=== PATIENT | female | born 1940 | race Caucasian/White ===

== ENCOUNTER 2021-06-22 09:28 | Outpatient (REF) | payer MEDICARE, SELFPAY ==
--- NOTE | ~2021-06-22 | MM_ITS ---
EXAMINATION: BONE DENSITOMETRY CLINICAL INDICATION: Asymptomatic menopausal state. COMPARISON: Previous BD dated 04/09/2028 and baseline BD dated 03/13/2012. TECHNIQUE: Using a [employer] DXA System (software version: 13.1) manufactured by [employer], dual-energy x-ray absorptiometry was performed of the lumbar spine and left hip. The images are of good technical quality. Summary results are attached. FINDINGS: AP SPINE L1-L4: Current: BMD 1.370 g/cm2, Z-score 3.1, T-score 1.6, normal, 1.9% increase from previous, 7.5% increase from baseline (<5% change is not significant). Prior: BMD 1.345 g/cm2. Baseline: BMD 1.275 g/cm2. LEFT FEMUR, NECK: Current: BMD 0.754 g/cm2, Z-score 0.0, T-score -2.0, osteopenia. Prior: BMD 0.831 g/cm2. Baseline: BMD 1.027 g/cm2. LEFT FEMUR, TOTAL: Current: BMD 0.831 g/cm2, Z-score 0.5, T-score -1.4, osteopenia, 6.9% decrease from previous, 18.6% decrease from baseline (<5% change is not significant). Prior: BMD 0.893 g/cm2. Baseline: BMD 1.021 g/cm2. IDENTIFIED RISK FACTORS: Height loss, menopause. HISTORY OF FRACTURE: None listed. MEDICATIONS: Vitamin D. MM/XR DEXA axial skeleton IMPRESSION: 1. DIAGNOSIS: Osteopenia based on the lowest T-score value of -2.0 in the femoral neck applying World Health Organization criteria. 2. 10-YEAR FRACTURE RISK PREDICTION, FRAX: Major osteoporotic fracture (clinical spine, forearm, hip or shoulder) 16.3%. Hip fracture 5.1%. 3. Treatment Recommendations: NOF guidelines recommend consideration for treatment in postmenopausal women and men age 50 and older presenting with the following: -A hip or vertebral (clinical or morphometric) fracture. -T-score less than or equal to -2.5 at the femoral neck or spine after appropriate evaluation to exclude secondary causes. -Low bone mass at the hip or spine and a 10-year fracture probability by FRAX of greater than or equal to 3% for hip fracture or greater than or equal to 20% for major osteoporotic fracture based on the [place] adapted WHO algorithm. 4. Other Recommendations: All treatment decisions require clinical judgment and consideration of individual patient factors, including patient preferences, comorbidities, previous drug use, risk factors not captured in the FRAX model (e.g. frailty, falls, vitamin D deficiency, increased bone turnover, interval significant decline in bone density) and possible under or overestimation of fracture risk by FRAX. Additional medical evaluation for secondary cause of low bone mineral density may be appropriate. FUTURE SCAN RECOMMENDATION: People with diagnosed cases of osteoporosis or at high risk for fracture should have regular bone mineral density tests. For patients eligible for Medicare, routine testing is allowed once every 2 years. The testing frequency can be increased to one year for patients who have rapidly progressing disease, those who are receiving or discontinuing medical therapy to restore bone mass, or have additional risk factors.
--- NOTE | ~2021-06-22 | MM_ITS ---
EXAMINATION: MM SCREENING DIGITAL BREAST TOMOSYNTHESIS, BILATERAL CLINICAL INFORMATION: Screening. Asymptomatic. COMPARISON: Mammography: May 10, 2020 and studies dating back to March 13, 2012 TECHNIQUE: Digital breast tomosynthesis is performed in both the craniocaudal and mediolateral oblique views along with computer-aided detection (CAD). Synthesized 2D images are generated from the tomosynthesis. FINDINGS: There are scattered areas of fibroglandular density (ACR BI-RADS breast composition Category b). There are no significant masses, abnormal calcifications, or other abnormalities. MM/MM tomosynthesis screening BI IMPRESSION: There are no significant changes from prior study. ASSESSMENT: BI-RADS 1: Negative RECOMMENDATION: Routine annual mammography screening. This patient's information was entered into a reminder system with a target due date for their next mammogram.
== END 2021-06-22 09:29 | disposition home or self-care (01) ==
LOC: HO.MAMMO 09:28
PROVIDERS: PCP Internal Medicine; Visit Provider Internal Medicine
DX: Z12.31 Encounter for screening mammogram for malignant neoplasm of breast (principal); Z13.850 Encounter for screening for traumatic brain injury; M85.852 Other specified disorders of bone density and structure, left thigh; Z78.0 Asymptomatic menopausal state; Z79.899 Other long term (current) drug therapy
CPT/HCPCS: 77063; 77067; 77080

== ENCOUNTER 2021-07-23 07:44 | Outpatient (REF) | payer MEDICARE, SELFPAY ==
[2021-07-23 12:10] LABS: Alanine Aminotransferase 14 U/L (0-31); Aspartate Amino Transferase 15 U/L (5-31); Cholesterol 229 mg/dL; HDL Cholesterol 64 mg/dL; LDL Cholesterol Calculated 149 mg/dl; Triglycerides 84 mg/dL
== END 2021-07-23 07:45 | disposition home or self-care (01) ==
LOC: HO.HMGCLDS 07:44
PROVIDERS: PCP Internal Medicine; Visit Provider Internal Medicine
DX: E78.5 Hyperlipidemia, unspecified (principal)
CPT/HCPCS: 36415; 80061; 84450; 84460

== ENCOUNTER 2022-06-27 09:38 | Outpatient (REF) | payer MEDICARE, SELFPAY ==
--- NOTE | ~2022-06-27 | MM_ITS ---
EXAMINATION: MM SCREENING DIGITAL BREAST TOMOSYNTHESIS, BILATERAL CLINICAL INFORMATION: Screening. Asymptomatic. Remote left lumpectomy for breast cancer, 1998. COMPARISON: Mammography: 06/22/2021, 05/10/2020, 04/13/2019 TECHNIQUE: Digital breast tomosynthesis is performed in both the craniocaudal and mediolateral oblique views along with computer-aided detection (CAD). Synthesized 2D images are generated from the tomosynthesis. FINDINGS: There are scattered areas of fibroglandular density (ACR BI-RADS breast composition Category b). There are no significant masses, abnormal calcifications, or other abnormalities. There are postsurgical changes on the left with mild reduced breast size and minor scarring. There are benign coarse calcifications again seen posterior upper outer left breast. No developing density or architectural abnormality. No significant changes. MM/MM tomosynthesis screening BI IMPRESSION: No mammographic evidence of malignancy. ASSESSMENT: BI-RADS 2: Benign RECOMMENDATION: Routine annual mammography screening. This patient's information was entered into a reminder system with a target due date for their next mammogram.
== END 2022-06-27 09:39 | disposition home or self-care (01) ==
LOC: HO.MAMMO 09:38
PROVIDERS: PCP Internal Medicine; Visit Provider Internal Medicine
DX: Z12.31 Encounter for screening mammogram for malignant neoplasm of breast (principal)
CPT/HCPCS: 77063; 77067

== ENCOUNTER 2022-07-26 08:13 | Outpatient (REF) | payer MEDICARE, SELFPAY ==
[2022-07-26 11:53] LABS: Cholesterol 259 mg/dL; HDL Cholesterol 73 mg/dL; LDL Cholesterol Calculated 170 mg/dl; Triglycerides 82 mg/dL
[2022-07-26 12:16] LABS: Vitamin D 25-OH Total 44.5 ng/mL (>30)
== END 2022-07-26 08:14 | disposition home or self-care (01) ==
LOC: HO.HMGCLDS 08:13
PROVIDERS: PCP Internal Medicine; Visit Provider Internal Medicine
DX: E78.5 Hyperlipidemia, unspecified (principal); M85.852 Other specified disorders of bone density and structure, left thigh; Z78.0 Asymptomatic menopausal state
CPT/HCPCS: 36415; 80061; 82306

== ENCOUNTER 2023-03-10 08:25 | Day surgery (SDC) | payer MEDICARE, SELFPAY ==
[2023-03-04 15:17] VITALS: BMI 26.3
--- NOTE | 2023-03-06 13:20 | MHC.SHP ---
Pre-Procedural Eval Section A Date of Service: 03/06/23 The patient is an INPATIENT: No Changes since office visit: No Cold of Flu in the past 2 weeks, No New Medical Problems, No Changes in Medication and No Patient answered all questions The History & Physical has been completed within 30 days and I have reviewed it.: Yes Section B Chief Complaint: Age-related nuclear cataract, right eye Allergies: Allergies Allergy/AdvReac Type Severity Reaction Status Date / Time nitrofurantoin AdvReac Severe Diarrhea Verified 03/04/23 15:17 atorvastatin AdvReac Intermediate muslce pain Verified 03/04/23 15:17 simvastatin AdvReac Intermediate muscle pain Verified 03/04/23 15:17 Plan Diagnosis/Plan: Unchanged I have reviewed the history and physical and performed a pertinent physical examination on my patient. No changes have occurred unless specified. Time Spent With Patient Time: Total time managing care of this patient today ____ minutes.
--- NOTE | 2023-03-07 10:10 | P.CONAN_ITS ---
Documented by User: Tri Mello NP 03/07/23 10:13 HPI - Anesthesia Eval Consult details Narrative: 83yo F for Right Cataract Extraction IOL Insertion PCP cleared No previous cataract PMFSH Active Problems Active Problems: All Active Problems (Updated 03/04/23 @ 15:19 by Mary Jaeger RN) Menopause (Acute) Statin intolerance (Acute) Dyslipidemia (Acute) Osteopenia of left femoral neck (Acute) Past Medical History Medical History (Updated 03/04/23 @ 15:19 by Mary Jaeger RN) Cataract Ductal carcinoma in situ (DCIS) of breast Dyslipidemia H/O bladder problems Menopause Osteopenia of left femoral neck Sciatica of right side Statin intolerance Family History Family History Father No problems noted. Mother No problems noted. Maternal Aunt No problems noted. Maternal Uncle No problems noted. Surgical History Surgical History (Updated 03/04/23 @ 15:16 by Mary Jaeger RN) History of prolapse of bladder History of pubovaginal sling Hx of colonoscopy S/P lumpectomy, left breast Social History Social History Housing: House Are you a primary director of critical care to a significant other at home: No Do you presently have visiting nurse or other home services: No Alcohol intake: current Patient Tobacco Use Status: Never used Tobacco e-Cigarette/Vaping Use: Never Used Use of substances other than those prescribed or required for medical reasons: No Have you been hit, kicked, punched, or otherwise hurt by someone within the past year? If so, by whom?: No Are you DNR?: No Advance Directives: No Advance Directives Information Provided: Yes Advance Directives on File: No Recently lost weight without trying: No Nutrition Risks: Surgical patient >75years Current occupational status: retired Cognitive needs: No Hearing needs: No Vision needs: Yes Meds Allergies Allergy/AdvReac Type Severity Reaction Status Date / Time nitrofurantoin AdvReac Severe Diarrhea Verified 03/10/23 09:03 atorvastatin AdvReac Intermediate muslce pain Verified 03/10/23 09:03 simvastatin AdvReac Intermediate muscle pain Verified 03/10/23 09:03 Home Medications Medication Instructions Recorded Confirmed Last Taken Type cholecalciferol (vitamin D3) 50 50 mcg PO DAILY 07/13/20 03/10/23 Unknown History mcg (2,000 unit) tablet Exam Exam Date and Time: March 07, 2023 1010 Height,Weight and Vital Signs: Height 5 ft 6 in Weight 73.936 kg Assessment and Plan Assessment Anesthesia Assessment: Chart Reviewed Documented by User: Jaime Hernandez MD 03/10/23 18:11 [facility] Past Medical History Medical History (Updated 03/04/23 @ 15:19 by Mary Jaeger RN) Cataract Ductal carcinoma in situ (DCIS) of breast Dyslipidemia H/O bladder problems Menopause Osteopenia of left femoral neck Sciatica of right side Statin intolerance Functional capacity: independent ambulation Family History Family History Father No problems noted. Mother No problems noted. Maternal Aunt No problems noted. Maternal Uncle No problems noted. Family history of problems with anesthesia: No Surgical History Surgical History (Updated 03/04/23 @ 15:16 by Mary Jaeger RN) History of prolapse of bladder History of pubovaginal sling Hx of colonoscopy S/P lumpectomy, left breast History of Problems with Anesthesia: No Social History Social History Housing: House Are you a primary director of critical care to a significant other at home: No Do you presently have visiting nurse or other home services: No Alcohol intake: current Patient Tobacco Use Status: Never used Tobacco e-Cigarette/Vaping Use: Never Used Use of substances other than those prescribed or required for medical reasons: No Have you been hit, kicked, punched, or otherwise hurt by someone within the past year? If so, by whom?: No Are you DNR?: No Advance Directives: No Advance Directives Information Provided: Yes Advance Directives on File: No Recently lost weight without trying: No Nutrition Risks: Surgical patient >75years Current occupational status: retired Cognitive needs: No Hearing needs: No Vision needs: Yes Meds Allergies Allergy/AdvReac Type Severity Reaction Status Date / Time nitrofurantoin AdvReac Severe Diarrhea Verified 03/10/23 09:03 atorvastatin AdvReac Intermediate muslce pain Verified 03/10/23 09:03 simvastatin AdvReac Intermediate muscle pain Verified 03/10/23 09:03 Home Medications Medication Instructions Recorded Confirmed Last Taken Type cholecalciferol (vitamin D3) 50 50 mcg PO DAILY 07/13/20 03/10/23 Unknown History mcg (2,000 unit) tablet Exam Airway Mallampati Class: III Neck ROM: Full Loose/Missing/Broken Teeth: Yes (chipped teeth) Assessment and Plan Final Anesthetic Review Family History of Problems with Anesthesia: No History of Problems with Anesthesia: No NPO: Yes ASA Class: II Final Preanesthetic Review: Meds/Allgs Chart Reviewed, Consent Obtained/Reviewed and Anes Risks/Benef Reviewed Patient Risk: Intermediate Procedure Risk: Intermediate Anesthetic Plan Anesthetic Plan: MAC: and Agree w/ Assess. and Plan Disposition: Standard PACU
[2023-03-10 09:04] VITALS: BP 167/97; PULSE 89; RESP 16; TEMP 36.7; O2SAT 97
[2023-03-10] MEDS: Tetracaine HCl/PF 0.5% Oph Sol 4 ML DROPS 1 DROP EYE-RIGHT (09:09)
[2023-03-10] MEDS: Cyclopentolate 1 % Ophth Sol 2 ML DRPBTL 1 DROP EYE-RIGHT ×3 (09:10→09:26)
[2023-03-10] MEDS: Ketorolac Tromethamine 0.5% Op 5 ML DROPS 1 DROP EYE-RIGHT ×3 (09:14→09:30)
[2023-03-10] MEDS: Phenylephrine HCL 2.5% Oph SoL 2 ML BOTTLE 1 DROP EYE-RIGHT ×3 (09:16→09:32)
[2023-03-10] MEDS: Lactated Ringers 500 ML 50 ML IV (09:24)
--- NOTE | 2023-03-10 10:37 | HO.PNOPHT ---
Ophthalmology Procedure Procedure Date of Service: 03/10/23 Ophthalmology Viscoelastic: Healdonna Duet Dual Pack Pro Ophthalmology Lenses: TECNIS [id number] (24.5) Procedure Notes: PREOPERATIVE DIAGNOSIS: Decreased visual acuity right eye secondary to cataract POSTOPERATIVE DIAGNOSIS: Same PROCEDURE: Right cataract extraction with intraocular lens insertion SURGEON: Matt Hanna M.D. ANESTHESIA: Topical/MAC ESTIMATED BLOOD LOSS: None COMPLICATIONS: None After obtaining informed consent, the patient was brought to the operating room suite and placed in the supine position. After adequate sedation per anesthesia, topical drops of Tetracaine were given to the right eye. The eye was then prepped and draped in the usual sterile fashion. The operating room microscope was then positioned over the operative eye and a lid speculum placed. A paracentesis was created. Viscoelastic was then instilled into the anterior chamber. A three plane incision was then created temporally, utilizing a 2.85 mm keratome. Capsulotomy forceps were then utilized to create a circular tear capsulotomy. Hydrodissection and hydrodelineation were carried out until adequate mobilization of the nucleus occurred. Phacoemulsification was then utilized to remove the dense central nucleus followed by removal of the cortical material utilizing the automated aspiration irrigation unit. Viscoelastic was instilled into the posterior capsular bag followed by placement of a posterior chamber intraocular lens without difficulty. The residual Viscoelastic was then removed utilizing the automated IA machine. The wound was checked and found to be watertight. The patient tolerated the procedure well and the lid speculum was removed. Intracameral injection of Vigamox 0.1 mL followed by a subtenon injection of Kenalog-40 0.2 mL were administered. The patient will be seen in the a.m.
[2023-03-10 11:06] VITALS: BP 129/72; PULSE 74; RESP 16; TEMP 36.6; O2SAT 97
== END 2023-03-10 11:15 | disposition home or self-care (01) ==
PROVIDERS: PCP Internal Medicine; Visit Provider Ophthalmology
PROC: (CPT 66985; principal; 2023-03-10 11:10)
DX: H25.11 Age-related nuclear cataract, right eye (principal); H54.7 Unspecified visual loss; E78.5 Hyperlipidemia, unspecified; M85.852 Other specified disorders of bone density and structure, left thigh; Z85.3 Personal history of malignant neoplasm of breast; Z88.8 Allergy status to other drugs, medicaments and biological substances; Z79.899 Other long term (current) drug therapy; T46.6X5A Adverse effect of antihyperlipidemic and antiarteriosclerotic drugs, initial encounter; Y92.9 Unspecified place or not applicable
CPT/HCPCS: 66984; J2250; J3010; J3301; V2632

== ENCOUNTER 2023-03-24 07:29 | Day surgery (SDC) | payer MEDICARE, SELFPAY ==
[2023-03-04 15:19] VITALS: BMI 26.3
--- NOTE | 2023-03-21 08:10 | MHC.SHP ---
Pre-Procedural Eval Section A Date of Service: 03/21/23 The patient is an INPATIENT: No Changes since office visit: No Cold of Flu in the past 2 weeks, No New Medical Problems, No Changes in Medication and No Patient answered all questions The History & Physical has been completed within 30 days and I have reviewed it.: Yes Section B Chief Complaint: Age-related nuclear cataract, left eye Allergies: Allergies Allergy/AdvReac Type Severity Reaction Status Date / Time nitrofurantoin AdvReac Severe Diarrhea Verified 03/10/23 09:03 atorvastatin AdvReac Intermediate muslce pain Verified 03/10/23 09:03 simvastatin AdvReac Intermediate muscle pain Verified 03/10/23 09:03 Plan Diagnosis/Plan: Unchanged I have reviewed the history and physical and performed a pertinent physical examination on my patient. No changes have occurred unless specified. Time Spent With Patient Time: Total time managing care of this patient today ____ minutes.
--- NOTE | 2023-03-21 09:33 | P.CONAN_ITS ---
Documented by User: Tri Mello NP 03/21/23 09:34 HPI - Anesthesia Eval Consult details Narrative: 83yo F for Left Cataract Multifocal with IOL Insertion PCP cleared Right eye 03/10/23: Fent 50, Midaz 0.5 No IV/BP on LUE PMFSH Active Problems Active Problems: All Active Problems (Updated 03/04/23 @ 15:19 by Mary Jaeger, DERIAN) Menopause (Acute) Statin intolerance (Acute) Dyslipidemia (Acute) Osteopenia of left femoral neck (Acute) Past Medical History Medical History Cataract Ductal carcinoma in situ (DCIS) of breast Dyslipidemia H/O bladder problems Menopause Osteopenia of left femoral neck Sciatica of right side Statin intolerance Family History Family History Father No problems noted. Mother No problems noted. Maternal Aunt No problems noted. Maternal Uncle No problems noted. Family history of problems with anesthesia: No Surgical History Surgical History History of prolapse of bladder History of pubovaginal sling Hx of colonoscopy S/P lumpectomy, left breast History of Problems with Anesthesia: No Social History Social History Housing: House Are you a primary senior care provider to a significant other at home: No Do you presently have visiting nurse or other home services: No Alcohol intake: current Patient Tobacco Use Status: Never used Tobacco e-Cigarette/Vaping Use: Never Used Use of substances other than those prescribed or required for medical reasons: No Have you been hit, kicked, punched, or otherwise hurt by someone within the past year? If so, by whom?: No Are you DNR?: No Advance Directives: No Advance Directives Information Provided: Yes Advance Directives on File: No Recently lost weight without trying: No Nutrition Risks: Surgical patient >75years Current occupational status: retired Cognitive needs: No Hearing needs: No Vision needs: Yes Meds Allergies Allergy/AdvReac Type Severity Reaction Status Date / Time nitrofurantoin AdvReac Severe Diarrhea Verified 03/10/23 09:03 atorvastatin AdvReac Intermediate muslce pain Verified 03/10/23 09:03 simvastatin AdvReac Intermediate muscle pain Verified 03/10/23 09:03 Home Medications Medication Instructions Recorded Confirmed Last Taken Type cholecalciferol (vitamin D3) 50 50 mcg PO DAILY 07/13/20 03/10/23 Unknown History mcg (2,000 unit) tablet Exam Exam Date and Time: March 21, 2023 0933 Height,Weight and Vital Signs: Height 5 ft 6 in Weight 73.936 kg Assessment and Plan Assessment Anesthesia Assessment: Chart Reviewed Final Anesthetic Review Family History of Problems with Anesthesia: No History of Problems with Anesthesia: No Documented by User: Yari Dickey MD 03/24/23 11:18 [facility] Past Medical History Medical History Cataract Ductal carcinoma in situ (DCIS) of breast Dyslipidemia H/O bladder problems Menopause Osteopenia of left femoral neck Sciatica of right side Statin intolerance Family History Family History Father No problems noted. Mother No problems noted. Maternal Aunt No problems noted. Maternal Uncle No problems noted. Surgical History Surgical History History of prolapse of bladder History of pubovaginal sling Hx of colonoscopy S/P lumpectomy, left breast Social History Social History Housing: House Are you a primary senior care provider to a significant other at home: No Do you presently have visiting nurse or other home services: No Alcohol intake: current Patient Tobacco Use Status: Never used Tobacco e-Cigarette/Vaping Use: Never Used Use of substances other than those prescribed or required for medical reasons: No Have you been hit, kicked, punched, or otherwise hurt by someone within the past year? If so, by whom?: No Are you DNR?: No Advance Directives: No Advance Directives Information Provided: Yes Advance Directives on File: No Recently lost weight without trying: No Nutrition Risks: Surgical patient >75years Current occupational status: retired Cognitive needs: No Hearing needs: No Vision needs: Yes Meds Allergies Allergy/AdvReac Type Severity Reaction Status Date / Time nitrofurantoin AdvReac Severe Diarrhea Verified 03/10/23 09:03 atorvastatin AdvReac Intermediate muslce pain Verified 03/10/23 09:03 simvastatin AdvReac Intermediate muscle pain Verified 03/10/23 09:03 Home Medications Medication Instructions Recorded Confirmed Last Taken Type cholecalciferol (vitamin D3) 50 50 mcg PO DAILY 07/13/20 03/10/23 Unknown History mcg (2,000 unit) tablet Exam Airway Mallampati Class: II TM Dist: >3cm Neck ROM: Full Loose/Missing/Broken Teeth: No Heart: RRR Lungs: CTA Assessment and Plan Assessment Anesthesia Assessment: Anesthesia Plan Discussed Final Anesthetic Review NPO: Yes ASA Class: II Final Preanesthetic Review: Meds/Allgs Chart Reviewed, Consent Obtained/Reviewed and Anes Risks/Benef Reviewed Patient Risk: Low Procedure Risk: Low Anesthetic Plan Anesthetic Plan: MAC: Disposition: Standard PACU
[2023-03-24] MEDS: Tetracaine HCl/PF 0.5% Oph Sol 4 ML DROPS 1 DROP EYE-LEFT (10:23)
[2023-03-24] MEDS: Lactated Ringers 500 ML 50 ML IV (10:23)
[2023-03-24] MEDS: Ketorolac Tromethamine 0.5% Op 5 ML DROPS 1 DROP EYE-LEFT ×3 (10:24→10:34)
[2023-03-24] MEDS: Cyclopentolate 1 % Ophth Sol 2 ML DRPBTL 1 DROP EYE-LEFT ×3 (10:24→10:34)
[2023-03-24] MEDS: Phenylephrine HCL 2.5% Oph SoL 2 ML BOTTLE 1 DROP EYE-LEFT ×3 (10:24→10:33)
[2023-03-24 10:26] VITALS: BP 129/74; PULSE 77; RESP 18; TEMP 36.7; O2SAT 97
[2023-03-24] MEDS: Tropicamide 1 % Ophth Sol 3 ML BTL 1 DROP EYE-LEFT ×2 (10:28→10:34)
--- NOTE | 2023-03-24 11:04 | HO.PNOPHT ---
Ophthalmology Procedure Procedure Date of Service: 03/24/23 Ophthalmology Viscoelastic: Healon Duet Dual Pack Pro Ophthalmology Lenses: TECRADHA [id number] (25) Procedure Notes: PREOPERATIVE DIAGNOSIS: Decreased visual acuity left eye secondary to cataract POSTOPERATIVE DIAGNOSIS: Same PROCEDURE: Left cataract extraction with intraocular lens insertion SURGEON: Matt Hanna M.D. ANESTHESIA: Topical/MAC ESTIMATED BLOOD LOSS: None COMPLICATIONS: None After obtaining informed consent, the patient was brought to the operation room suite and placed in the supine position. After adequate sedation per anesthesia, topical drops of Tetracaine were given to the left eye. The eye was then prepped and draped in the usual sterile fashion. The operating room microscope was then positioned over the operative eye and a lid speculum placed. A paracentesis was created. Viscoelastic was then instilled into the anterior chamber. A three plane incision was then created temporally, utilizing a 2.85 mm keratome. Capsulotomy forceps were then utilized to create a circular tear capsulotomy. Hydrodissection and hydrodelineation were carried out until adequate mobilization of the nucleus occurred. Phacoemulsification was then utilized to remove the dense central nucleus followed by removal of the cortical material utilizing the automated aspiration irrigation unit. Viscoat elastic was instilled into the posterior capsular bag followed by placement of a posterior chamber intraocular lens without difficulty. The residual Viscoat elastic was then removed utilizing the automated IA machine. The wound was check and found to be watertight. The patient tolerated the procedure well and the lid speculum was removed. Intracameral injection of Vigamox 0.1 mL followed by a subtenon injection of Kenalog-40 0.2 mL were administered. The patient will be seen in the a.m.
[2023-03-24 11:30] VITALS: BP 102/65; PULSE 73; RESP 16; TEMP 36.6; O2SAT 95
== END 2023-03-24 11:36 | disposition home or self-care (01) ==
PROVIDERS: PCP Internal Medicine; Visit Provider Ophthalmology
PROC: (CPT 66985; principal; 2023-03-24 11:10)
DX: H25.12 Age-related nuclear cataract, left eye (principal); H52.4 Presbyopia; H18.413 Arcus senilis, bilateral; M85.852 Other specified disorders of bone density and structure, left thigh; E78.00 Pure hypercholesterolemia, unspecified; L71.9 Rosacea, unspecified; E78.5 Hyperlipidemia, unspecified; Z79.899 Other long term (current) drug therapy; Z88.8 Allergy status to other drugs, medicaments and biological substances; Z85.3 Personal history of malignant neoplasm of breast
CPT/HCPCS: 66984; J2250; J3010; J3301; V2632

== ENCOUNTER 2023-07-03 09:39 | Outpatient (REF) | payer MEDICARE, SELFPAY ==
--- NOTE | ~2023-07-03 | MM_ITS ---
EXAMINATION: BONE DENSITOMETRY CLINICAL INDICATION: Osteopenia. COMPARISON: Previous BD dated 06/22/2021 and baseline BD dated 03/13/2012. TECHNIQUE: Using a [employer] DXA System (software version: 13.1) manufactured by [employer], dual-energy x-ray absorptiometry was performed of the lumbar spine and left hip. The images are of good technical quality. Summary results are attached. FINDINGS: LEFT FEMUR, NECK: Current: BMD 0.844 g/cm2, Z-score 0.7, T-score -1.4, osteopenia. Prior: BMD 0.754 g/cm2. Baseline: BMD 1.027 g/cm2. LEFT FEMUR, TOTAL: Current: BMD 0.878 g/cm2, Z-score 1.0, T-score -1.0, normal, 5.7% increase from previous, 14.0% decrease from baseline (<5% change is not significant). Prior: BMD 0.831 g/cm2. Baseline: BMD 1.021 g/cm2. AP SPINE L1-L4: Current: BMD 1.375 g/cm2, Z-score 3.2, T-score 1.6, normal, 0.4% increase from previous, 7.8% increase from baseline (<5% change is not significant). Prior: BMD 1.370 g/cm2. Baseline: BMD 1.275 g/cm2. IDENTIFIED RISK FACTORS: Early menopause, secondary osteoporosis. HISTORY OF FRACTURE: None listed. MEDICATIONS: Vitamin D. MM/XR DEXA axial skeleton IMPRESSION: 1. DIAGNOSIS: Osteopenia based on the lowest T-score value of -1.4 in the lumbar spine applying World Health Organization criteria. 2. 10-YEAR FRACTURE RISK PREDICTION, FRAX: Major osteoporotic fracture (clinical spine, forearm, hip or shoulder) 13.3%. Hip fracture 3.4%. 3. Treatment Recommendations: NOF guidelines recommend consideration for treatment in postmenopausal women and men age 50 and older presenting with the following: -A hip or vertebral (clinical or morphometric) fracture. -T-score less than or equal to -2.5 at the femoral neck or spine after appropriate evaluation to exclude secondary causes. -Low bone mass at the hip or spine and a 10-year fracture probability by FRAX of greater than or equal to 3% for hip fracture or greater than or equal to 20% for major osteoporotic fracture based on the [place] adapted WHO algorithm. 4. Other Recommendations: All treatment decisions require clinical judgment and consideration of individual patient factors, including patient preferences, comorbidities, previous drug use, risk factors not captured in the FRAX model (e.g. frailty, falls, vitamin D deficiency, increased bone turnover, interval significant decline in bone density) and possible under or overestimation of fracture risk by FRAX. Additional medical evaluation for secondary cause of low bone mineral density may be appropriate. FUTURE SCAN RECOMMENDATION: People with diagnosed cases of osteoporosis or at high risk for fracture should have regular bone mineral density tests. For patients eligible for Medicare, routine testing is allowed once every 2 years. The testing frequency can be increased to one year for patients who have rapidly progressing disease, those who are receiving or discontinuing medical therapy to restore bone mass, or have additional risk factors.
--- NOTE | ~2023-07-03 | MM_ITS ---
EXAMINATION: MM SCREENING DIGITAL BREAST TOMOSYNTHESIS, BILATERAL CLINICAL INFORMATION: Screening. Asymptomatic. The patient has a history of left breast cancer diagnosed and treated in 1998. COMPARISON: Mammography: This study is compared with prior exams dating back to 2018. TECHNIQUE: Digital breast tomosynthesis is performed in both the craniocaudal and mediolateral oblique views along with computer-aided detection (CAD). Synthesized 2D images are generated from the tomosynthesis. FINDINGS: There are scattered areas of fibroglandular density (ACR BI-RADS breast composition Category b). There are no significant masses, abnormal calcifications, or other abnormalities. There are minor postsurgical changes and benign, dystrophic calcifications in the upper outer quadrant of the left breast. MM/MM tomosynthesis screening BI IMPRESSION: No mammographic evidence of malignancy. ASSESSMENT: BI-RADS BI-RADS 2 - Benign Findings RECOMMENDATION: Routine annual mammography screening. 1 year F/U This examination should not preclude the clinical evaluation of a suspicious palpable abnormality. This patient's information was entered into a reminder system with a target due date for their next mammogram.
== END 2023-07-03 09:40 | disposition home or self-care (01) ==
LOC: HO.MAMMO 09:39
PROVIDERS: PCP Internal Medicine; Visit Provider Internal Medicine
DX: Z12.31 Encounter for screening mammogram for malignant neoplasm of breast (principal); Z13.820 Encounter for screening for osteoporosis; Z78.0 Asymptomatic menopausal state; M85.852 Other specified disorders of bone density and structure, left thigh
CPT/HCPCS: 77063; 77067; 77080

== ENCOUNTER → 2023-07-03 10:15 | Outpatient (BNV) | payer MEDICARE, SELFPAY | PROVIDERS: PCP Internal Medicine; Visit Provider Radiology Diagnostic Radiology | DX: Z12.31 Encounter for screening mammogram for malignant neoplasm of breast (principal) | CPT/HCPCS: 77063; 77067 ==

== ENCOUNTER 2023-08-05 08:07 | Outpatient (REF) | payer MEDICARE, SELFPAY ==
[2023-08-05 11:55] LABS: Alanine Aminotransferase 10 U/L (0-31); Aspartate Amino Transferase 14 U/L (5-31); Cholesterol 228 mg/dL (<200); Glucose Fasting 92 mg/dL (60-99); HDL Cholesterol 61 mg/dL (>40); LDL Cholesterol Calculated 149 mg/dL (<100); Triglycerides 92 mg/dL (<150)
[2023-08-05 12:10] LABS: Vitamin D 25-OH Total 63.2 ng/mL (>30)
== END 2023-08-05 08:08 | disposition home or self-care (01) ==
LOC: HO.HMGCLDS 08:07
PROVIDERS: PCP Internal Medicine; Visit Provider Internal Medicine
DX: E78.5 Hyperlipidemia, unspecified (principal); M85.852 Other specified disorders of bone density and structure, left thigh; Z78.0 Asymptomatic menopausal state
CPT/HCPCS: 36415; 80061; 82306; 82947; 84450; 84460

== ENCOUNTER 2023-09-08 07:22 | Emergency (ER) | payer MEDICARE, SELFPAY ==
[2023-09-08 07:36] VITALS: BP 116/82; PULSE 57; O2SAT 96
--- NOTE | 2023-09-08 07:37 | ED_ITS ---
HPI - Weakness General Chief complaint: Urogenital-Female Stated complaint: WEAK,ABD PAIN THIS AM/RESOLVED,RECENT UTI,NO MEDS Time Seen by Provider: 09/08/23 07:31 Source: patient and EMS Mode of arrival: EMS Limitations: no limitations History of Present Illness HPI Narrative: Patient with dysuria and frequency for 1 week, has not been eating, she felt too weak today and called EMS MD Complaint: generalized weakness Onset (ago): week(s) Duration: constant Severity: mild Related Data Home Medications Medication Instructions Recorded Confirmed cholecalciferol (vitamin D3) 50 50 mcg PO DAILY 07/13/20 03/10/23 mcg (2,000 unit) tablet Allergies Allergy/AdvReac Type Severity Reaction Status Date / Time nitrofurantoin AdvReac Severe Diarrhea Verified 03/10/23 09:03 atorvastatin AdvReac Intermediate muslce pain Verified 03/10/23 09:03 simvastatin AdvReac Intermediate muscle pain Verified 03/10/23 09:03 Review of Systems 2 Review of Systems: Yes all other systems are reviewed and are negative Neurologic: Denies Sensory deficit (Neuro) [facility] Past Medical History Medical History Sciatica of right side Cataract Menopause Statin intolerance Dyslipidemia 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 Mother No problems noted. Maternal Aunt No problems noted. Maternal Uncle No problems noted. Social History Social History Housing: House Are you a primary medicare compliance auditor to a significant other at home: No Do you presently have visiting nurse or other home services: No Alcohol intake: current Alcohol intake frequency: holidays/special occasions only Alcohol type: beer and wine Patient Tobacco Use Status: Never used Tobacco Smoked in Last 30 Days: No e-Cigarette/Vaping Use: Never Used Use of substances other than those prescribed or required for medical reasons: No Advance Directives: No Advance Directives Information Provided: No Current occupational status: retired Cognitive needs: No Hearing needs: No Vision needs: Yes Physical Exam 2 Vital Signs: Vital Signs: Last Vital Signs Temp 97.7 F 09/08/23 08:18 Pulse 90 09/08/23 08:18 Resp 16 09/08/23 08:18 BP 108/57 L 09/08/23 08:18 Pulse Ox 97 09/08/23 08:18 O2 Del Method Room Air 09/08/23 08:18 BMI result Body Mass Index 23.9 Const: Other: elderly female General: healthy appearing Nutritional Appearance: average body habitus Orientation/consciousness: oriented to person and patient oriented x3 L imitations: no limitations HEENT: Head: Yes normal to inspection Ears: external ears normal General nose exam: Normal external nose present Mouth: Normal oral and palatal mucosa present and oropharynx normal Throat: Yes posterior oropharynx normal Eyes: General: appearance normal, both eyes and all related structures Neck: Other: supple Neck: Yes normal visual inspection Chest: Chest palpation & inspection: normal inspection of the chest Resp: Auscultation: clear to auscultation bilaterally Cardio: Jugular venous distension: no JVD Rate: regular rate Rhythm: r egular rhythm Heart sounds: S1 normal heart sound present and S2 normal heart sound present GI: Inspection: Yes normal to inspection Palpation (GI): Soft to palpation, nontender and No hepatosplenomegaly present Auscultation: normal bowel sounds : General: Yes no CVA tenderness Back/Spine/Pelvis: Back: no CVA tenderness Skin: General skin exam: no rashes or lesions noted Neuro: General: oriented to person and patient oriented x3 Cranial nerves: Yes CN's II-XII intact bilaterally Motor exam (neuro): 5/5 motor strength present throughout Sensory Exam: No Sensory deficit (Neuro) Extrem: General: Yes normal to inspection Psych: Appearance: grossly normal Course Reevaluation(s) Reevaluation #1: repeat abdominal exam negative, UA not consistent with Infection. She does have an elevated wBC count but no fever. Will dc home Time: 11:21 Medications Administered Discontinued Medications Generic Name Dose Route Start Last Admin Trade Name Freq PRN Reason Stop Dose Admin Sodium Chloride 1,000 mls @ 500 mls/hr 09/08/23 07:45 09/08/23 08:30 Ns IVCONT 09/08/23 09:44 500 mls/hr .Q2H JAKI Administration Medical Decision Making Differential Diagnosis Differential Diagnoses: The differential diagnosis associated with the presentation includes (sepsis, UTI, electrolyte abnormality, dehydration was all considered) Admission/Observation Consideration of admission/observation: Escalation of care including admission/observation considered (upon arrival patient was considered for admission) Lab Data 09/08/23 08:26 09/08/23 08:26 Labs: Lab Results 09/08/23 09/08/23 Range/Units 08:26 10:14 WBC 15.7 H (4.8-10.8) X10*3/uL RBC 4.43 (4.20-5.50) X10*6/uL Hgb 12.3 (12.0-16.0) g/dl Hct 37.0 (37.0-47.0) % MCV 83.5 (80.0-98.0) fL MCH 27.8 (27.0-33.0) pg MCHC 33.2 (31.0-35.0) g/dl RDW 13.9 (11.0-16.0) % Plt Count 478 H (160-400) X10*3/uL MPV 9.3 L (9.4-12.3) fL Immature Gran % (Auto) 0.6 H (0.0-0.4) % Neut % (Auto) 88.2 H (45-73) % Lymph % (Auto) 4.1 L (20-40) % [place] % (Auto) 6.6 (2-11) % Eos % (Auto) 0.2 (0-4) % Baso % (Auto) 0.3 (0-2) % Lymph # (Auto) 0.6 L (1.2-4.9) X10*3/uL [place] # (Auto) 1.0 (0.1-1.2) X10*3/uL Eos # (Auto) 0.0 (0.0-0.4) X10*3/uL Baso # (Auto) 0.0 (0.0-0.2) X10*3/uL Abs Immat Gran (auto) 0.09 H (0.00-0.03) X10*3/uL Absolute Neuts (auto) 13.9 H (2.0-8.3) x10*3/uL Absolute Nucleated RBC 0.000 (0.0-0.012) X10*3/uL Nucleated RBC % (auto) 0.0 (0.0-0.2) /100WBC Sodium 136 (135-145) mmol/L Potassium 4.1 (3.3-5.1) mmol/L Chloride 103 (96-108) mmol/L Carbon Dioxide 24 (22-29) mmol/L Anion Gap 13 (12-20) BUN 12 (9-16) mg/dL Creatinine 0.75 (0.5-1.4) mg/dL Estim Creat Clear Calc 52.2 Estimated GFR > 60 Random Glucose 119 H (60-115) mg/dL Calcium 8.6 (8.4-10.2) mg/dL Urine Color Yellow Urine Appearance Clear Urine pH 7.0 (5.0-9.0) Ur Specific [place] <= 1.005 (1.005-1.025) Urine Protein Negative (Neg-Trace) mg/dL Urine Glucose (UA) Negative (Negative) mg/dL Urine Ketones Negative (Negative) mg/dL Urine Blood Moderate (2+) H (Negative) Urine Nitrite Negative (Negative) Ur Leukocyte Esterase Negative (Negative) Urine RBC 3-5 H (0-2) /HPF Urine WBC 0-5 (0-5) /HPF Ur Squamous Epith Cells 0-2 (0-2) /HPF Urine Bacteria None Seen (None Seen) Hyaline Casts 0-2 (0-2) /LPF Independent Historian Clinical information obtained from an independent historian. History obtained from or confirmed by: EMS Prescription Management I considered prescription management with: Antibiotic (there is an elevated wBC count but Urine does not show infection. Abx held at this time) Discharge Plan Discharge Clinical Impression: Dysuria, Leukocytosis Patient Disposition: Home, Self-Care Instructions: Dysuria (ED), Leukocytosis (ED) Additional Instructions: your urine did not show infection, but your White blood cells are elevated. Follow up with your doctor, return for fever or worsening symptoms Prescriptions: No Action cholecalciferol (vitamin D3) 50 mcg (2,000 unit) tablet 50 mcg PO DAILY Referrals: Dayanara Preston MD [Primary Care Provider] - 3 days
[2023-09-08 08:12] VITALS: BP 104/61; PULSE 90; RESP 18; TEMP 36.5; O2SAT 96; BMI 23.9
[2023-09-08 08:18] VITALS: BP 108/57; PULSE 90; RESP 16; TEMP 36.5; O2SAT 97
[2023-09-08] MEDS: 0.9 % Sodium Chloride 1,000 ML 500 ML IVCONT (08:30)
[2023-09-08 08:35] LABS: MANUAL DIFF FLAG NO
[2023-09-08 08:39] LABS: Basophils Percent Auto 0.3 % (0-2); Eosinophils Percent Auto 0.2 % (0-4); Hemoglobin 12.3 g/dl (12.0-16.0); Imm Gran Abs Auto 0.09 X10*3/uL (0.00-0.03); Imm Gran Pct Auto 0.6 % (0.0-0.4); Lymphocytes Absolute Auto 0.6 X10*3/uL (1.2-4.9); Lymphocytes Percent Auto 4.1 % (20-40); Mean Corpuscular HGB Conc 33.2 g/dl (31.0-35.0); Mean Corpuscular Hemoglobin 27.8 pg (27.0-33.0); Mean Corpuscular Volume 83.5 fL (80.0-98.0); Mean Platelet Volume 9.3 fL (9.4-12.3); Monocytes Percent Auto 6.6 % (2-11); Neutrophils Absolute Auto 13.9 x10*3/uL (2.0-8.3); Neutrophils Percent Auto 88.2 % (45-73); Platelet Count 478 X10*3/uL (160-400); Red Blood Count 4.43 X10*6/uL (4.20-5.50); Red Cell Distribution Width 13.9 % (11.0-16.0); White Blood Count 15.7 X10*3/uL (4.8-10.8)
[2023-09-08 08:52] LABS: Anion Gap 13 (12-20); Blood Urea Nitrogen 12 mg/dL (9-16); Calcium 8.6 mg/dL (8.4-10.2); Carbon Dioxide 24 mmol/L (22-29); Chloride 103 mmol/L (96-108); Creatinine Clr Calc Pharmacy 52.2; Estimated Glomerular Filt Rate > 60; Glucose Random 119 mg/dL (60-115); Potassium 4.1 mmol/L (3.3-5.1); Sodium 136 mmol/L (135-145)
[2023-09-08 10:00] VITALS: PULSE 65; RESP 18
[2023-09-08 10:28] LABS: Appearance Urine Clear; Color Urine Yellow; Glucose Urine UA Negative (Negative); Leukocyte Esterase Urine Negative (Negative); Nitrite Urine Negative (Negative); Specific Gravity - Urine <= 1.005 (1.005-1.025); UMIC TRIGGER UACC YES; Urine Blood Moderate (2+) (Negative); Urine Ketones Negative (Negative); Urine Protein Negative (Neg-Trace)
[2023-09-08 10:44] LABS: Bacteria Urine None Seen (None Seen); Hyaline Casts Urine 0-2 /LPF (0-2); Squamous Epithelial Cell Urine 0-2 /HPF (0-2); WBC Urine 0-5 /HPF (0-5)
[2023-09-08 11:55] VITALS: PULSE 99; RESP 16; TEMP 36.6; O2SAT 97
[2023-09-08 11:57] VITALS: BP 105/52
== END 2023-09-08 12:01 | disposition home or self-care (01) ==
PROVIDERS: Emergency Provider Emergency Medicine; PCP Internal Medicine
DX: R30.0 Dysuria (principal); R35.0 Frequency of micturition; R53.1 Weakness; D72.829 Elevated white blood cell count, unspecified; Z79.899 Other long term (current) drug therapy
CPT/HCPCS: 36415; 80048; 81001; 85025; 96360; 96361; 99284; 99285

== ENCOUNTER 2023-09-11 09:23 | Outpatient (AMB) | payer MEDICARE, SELFPAY ==
--- NOTE | 2023-09-11 09:41 | AM.OFFVISMDC ---
Intake Vital Signs 09/11/23 09:45 Height 5 ft 6 in Weight 154 lb 8 oz BMI 24.9 BP 132/76 Blood Pressure Location Rt brachial Position Sitting Pulse 98 Pulse Source Pulse Oximeter Pulse Oximetry (%) 97 Oxygen Delivery Method Room Air Intake Visit Reasons: AWV G0438 10/16/10discuss/bill ACP Intake Note: Pt is here for her AWV Allergies nitrofurantoin Adverse Reaction (Severe, Verified 09/11/23 10:13) Diarrhea atorvastatin Adverse Reaction (Intermediate, Verified 09/11/23 10:13) muslce pain simvastatin Adverse Reaction (Intermediate, Verified 09/11/23 10:13) muscle pain Medication List - Last Reconciled 09/11/23 by Dayanara Preston MD cholecalciferol (vitamin D3) 50 mcg PO DAILY HPI AWV G0438 10/16/10discuss/bill ACP HPI Details SWV ? 83 year old presents for her ? Annual Wellness Visit, subsequent visit. She is up-to-date with her screening mammogram done 07/03/2023 with normal findings, had a bone density scan done at the same time which showed normal bone density in her left femur and lumbar spine, with osteopenia in her left femoral neck. Last colonoscopy was done 10/13/[address] Correia, with no further testing indicated peer she is up-to-date with her flu shot, pneumococcal vaccination, and tetanus booster but declines getting shingles vaccine or COVID vaccine booster. She had a normal fasting lipid panel and diabetes mellitus screening done 08/05/2023. ? Medical / Social History Reviewed? Past Medical History ?Yes . ? [place] of Care / Care Team list updated ?Yes . ? Surgical/Hospitalization History ?Yes . ? Current Medications (including OTC and supplements) ?Yes . ? Family History ?Yes . ? Tobacco Control form ?Yes . ? AUDIT-C (Alcohol use) form ?Yes . ? Illicit drug use in Social History ?Yes . ? Current diagnosis of depression? ?No ? Appropriate PHQ2/PHQ9 completed ?Yes . ? Data entered by ?Writing Manager and reviewed by provider ? Fall Risk ? Fall History? Have you had any falls with injury in the past year? ?No . ? Have you had two or more falls in the past year? ?No . ? Fall Risk Assessment: ?No falls in the past year . ? HRA filled out by the patient, reviewed by Provider and scanned. ? IPPE/AWV ? Balance? [place] ?Yes . ? Tandem walk ?Yes . ? Walk and Turn ?Yes . ? Rise from sit to stand ?Yes . ?Vision? Corrective lens ?none ? Vision screen ? Up-to-date, sees Dr. Hanna ?Hearing? Whisper test ?- fail . ?Written Plan?Completed. See Patient Documents.? HPI Comments History of Present Illness Details 83-year-old lady also here today for follow-up after recent ER visit complaining of dysuria and frequency for 1 week, has not been eating, felt very nervous . Noted to have leukocytosis with a white blood cell count of 15, but urine did not show any infection only presence of microscopic hematuria seen. Antibiotics were not given, patient told to follow-up with PCP, thus this visit. No abdominal pain or back pain , no nausea, no fever. Still having urinary frequency and urgency specially at night. 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 Mother No problems noted. Maternal Aunt No problems noted. Maternal Uncle No problems noted. Social History Housing: House Are you a primary emergency care tech to a significant other at home: No Do you presently have visiting nurse or other home services: No Alcohol intake: current Alcohol intake frequency: holidays/special occasions only Alcohol type: beer and wine Patient Tobacco Use Status: Never used Tobacco e-Cigarette/Vaping Use: Never Used Current occupational status: retired Cognitive needs: No Hearing needs: No Vision needs: Yes Questionnaire Medicare Wellness Checkup What is your age?: 80 or older What gender do you identify with?: female During the past 4 weeks, how much have you been bothered by emotional problems such as feeling anxious, depressed, irritable, sad or downhearted, and blue?: not at all During the past 4 weeks, has your physical & emotional health limited your social activities with family, friends, neighbors, or groups?: not at all During the past 4 weeks, how much bodily pain have you generally had?: very mild pain During the past 4 weeks, was someone available to help you if you needed & wanted help?: yes, as much as I wanted During the past 4 weeks, what was the hardest physical activity you could do for at least 2 minutes?: very heavy Can you get to places out of walking distance without help? (For eg., can you travel alone on buses, taxis or drive your car?): Yes Can you go shopping for groceries or clothes without someone's help?: Yes Can you prepare your own meals?: Yes Can you do your housework without help?: Yes Because of any health problems, do you need the help of another person with your personal care needs such as eating, bathing, dressing or getting around the house?: No Can you handle your own money without help?: Yes During the past 4 weeks, how would you rate your health in general?: very good During the past 4 weeks how have things been going for you?: pretty well Are you having difficulties driving your car?: no Do you always fasten your seat belt when you are in a car?: yes, usually During past 4 weeks, have you been bothered by the following: never: Falling or dizzy when standing up, Sexual problems?, Trouble eating well?, Teeth or denture problems?, Problems using the telephone? and Tiredness or fatigue? Have you fallen 2 or more times in the past year?: No Are you afraid of falling?: No Are you a smoker?: no During the past 4 weeks, how many drinks of wine, beer, or other alcoholic beverages did you have?: no alcohol at all Do you exercise for about 20 minutes 3 or more times a week?: yes, most of the time Have you been given information to help with the following?: yes: Hazards in your house that might hurt you? and yes: Keeping track of your medications? How often do you have trouble taking medicines the way you have been told to take them?: I do not have to take medicine How confident are you that you can control & manage most of your health problems?: very confident What is your race?: White Mini Mental State Exam (MMSE) Orientation What is the (year) (season) (date) (day) (month)?: year (2022), season (Fall), date (09/11/2023), day () and month (September) Where are we (state) (county) (town or city) (hospital) (floor)?: state ([place]), county ([place]), town or city ([place]) and hospital/clinic ([facility]) Score Score: 9 Activity of Daily Living Bathing - sponge bath, tub bath or shower: receives no assistance (gets in/out by self, if usual bathing means Dressing - getting clothes from closets & drawers, including inner/outer garments & fasteners.: gets clothes & gets completely dressed without help Toileting - going to the 'toilet room' for urine/bowel elimination & cleaning self/arranging clothes: goes to toilet room, cleans self, arranges clothes without help Transfer: moves in & out of bed and chair without help (may use support object) Continence: has occasional 'accidents' Feeding: feeds self without help Total Score: 0 Information obtained from: patient Using telephone: independent Traveling: independent Shopping: independent Preparing meals: independent Housework: independent Taking medicine: independent Managing money: independent PHQ-9 Over the last 2 weeks, how often have you been bothered by any of the following problems? 1. Little interest or pleasure in doing things: not at all 2. Feeling down, depressed, or hopeless: not at all 3. Trouble falling or staying asleep, or sleeping too much: not at all 4. Feeling tired or having little energy: not at all 5. Poor appetite or overeating: not at all 6. Feeling bad about yourself - or that you are a failure or have let yourself or your family down: not at all 7. Trouble concentrating on things, such as reading the newspaper or watching television: not at all 8. Moving or speaking so slowly that other people could have noticed. Or the opposite - being so fidgety or restless that you have been moving around a lot more than usual: not at all 9. Thoughts that you would be better off or of hurting yourself in some way: not at all Total score: 0 Depression Screening Interpretation: Negative Depression Screening Done: Yes 91870 - PHQ-9 Billing: Yes Source: Developed by Drs. Kenneth Chu, Claudia Rausch, Mat Crowder and colleagues, with an educational manuj from [employer]. Review of Systems Const Reports as per HPI and Denies fever(s) ENT Reports as per HPI Card Reports no additional complaints Resp Reports no additional complaints GI Reports no additional complaints Reports no additional complaints and Reports as per HPI Physical Exam Vital Signs: Last Vital Signs Pulse 98 09/11/23 09:45 BP 132/76 09/11/23 09:45 Pulse Ox 97 09/11/23 09:45 Oxygen Delivery Method Room Air 09/11/23 09:45 BMI result Body Mass Index 24.9 Const Other: Alert oriented x3, no acute distress noted ambulatory with normal gait, is noted to be very anxious during the visit HEENT Mouth: Normal oral and palatal mucosa present, oropharynx normal and moist mucous membranes Neck Other: Supple with no lymphadenopathy Resp Auscultation: clear to auscultation bilaterally Cardio Other: S1-S2 present regular rate and rhythm Jugular venous distension: no JVD Rate: regular rate Rhythm: regular rhythm Heart sounds: S1 normal heart sound present and S2 normal heart sound present GI Other: Normal bowel sounds, soft, nontender with no mass palpated Inspection: Yes normal to inspection Palpation (GI): Soft to palpation, nontender and No hepatosplenomegaly present Auscultation: normal bowel sounds General: Yes no CVA tenderness Back/Spine/Pelvis Back: no CVA tenderness Results AMB Urinalysis, Automated UA Leukoctes 15 Johanna/uL Last Edit by Meera Hicks CMA on 09/11/23 10:36 UA Nitrite Negative Last Edit by Meera Hicks CMA on 09/11/23 10:36 UA Urobilinogen 0.2 mg/dL Last Edit by Meera Hicks CMA on 09/11/23 10:36 UA Protein 30 mg/dL Last Edit by Meera Hicks CMA on 09/11/23 10:36 UA pH 6.0 Last Edit by Meera Hicks CMA on 09/11/23 10:36 UA Blood 200 Jose/uL Last Edit by Meera Hicks CMA on 09/11/23 10:36 UA Specific [place] 1.015 Last Edit by Meera Hicks CMA on 09/11/23 10:36 UA Ketone Negative Last Edit by Meera Hicks CMA on 09/11/23 10:36 UA Bilirubin 0 mg/dL Last Edit by Meera Hicks CMA on 09/11/23 10:36 UA Glucose 0 mg/dL Last Edit by Meera Hicks CMA on 09/11/23 10:36 Results Reviewed Results Reviewed: Laboratory Last Values Urine pH (Auto) 6.0 09/11/23 10:31 Specific [place] (Auto) 1.015 09/11/23 10:31 Urine Protein (Auto) 30 mg/dL 09/11/23 10:31 Glucose (UA)(Auto) 0 mg/dL 09/11/23 10:31 Urine Ketones (Auto) Negative 09/11/23 10:31 Urine Blood (Auto) 200 Jose/uL 09/11/23 10:31 Urine Nitrite (Auto) Negative 09/11/23 10:31 Urine Bilirubin (Auto) 0 mg/dL 09/11/23 10:31 Urine Urobilinogen (Auto) 0.2 mg/dL 09/11/23 10:31 Leukocyte Esterase (Auto) 15 Johanna/uL 09/11/23 10:31 Name: Juliet Reyna Age/Sex: 83/F : 1940 Unit#: [id number] Attend Dr: Lobo Thorne MD Re09/08/23 Status: [facility] Location: [facility] Disch: SPEC : [id number] SANJAY: 09/08/23 STATUS: COMP REQ : [id number] RECD: 09/08/[address]: Lobo Thorne MD COMP: 09/08/23 ENTERED: 09/08/[address]: ORDERED: BMP Test Result Flag Reference Site Sodium 136 135-145 mmol/L Potassium 4.1 3.3-5.1 mmol/L CL 103 96-108 mmol/L CO2 24 22-29 mmol/L Gap 13 12-20 BUN 12 9-16 mg/dL Creat 0.75 0.5-1.4 mg/dL Estimated CrCl 52.2 Provided height and weight: 168.91 cm, 68.2 kg. eGFR (calculated from the MDRD study equation) and eCrCl (calculated from the Cockcroft-Gault equation) are based on different parameters and may not yield comparable results. If eCrCl result is absurd, please check patient's height/weight. EGFR > 60 NOTE: For -Chinese individuals, multiply the result by 1.210. Chronic Kidney Disease: Estimated GFR < 60 mL/min/1.73m2 Severe Kidney Disease: Estimated GFR < 15 mL/min/1.73m2 Glucose, Random 119 H 60-115 mg/dL CA 8.6 8.4-10.2 mg/dL Laboratory Tests 08/05/23 08:15 Fasting Glucose 92 AST 14 ALT 10 Triglycerides 92 Cholesterol 228 H LDL Cholesterol, Calc 149 H HDL Cholesterol 61 25-OH Vitamin D Total 63.2 Assessment & Plan Assessment & Plan (1) Encounter for subsequent annual wellness visit (AWV) in Medicare patient: Code(s): Z00.00 - Encounter for general adult medical examination without abnormal findings Plan: Medical wellness checklist reviewed, discussed with patient and updated. Copy given.up-to-date with her her vaccinations, declines shingles vaccine peer (2) Urine frequency: Code(s): R35.0 - Frequency of micturition Plan: Empirically started on levofloxacin 250 mg per tablet taken 1 tablet twice a day, advised to stay well-hydrated (3) Microscopic hematuria: Code(s): R31.29 - Other microscopic hematuria Plan: Urine analysis sent for culture and sensitivity, urine also sent for cytology (4) Dyslipidemia: Code(s): E78.5 - Hyperlipidemia, unspecified Plan: Reviewed recent fasting lipid panel with which showed normal findings (5) Osteopenia of left femoral neck: Code(s): M85.852 - Other specified disorders of bone density and structure, left thigh Plan: Continue with regular weight-bearing exercise, and continue with vitamin-D 3 supplements and taking adequate calcium from dietary sources. (6) Advanced directives, counseling/discussion: Code(s): Z71.89 - Other specified counseling Plan: Initiated the conversation about Advanced Directives. Advanced Directives help patients prepare for current and future decisions about their medical treatment and place of care. Discussed with patient that it is a process where a patients current condition and prognosis are reviewed, their wishes for information regarding their illness are elicited, and likely medical dilemmas are presented and options discussed. MOLST and healthcare proxy form completed today. These forms can be amended as needed, reviewed yearly and make changes as needed Orders: Orders UA CC w/rflx Micro + Cult Today R31.29 - Other microscopic hematuria, R35.0 - Frequency of micturition Urine Cytology Today R31.29 - Other microscopic hematuria, R35.0 - Frequency of micturition AMB Urinalysis Automated Today R10.9 - Unspecified abdominal pain Medications: New levofloxacin 250 mg PO Q24H 3 days 3 tabs 0RF Quality Reporting (2019) Depression/Bipolar (159/160/161/177) PHQ-9: Total score: 0 Coding Level of Care Code Medicare Subsequent (G0439) Est Pt Level 3 (80115) Diagnoses Encounter for subsequent annual wellness visit (AWV) in Medicare patient Z00.00 Urine frequency R35.0 Microscopic hematuria R31.29 Dyslipidemia E78.5 Osteopenia of left femoral neck M85.852 Advanced directives, counseling/discussion Z71.89 CPT Codes Advance Care Planning - Time spent: 16-45 minutes ([id number]) Advance Care Planning Advance Care Planning discussion: Completed/Scanned Date of discussion: 09/11/23 Who was present: Patient Forms completed: Health Care Proxy Time spent: 16-45 minutes Actual minutes spent: 16
[2023-09-11 09:45] VITALS: BP 132/76; PULSE 98; O2SAT 97; BMI 24.9
== END 2023-09-11 11:25 | disposition home or self-care (01) ==
PROVIDERS: PCP Internal Medicine; Visit Provider Internal Medicine
DX: Z00.00 Encounter for general adult medical examination without abnormal findings (principal); R35.0 Frequency of micturition; R31.29 Other microscopic hematuria; E78.5 Hyperlipidemia, unspecified; M85.852 Other specified disorders of bone density and structure, left thigh; Z71.89 Other specified counseling; R10.9 Unspecified abdominal pain
CPT/HCPCS: 81003; 99213; 99497; G0439

== ENCOUNTER 2023-09-11 13:29 | Outpatient (REF) | payer MEDICARE, SELFPAY ==
[2023-09-11 13:31] LABS: Urine Cytology See Pathology rpt
[2023-09-11 13:35] LABS: Appearance Urine Clear; Color Urine Dark Yellow; Glucose Urine UA Negative (Negative); Leukocyte Esterase Urine Small (1+) (Negative); Nitrite Urine Negative (Negative); Specific Gravity - Urine 1.015 (1.005-1.025); UMIC TRIGGER UACC YES; Urine Blood Moderate (2+) (Negative); Urine Ketones Negative (Negative); Urine Protein 30 (1+) mg/dL (Neg-Trace)
[2023-09-11 13:37] LABS: Bacteria Urine None Seen (None Seen); Hyaline Casts Urine 0-2 /LPF (0-2); RBC Urine >20 /HPF (0-2); Squamous Epithelial Cell Urine 0-2 /HPF (0-2); UACC Culture Trigger YES
== END 2023-09-11 13:30 | disposition home or self-care (01) ==
LOC: HO.HMGCLNP 13:29
PROVIDERS: Visit Provider Internal Medicine
DX: R35.0 Frequency of micturition (principal); R31.29 Other microscopic hematuria
CPT/HCPCS: 81001; 87086; 88112

== ENCOUNTER 2023-11-07 09:00 | Outpatient (AMB) | payer MEDICARE, SELFPAY ==
--- NOTE | 2023-11-07 09:59 | A.OFFVIS_ITS ---
Intake Intake Visit Reasons: dysuria Intake Note: NEW Patient presents today to established treatment for Dysuria: Meds- None Allergies to Antibiotic- Nitrofurantion Blood Thinner- None Post Void Residual: 143 mL Patient Symptoms: None Athletic Scout Required: No Accompanied by: Self / Same As Patient Allergies nitrofurantoin Adverse Reaction (Severe, Verified 11/07/23 10:00) Diarrhea atorvastatin Adverse Reaction (Intermediate, Verified 11/07/23 10:00) muslce pain simvastatin Adverse Reaction (Intermediate, Verified 11/07/23 10:00) muscle pain Medication List - Last Reconciled 11/07/23 by Mackenzie Turk MD cholecalciferol (vitamin D3) 50 mcg PO DAILY HPI HPI Comments History of Present Illness Details Juliet is an 83 year old female who is here for evaluation due to dysuria. The patient states she had an acute episode of increased urinary frequency and pain with urination so went the ED on 09/08/2023. A urine culture was sent which came back less than 10,000 colonies. She followed up with her PCP and was placed on Bactrim and Pyridium which she stated helped her symptoms. Past Medical history -history of breast cancer, previous bladder suspension. The patient states she does have urinary leakage associated with urgency. She states that she has had about 2 UTIs that she can remember in her life time. Examination: Pelvic exam small urethral prolapse 14 Macedonian catheter-PVR 125 mL I have discussed workup to include evaluation of the upper tracts and FUfor cystoscopy evaluation. UA: Positive leukocytes, nitrate positive Plan: Urine for cytology. Urine culture. The patient's denies UTI symptoms today. We will wait for results before antibiotic treatment. 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 Mother No problems noted. Maternal Aunt No problems noted. Maternal Uncle No problems noted. Social History Housing: House Are you a primary landcare facilitator to a significant other at home: No Do you presently have visiting nurse or other home services: No Alcohol intake: current Alcohol intake frequency: holidays/special occasions only Alcohol type: beer and wine Patient Tobacco Use Status: Never used Tobacco e-Cigarette/Vaping Use: Never Used Current occupational status: retired Cognitive needs: No Hearing needs: No Vision needs: Yes Review of Systems Const All systems reviewed & are unremarkable except as noted in HPI and below Reports no additional complaints Eyes Reports no additional complaints ENT Reports no additional complaints Card Denies dyspnea Resp Denies cough and Denies dyspnea GI Reports no additional complaints Reports no additional complaints Musc Reports no additional complaints Skin/Breast Denies rash and Denies unusual bruising Neuro Reports no additional complaints Psych Reports no additional complaints Endo Reports no additional complaints Alexandre/Lymph Reports no additional complaints Aller/Immun Reports no additional complaints Physical Exam Const General: cooperative, healthy appearing and no acute distress Orientation/consciousness: patient oriented x3 HEENT Head: Yes normal to inspection, Yes normocephalic and Yes atraumatic Eyes Conjunctivae: conjunctivae normal Neck Neck: Yes normal visual inspection and Yes trachea midline Chest Chest palpation & inspection: normal inspection of the chest Resp Effort & Inspection: normal respiratory effort Cardio Rate: regular rate GI Inspection: Yes normal to inspection Palpation (GI): Soft to palpation General: No no CVA tenderness External Female Exam: normal external appearance Speculum Exam - Vagina: vagina atrophic Back/Spine/Pelvis Back: No no CVA tenderness Skin General skin exam: no rashes or lesions noted Neuro General: patient oriented x3 Extrem General: No edema Psych Appearance: grossly normal Office Procedures Bladder/Catheter Procedure Details: Under sterile technique a 14 Macedonian catheter was passed transurethrally, 125 mL urine drained [id number] Bladder Catheter Procedure code (CPT) selection complete Post Void Residual Post Residual Void Post Void Residual (PVR): 143 [id number] Void Residual by ultrasound Results AMB Urinalysis, Automated UA Leukoctes 500 Johanna/uL Last Edit by CHRISTIANO Browne on 11/07/23 09:58 3+ Niurka Solo 11/07/23 09:58 UA Nitrite Negative Last Edit by CHRISTIANO Browne on 11/07/23 09:58 UA Urobilinogen 0.2 mg/dL Last Edit by CHRISTIANO Browne on 11/07/23 09:5 8 UA Protein 30 mg/dL Last Edit by CHRISTIANO Browne on 11/07/23 09:58 1+ Niurka Solo 11/07/23 09:58 UA pH 6.0 Last Edit by CHRISTIANO Browne on 11/07/23 09:58 UA Blood 200 Jose/uL Last Edit by CHRISTIANO Browne on 11/07/23 09:58 3+ Niurka Solo 11/07/23 09:58 UA Specific [place] 1.020 Last Edit by CHRISTIANO Browne on 11/07/23 09: 58 UA Ketone Negative Last Edit by CHRISTIANO Browne on 11/07/23 09:58 UA Bilirubin 0 mg/dL Last Edit by CHRISTIANO Browne on 11/07/23 09:58 UA Glucose 0 mg/dL Last Edit by CHRISTIANO Browne on 11/07/23 09:58 Results Reviewed Results Reviewed: Laboratory Last Values Urine pH (Auto) 6.0 11/07/23 09:57 Specific [place] (Auto) 1.020 11/07/23 09:57 Urine Protein (Auto) 30 mg/dL 11/07/23 09:57 Glucose (UA)(Auto) 0 mg/dL 11/07/23 09:57 Urine Ketones (Auto) Negative 11/07/23 09:57 Urine Blood (Auto) 200 Jose/uL 11/07/23 09:57 Urine Nitrite (Auto) Negative 11/07/23 09:57 Urine Bilirubin (Auto) 0 mg/dL 11/07/23 09:57 Urine Urobilinogen (Auto) 0.2 mg/dL 11/07/23 09:57 Leukocyte Esterase (Auto) 500 Johanna/uL 11/07/23 09:57 Assessment & Plan Assessment & Plan (1) Dysuria: Code(s): R30.0 - Dysuria (2) Urethral prolapse: Code(s): N36.8 - Other specified disorders of urethra (3) Urge incontinence of urine: Code(s): N39.41 - Urge incontinence Plan Urine for cytology. Urine culture. The patient's denies UTI symptoms today. We will wait for results before antibiotic treatment. Renal ultrasound follow-up office cystoscopy Orders: Orders AMB Bladder/Catheter Procedure Today R30.0 - Dysuria AMB Post Void Residual by ultrasound Today N39.8 - Other specified disorders of urinary system AMB Urinalysis Automated Today Z13.9 - Encounter for screening, unspecified Urine Culture Today N39.0 - Urinary tract infection, site not specified Urine Cytology Today R31.9 - Hematuria, unspecified Patient Instructions: The patient had an opportunity to ask questions regarding treatment plan. All questions were answered. Laboratory studies and physical exam results were discussed and reviewed in detail. No major barriers to understanding were identified. The patient expressed understanding and agreement with the above treatment plan. The patient is aware they should contact our office by phone for worsening of their current condition or the appearance of new symptoms. Compliance is encouraged with any medications and followup testing that is ordered. It is a privilege to be allowed the opportunity to participate in the urologic care of your patient. If you have any questions or concerns regarding treatment for the above conditions please do not hesitate to contact me. The office telephone contact is [phone]. This note is constructed in part using voice recognition software. While every effort has been made to ensure accuracy marketing support specialist errors may have been included. Yours sincerely, Mackenzie Turk MD Coding Level of Care Code New Pt Level 4 (19137) Diagnoses Dysuria R30.0 Urethral prolapse N36.8 Urge incontinence of urine N39.41 CPT Codes Bladder/Catheter Procedure - CPT: 25193-Wbrrpr Bladder Catheter ([id number]) Post Residual Void - PVR CPT Code: 90833-Cskc Void Residual by ultrasound ([id number])
== END 2023-11-07 10:29 | disposition home or self-care (01) ==
PROVIDERS: PCP Internal Medicine; Visit Provider Urology
DX: R30.0 Dysuria (principal); N36.8 Other specified disorders of urethra; N39.41 Urge incontinence; Z13.9 Encounter for screening, unspecified
CPT/HCPCS: 51701; 99204

== ENCOUNTER 2023-11-07 09:00 | Outpatient (REF) | payer MEDICARE, SELFPAY ==
[2023-11-07 16:30] LABS: Urine Cytology See Pathology rpt
== END 2023-11-07 09:01 | disposition home or self-care (01) ==
LOC: HO.LAB 09:00
PROVIDERS: PCP Internal Medicine; Visit Provider Urology
DX: R30.0 Dysuria (principal); R31.9 Hematuria, unspecified; N39.0 Urinary tract infection, site not specified; N36.8 Other specified disorders of urethra; N39.41 Urge incontinence
CPT/HCPCS: 51701; 51798; 81003; 87086; 87088; 87186; 88112; 99202

== ENCOUNTER 2023-12-05 09:13 | Outpatient (REF) | payer MEDICARE, SELFPAY ==
--- NOTE | ~2023-12-05 | US_ITS ---
EXAMINATION: US RETROPERITONEAL LIMITED (RENAL ONLY) CLINICAL INFORMATION: Urge incontinence, hematuria. COMPARISON: None available. TECHNIQUE: Real-time imaging of the kidneys. FINDINGS: RIGHT KIDNEY: 9.7 x 5.9 x 4.6 cm (SAG x AP x TRV). The kidney is normal in size, contour, and echogenicity. Renal cortical thickness is normal. No renal calculi. Mild caliectasis without rupinder hydronephrosis. 1.3 x 1.4 x 1.1 cm simple lower pole cyst is seen. No imaging follow-up is recommended. LEFT KIDNEY: 10.8 x 5.0 x 4.3 cm (SAG x AP x TRV). The kidney is normal in size, contour, and echogenicity. Renal cortical thickness is normal. No renal calculi. Mild caliectasis without rupinder hydronephrosis. There are multiple cysts, the largest is a 1.2 x 1.3 x 1.5 cm simple cyst in the lower pole. No imaging follow-up is recommended. US/US renal BI IMPRESSION: Mild bilateral mild caliectasis without rupinder hydronephrosis. No renal calculi.
== END 2023-12-05 09:14 | disposition home or self-care (01) ==
LOC: HO.US 09:13
PROVIDERS: PCP Internal Medicine; Visit Provider Urology
DX: Z13.89 Encounter for screening for other disorder (principal)
CPT/HCPCS: 76775

== ENCOUNTER 2023-12-08 16:25 | Inpatient (IN) | payer MEDICARE, SELFPAY ==
--- NOTE | ~2023-12-08 | MR_ITS ---
EXAMINATION: MR BRAIN WITHOUT CONTRAST CLINICAL INFORMATION: Left frontal stroke with edema COMPARISON: Same-day CT head and CT angiogram of head and neck TECHNIQUE: MRI of the brain was obtained using routine sequences without contrast. FINDINGS: There are multifocal areas of restricted diffusion including the left insula, left frontal operculum, and left frontal nogueira radiata/centrum semiovale with cortical restricted diffusion along the lateral left frontal lobe. Susceptibility weighted sequence is within normal limits. No mass effect, extra-axial collection, midline shift, or other herniation. Generalized cerebral volume loss with associated ventricular and sulcal prominence. Additional periventricular and subcortical T2/FLAIR hyperintense foci are nonspecific but likely represent chronic microvascular ischemic change. Intracranial flow voids are preserved. Mucosal thickening in the ethmoid air cells with complete opacification of the left frontal sinus. The mastoid air cells are well-aerated. Bilateral intraocular lens replacements. No focal expansile/destructive osseous lesion. MR/MR head/brain wo con IMPRESSION: Multifocal small areas of acute infarction throughout the left frontal lobe and left insula with cortical restricted diffusion corresponding to the hypodensity on prior CT.
--- NOTE | ~2023-12-08 | CT_ITS ---
EXAMINATION: CT angio head neck stroke CLINICAL INFORMATION: Aphasia. COMPARISON: CT head 12/08/2023. TECHNIQUE: Full Time Paramedic images were obtained. A CT angiogram of the head and neck was performed in the arterial phase after the intravenous administration of 70 mL Omnipaque 350. Pre and delayed postcontrast images of the head were also obtained. 3D images were processed on an independent workstation under concurrent supervision. Arterial stenoses are measured in accordance with NASCET criteria or similar method if applicable. This CT examination was performed using dose optimization techniques as appropriate, including one or more of the following: Automated exposure control, iterative reconstruction, and adjustment of technique factors (mA and/or kVp) according to patient size (this includes techniques or standardized protocols for targeted exams where dose is matched to indication/reason for exam). Fleischner Society criteria for the followup of incidental pulmonary nodules was implemented if appropriate. Total exam dose-length product 1500 mGy-cm FINDINGS: Head: There is subtle loss of reese-white matter differentiation within the left precentral sulcus near the vertex best visualized on axial image 26 of 84 series 16. Otherwise no pathological enhancement on postcontrast images. No intracranial mass effect or midline shift. No hydrocephalus. The calvarium and skull base are grossly intact. No mastoid or middle ear effusion. The left frontal sinus is completely opacified. Globes and orbits are grossly symmetric. CT angiogram neck: Scattered atheromatous calcification involves the aortic arch apex. Origins of major aortic branches are widely patent. Common carotid arteries are normal. Partially calcified atheromatous plaque involves both carotid bifurcations. No stenosis of the extracranial internal carotid arteries. The cervical segments of the vertebral arteries are patent. CT angiogram head: Intracranial internal carotid arteries are patent. Intradural vertebral artery segments and basilar artery are patent. Anterior, middle, and posterior cerebral artery complexes are normal. No intracranial large vessel occlusion. No identifiable aneurysm or high flow vascular lesion. Other: There is a hyperenhancing nodule within the right lobe of the thyroid gland best visualized on axial image 92 of 116 series 5 measuring up to 1.2 cm in maximal transaxial dimension. A few smaller thyroid nodules visualized within both lobes of the thyroid gland. Grossly no pathologically enlarged cervical lymph nodes. No mediastinal or axillary adenopathy is visualized within the [id number] of this examination. CT/CT angio head neck stroke IMPRESSION: There is subtle loss of reese-white matter differentiation within the left precentral sulcus near the vertex. This finding may represent a small acute cortical infarct or possibly a tiny contusion if there is a clinical history of acute trauma. A dedicated brain MRI is recommended for better anatomic characterization of these findings. Otherwise no pathological enhancement on postcontrast images. No stenosis of the cervical carotid or vertebral arteries. No intracranial large vessel occlusion. This critical result was discussed with Dr Thorne at 5:09 PM on 12/08/2023 and it was ascertained that the content and urgency of the report was understood at the time of direct communication.
--- NOTE | ~2023-12-08 | CT_ITS ---
EXAMINATION: CT HEAD WITHOUT CONTRAST CLINICAL INFORMATION: AMS. COMPARISON: MRI brain 12/08/2023 TECHNIQUE: Contiguous axial imaging was performed from the skull base to vertex without intravenous administration of contrast. This CT examination was performed using dose optimization techniques as appropriate, variously including the following: *Automated exposure control *Adjustment of mA and/or kV according to patient size (this includes techniques or standardized protocols for targeted exams where dose is matched to indication/reason for exam; i.e. extremities or head) *Use of iterative reconstruction technique DLP: 753 mGy-cm FINDINGS: There is no acute intra-axial, extra-axial bleed, masses or midline shift. No acute infarction evolution. There is no edema. MRI visualized small bowel infarcts are not seen on the CT. The lateral ventricles are symmetrical in size and configuration without enlargement. The reese to white matter differentiation is maintained normal. Bone windows reveal no calvarial abnormality. Bilateral paranasal sinuses and mastoid air cells are well-aerated. No scalp soft tissue abnormality. CT/CT head/brain wo IV con IMPRESSION: No acute process. Small areas of acute infarction in left frontal lobe on MRI performed earlier today is not visualized by CT.
--- NOTE | ~2023-12-08 | CT_ITS ---
EXAMINATION: CT HEAD WITHOUT CONTRAST (STROKE PROTOCOL) CLINICAL INFORMATION: Stroke protocol. COMPARISON: None. TECHNIQUE: Contiguous axial imaging was performed from the skull base to vertex without intravenous administration of contrast. Coronal and sagittal reformatted images are performed at the CT scanner. [This CT examination was performed using dose optimization techniques as appropriate, variously including the following: *Automated exposure control *Adjustment of mA and/or kV according to patient size (this includes techniques or standardized protocols for targeted exams where dose is matched to indication/reason for exam; i.e. extremities or head) *Use of iterative reconstruction technique] DLP: 780 mGy-cm. FINDINGS: There is no evidence of acute intracranial hemorrhage or territorial infarction. No abnormal mass-effect or midline shift is seen. Luther to white matter differentiation is well preserved. No extra-axial fluid collections are identified. There is generalized global volume loss. There is mild prominence of the ventricles and the sulci . There is mild hypodensity of the periventricular white matter due to chronic small vessel ischemic disease. There are vascular calcifications of the internal carotid arteries bilaterally. There is no osseous abnormality. Left frontal sinus is opacified. This is most consistent with sinus disease. No evidence of skull fracture. No overlying scalp hematoma. CT/CT head for stroke IMPRESSION: No acute intracranial pathology. This critical result was discussed with Dr. Thorne at 1650 hours on 12/08/2023. It was ascertained that the content and urgency of the report was understood at the time of direct communication.
--- NOTE | 2023-12-08 16:30 | ECG_ITS ---
Test Reason : STROKE Blood Pressure : / mmHG Vent. Rate : 081 BPM Atrial Rate : 000 BPM P-R Int : 000 ms QRS Dur : 084 ms QT Int : 382 ms P-R-T Axes : 000 036 031 degrees QTc Int : 443 ms Atrial fibrillation Abnormal ECG When compared with ECG of 12-FEB-2019 20:25, Atrial fibrillation has replaced Sinus rhythm Referred By: Lobo Thorne Electronically Signed By:Pancho Esquivel
--- NOTE | 2023-12-08 16:30 | ED.AMS ---
HPI - Altered Mental Status General Chief Complaint: Stroke Stated Complaint: CONFUSION,FALL X1DAY +HEADSTRIKE,PIN POINT PUPILS Time Seen by Provider: 12/08/23 16:26 Source: patient and EMS Mode of arrival: EMS Limitations: other (aphasia) History of Present Illness HPI narrative: According to patient, her friend Deb called her and when she did not seem right Deb called the ambulance. Patient states she fell yesterday hurting her left eyebrow. She is having difficulty with speech. The symptoms may have started 1 hour 20 minutes ago MD complaint: confusion Onset (ago): hour(s) Severity: mild Consistency of symptoms: waxing and waning Related Data Home Medications Medication Instructions Recorded Confirmed cholecalciferol (vitamin D3) 50 50 mcg PO DAILY 07/13/20 11/07/23 mcg (2,000 unit) tablet Previous Rx's Medication Instructions Recorded sulfamethoxazole 800 1 tab PO BID 7 days #14 tabs 11/10/23 mg-trimethoprim 160 mg tablet (Bactrim DS) Allergies Allergy/AdvReac Type Severity Reaction Status Date / Time nitrofurantoin AdvReac Severe Diarrhea Verified 11/07/23 10:00 atorvastatin AdvReac Intermediate muslce pain Verified 11/07/23 10:00 simvastatin AdvReac Intermediate muscle pain Verified 11/07/23 10:00 Review of Systems Review of Systems: Yes Unobtainable due to mental status and Other (aphasia) Neurologic: Denies Sensory deficit (Neuro) 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 Mother No problems noted. Maternal Aunt No problems noted. Maternal Uncle No problems noted. Social History Social History Housing: House Are you a primary child day care provider to a significant other at home: No Do you presently have visiting nurse or other home services: No Alcohol intake: current Alcohol intake frequency: does not drink Alcohol type: beer and wine Patient Tobacco Use Status: Never used Tobacco Smoked in Last 30 Days: No e-Cigarette/Vaping Use: Never Used Use of substances other than those prescribed or required for medical reasons: No Advance Directives: No Advance Directives Information Provided: No Current occupational status: retired Cognitive needs: No Hearing needs: No Vision needs: Yes Physical Exam ED Vital Signs: Vital Signs - 24 hr 12/08/23 17:28 Temperature 98.6 F Pulse Rate 87 Respiratory Rate 18 Blood Pressure 177/94 H Pulse Oximetry 97 Oxygen Delivery Method Room Air BMI result Body Mass Index 26.0 Const Other: anixous Nutritional Appearance: average body habitus Orientation/consciousness: oriented to person and patient oriented x3 Limitations: no limitations HENMT Head: Yes normal to inspection Ears: external ears normal General nose exam: Normal external nose present Mouth: Normal oral and palatal mucosa present and oropharynx normal Throat: Yes posterior oropharynx normal Eyes General: appearance normal, both eyes and all related structures Neck Neck: Yes normal visual inspection Chest Chest palpation & inspection: normal inspection of the chest Resp Auscultation: clear to auscultation bilaterally Cardio Jugular venous distension: no JVD Rate: regular rate Rhythm: regular rhythm Heart sounds: S1 normal heart sound present and S2 normal heart sound present GI Inspection: Yes normal to inspection Palpation (GI): Soft to palpation, nontender and No hepatosplenomegaly present Auscultation: normal bowel sounds General: Yes no CVA tenderness Back/Spine/Pelvis Back: no CVA tenderness Skin General skin exam: no rashes or lesions noted Neuro General: oriented to person and patient oriented x3 Cranial nerves: Yes CN's II-XII intact bilaterally Motor exam (neuro): 5/5 motor strength present throughout Sensory Exam: No Sensory deficit (Neuro) Extrem General: Yes normal to inspection Psych Appearance: grossly normal NIH Stroke Scale Internal: Initial- Upon Arrival Level of Consciousness: Alert Level of Consciousness Questions: Answers both questions correctly Level of Consciousness Commands: Performs both tasks correctly Best Gaze: Normal Visual: No visual loss Facial Palsy: Normal Motor Arm (Right): No drift Motor Arm (Left): No drift Motor Leg (Right): No drift Motor Leg (Left): No drift Limb Ataxia: Absent Sensory: Normal Best Language: Mild to moderate aphasia Dysarthia: Normal Extinction and Inattention: No abnormality Score: 1 Course Reevaluation(s) Reevaluation #1: This is a very complicated patient, patient fell yesterday, today she has aphasia of which we do not know the exact onset, Her CT angio shows edema in the left frontal area where she hit her head, however she is in atrial fibrillation. Based on her waxing and wanning speech and edema I would not give her TNK at this time. Discussed with Dr. Lopez who would hold off on TNK at this time Time: 17:28 Reevaluation #2: Discussed in detail with daughter to make sure she understands why we did not give TNK Time: 18:13 Reevaluation #3: I spent 40 minutes of critical care, with interventions, assessments, speaking to patient, consultants, and family. Time: 18:13 Medications Administered Discontinued Medications Generic Name Dose Route Start Last Admin Trade Name Freq PRN Reason Stop Dose Admin Aspirin 325 mg 12/08/23 17:19 12/08/23 17:29 Aspirin Enteric Coated 325 Mg Tablet.Dr PRABHAKAR 12/08/23 17:20 325 mg ONCE ONE Administration Iohexol 100 ml 12/08/23 16:55 12/08/23 16:56 Iohexol 350 Mg/Ml 100 Ml Infus..Btl IV 12/08/23 16:56 65 ml ONCE ONE Administration Medical Decision Making Differential Diagnosis Differential Diagnoses: The differential diagnosis associated with the presentation includes (stroke, cerebral bleed, brain tumor, TIA were all considered) Admission/Observation Consideration of admission/observation: Escalation of care including admission/observation considered (upon arrival patient was considered for admission) Consult Healthcare Provider Management of the patient was discussed with: Hospitalist and Clinical Programmer Lab Data 12/08/23 16:40 12/08/23 16:40 Labs: Lab Results 12/08/23 12/08/23 12/08/23 Range/Units 16:39 16:40 17:00 WBC 5.6 (4.8-10.8) X10*3/uL RBC 4.34 (4.20-5.50) X10*6/uL Hgb 12.2 (12.0-16.0) g/dl Hct 36.5 L (37.0-47.0) % MCV 84.1 (80.0-98.0) fL MCH 28.1 (27.0-33.0) pg MCHC 33.4 (31.0-35.0) g/dl RDW 14.6 (11.0-16.0) % Plt Count 221 D (160-400) X10*3/uL MPV 9.4 (9.4-12.3) fL Immature Gran % (Auto) 0.4 (0.0-0.4) % Neut % (Auto) 67.0 (45-73) % Lymph % (Auto) 22.0 (20-40) % [place] % (Auto) 9.0 (2-11) % Eos % (Auto) 0.9 (0-4) % Baso % (Auto) 0.7 (0-2) % Lymph # (Auto) 1.2 (1.2-4.9) X10*3/uL [place] # (Auto) 0.5 (0.1-1.2) X10*3/uL Eos # (Auto) 0.1 (0.0-0.4) X10*3/uL Baso # (Auto) 0.0 (0.0-0.2) X10*3/uL Abs Immat Gran (auto) 0.02 (0.00-0.03) X10*3/uL Absolute Neuts (auto) 3.8 (2.0-8.3) x10*3/uL Absolute Nucleated RBC 0.000 (0.0-0.012) X10*3/uL Nucleated RBC % (auto) 0.0 (0.0-0.2) /100WBC Hold Purple Top SEE NOTE PT 11.3 (11.1-13.3) SEC Whole Blood PT 14.1 H (11.1-13.5) sec INR 0.9 (0.9-1.1) Whole Blood INR 1.0 (0.9-1.1) APTT 30.6 (26.0-36.8) SEC Sodium 139 (135-145) mmol/L Potassium 3.4 (3.3-5.1) mmol/L Chloride 106 (96-108) mmol/L Carbon Dioxide 26 (22-29) mmol/L Anion Gap 10 L (12-20) BUN 19 H (9-16) mg/dL Creatinine 0.86 (0.5-1.4) mg/dL Estim Creat Clear Calc 49.8 Estimated GFR > 60 POC Glucose 152 H (60-115) mg/dL Random Glucose 183 H (60-115) mg/dL Calcium 9.3 D (8.4-10.2) mg/dL Total Creatine Kinase 80 (26-140) U/L Troponin I High Sens < 2.7 (<3.5-17.0) ng/L Urine Color Urine Appearance Urine pH (5.0-9.0) Ur Specific [place] (1.005-1.025) Urine Protein (Neg-Trace) mg/dL Urine Glucose (UA) (Negative) mg/dL Urine Ketones (Negative) mg/dL Urine Blood (Negative) Urine Nitrite (Negative) Ur Leukocyte Esterase (Negative) Urine RBC (0-2) /HPF Urine WBC (0-5) /HPF Ur Squamous Epith Cells (0-2) /HPF Urine Bacteria (None Seen) Hyaline Casts (0-2) /LPF /01/27 Range/Units 17:35 WBC (4.8-10.8) X10*3/uL RBC (4.20-5.50) X10*6/uL Hgb (12.0-16.0) g/dl Hct (37.0-47.0) % MCV (80.0-98.0) fL MCH (27.0-33.0) pg MCHC (31.0-35.0) g/dl RDW (11.0-16.0) % Plt Count (160-400) X10*3/uL MPV (9.4-12.3) fL Immature Gran % (Auto) (0.0-0.4) % Neut % (Auto) (45-73) % Lymph % (Auto) (20-40) % [place] % (Auto) (2-11) % Eos % (Auto) (0-4) % Baso % (Auto) (0-2) % Lymph # (Auto) (1.2-4.9) X10*3/uL [place] # (Auto) (0.1-1.2) X10*3/uL Eos # (Auto) (0.0-0.4) X10*3/uL Baso # (Auto) (0.0-0.2) X10*3/uL Abs Immat Gran (auto) (0.00-0.03) X10*3/uL Absolute Neuts (auto) (2.0-8.3) x10*3/uL Absolute Nucleated RBC (0.0-0.012) X10*3/uL Nucleated RBC % (auto) (0.0-0.2) /100WBC Hold Purple Top PT (11.1-13.3) SEC Whole Blood PT (11.1-13.5) sec INR (0.9-1.1) Whole Blood INR (0.9-1.1) APTT (26.0-36.8) SEC Sodium (135-145) mmol/L Potassium (3.3-5.1) mmol/L Chloride (96-108) mmol/L Carbon Dioxide (22-29) mmol/L Anion Gap (12-20) BUN (9-16) mg/dL Creatinine (0.5-1.4) mg/dL Estim Creat Clear Calc Estimated GFR POC Glucose (60-115) mg/dL Random Glucose (60-115) mg/dL Calcium (8.4-10.2) mg/dL Total Creatine Kinase (26-140) U/L Troponin I High Sens (<3.5-17.0) ng/L Urine Color Yellow Urine Appearance Clear Urine pH 8.5 (5.0-9.0) Ur Specific [place] 1.010 (1.005-1.025) Urine Protein Negative (Neg-Trace) mg/dL Urine Glucose (UA) Negative (Negative) mg/dL Urine Ketones Negative (Negative) mg/dL Urine Blood Moderate (2+) H (Negative) Urine Nitrite Positive H (Negative) Ur Leukocyte Esterase Moderate (2+) H (Negative) Urine RBC 11-20 H (0-2) /HPF Urine WBC 11-20 H (0-5) /HPF Ur Squamous Epith Cells 0-2 (0-2) /HPF Urine Bacteria 4+ (None Seen) Hyaline Casts 0-2 (0-2) /LPF Independent Interpretation I performed an independent interpretation of an: EKG (atrial fibrillation rate of 80, no st or twave changes) and CT Scan (no bleed or mass) Radiology Impression Discussion of test interpretation with radiology: I have reviewed the radiologist's reading. Independent Historian Clinical information obtained from an independent historian. History obtained from or confirmed by: EMS Tests considered The following testing was considered but not selected: MRI of brain will be performed as inpatient Chronic Conditions Patient?s care impacted by: Hypertension Discharge Plan Discharge Clinical Impression: Aphasia, Stroke, Brain edema Patient Disposition: Admitted As Inpatient
[2023-12-08 16:44] VITALS: BP 154/91; PULSE 105; O2SAT 98; BMI 26.0
[2023-12-08 16:46] LABS: MANUAL DIFF FLAG NO
[2023-12-08 16:47] LABS: Basophils Percent Auto 0.7 % (0-2); Eosinophils Absolute Auto 0.1 X10*3/uL (0.0-0.4); Eosinophils Percent Auto 0.9 % (0-4); Hematocrit 36.5 % (37.0-47.0); Hemoglobin 12.2 g/dl (12.0-16.0); Imm Gran Abs Auto 0.02 X10*3/uL (0.00-0.03); Imm Gran Pct Auto 0.4 % (0.0-0.4); Lymphocytes Absolute Auto 1.2 X10*3/uL (1.2-4.9); Mean Corpuscular HGB Conc 33.4 g/dl (31.0-35.0); Mean Corpuscular Hemoglobin 28.1 pg (27.0-33.0); Mean Corpuscular Volume 84.1 fL (80.0-98.0); Mean Platelet Volume 9.4 fL (9.4-12.3); Monocytes Absolute Auto 0.5 X10*3/uL (0.1-1.2); Neutrophils Absolute Auto 3.8 x10*3/uL (2.0-8.3); Platelet Count 221 X10*3/uL (160-400); Red Blood Count 4.34 X10*6/uL (4.20-5.50); Red Cell Distribution Width 14.6 % (11.0-16.0); White Blood Count 5.6 X10*3/uL (4.8-10.8)
--- NOTE | 2023-12-08 16:47 | PC.NURSE ---
per ems pt having difficulty finding words unsure of lkw ? <1 hour. pt self reported fall yesterday bruising to L. eye/forehead/tender to touch pt unable to state loc. -thinners. on arrival pt axox4 no facial droop/motor deficit noted. pt in ct scan on arrival. 18g L. AC via ems.
[2023-12-08 16:49] LABS: Prothrombin Time Whole Bld POC 14.1 sec (11.1-13.5)
[2023-12-08] MEDS: iohexoL 350 MG/ML 100 ML INFUS..BTL IV (16:56)
[2023-12-08 16:58] LABS: INTERNATIONAL NORM RATIO 0.9 (0.9-1.1); Prothrombin Time 11.3 SEC (11.1-13.3)
[2023-12-08 17:00] LABS: Anion Gap 10 (12-20); Blood Urea Nitrogen 19 mg/dL (9-16); Calcium 9.3 mg/dL (8.4-10.2); Carbon Dioxide 26 mmol/L (22-29); Chloride 106 mmol/L (96-108); Creatinine Clr Calc Pharmacy 49.8; Estimated Glomerular Filt Rate > 60; Glucose Random 183 mg/dL (60-115); Partial Thromboplastin Time 30.6 SEC (26.0-36.8); Potassium 3.4 mmol/L (3.3-5.1); Sodium 139 mmol/L (135-145)
[2023-12-08 17:04] LABS: Glucose, Whole Blood 152 mg/dL (60-115)
[2023-12-08 17:07] LABS: Troponin-I High Sensitivity < 2.7 ng/L (<3.5-17.0)
[2023-12-08 17:09] LABS: Stroke Lab Use COMPLETE
--- NOTE | 2023-12-08 17:14 | PC.NURSE ---
2nd iv obtained R. forearm. sx waxing and waning. pt able to state needs. purewick provided as needed to urinate. pt changed over to hospital gown placed on heart monitor vitals obtained. Dr. Thorne at bedside for neuro assessment neuros intact. responding appropriately to commands/identifying pictures correctly. at times pt slower to respond. PCT at bedside for ekg.
[2023-12-08 17:17] VITALS: BP 134/87
--- NOTE | 2023-12-08 17:21 | PC.NURSE ---
pt now appears to be in afib on monitor and ekg rates ranging 85-95 bpm.
[2023-12-08 17:28] VITALS: BP 177/94; PULSE 87; RESP 18; TEMP 37; O2SAT 97
[2023-12-08] MEDS: Aspirin Enteric Coated 325 MG TABLET.DR PO (17:29)
[2023-12-08 17:41] LABS: Appearance Urine Clear; Color Urine Yellow; Glucose Urine UA Negative (Negative); Leukocyte Esterase Urine Moderate (2+) (Negative); Nitrite Urine Positive (Negative); PH 8.5 (5.0-9.0); UMIC TRIGGER UACC YES; Urine Blood Moderate (2+) (Negative); Urine Ketones Negative (Negative); Urine Protein Negative (Neg-Trace)
[2023-12-08 17:46] LABS: Bacteria Urine 4+ (None Seen); Hyaline Casts Urine 0-2 /LPF (0-2); Squamous Epithelial Cell Urine 0-2 /HPF (0-2); UACC Culture Trigger YES
--- NOTE | 2023-12-08 20:10 | PHA.MEDREC ---
Pharmacy Consult ? Medication Reconciliation Pharmacy has completed the medication reconciliation. Patient reports only taking vit d. Yudi Cordova, BaltazarD
[2023-12-08 20:35] VITALS: BP 128/78; PULSE 80; RESP 16; TEMP 36.7; O2SAT 97
--- NOTE | 2023-12-08 20:36 | PM.IMHP ---
History of Present Illness Date of Service: 12/08/23 Attending physician on admission: Briana Cardenas Chief Complaint: word finding difficulty 83 year old female with history of hyperlipidemia with statin intolerance, urge incontinence, osteopenia, history of breast cancer 1999 s/p lumpectomy and radiation therapy presented to the ED earlier today for evaluation of word finding difficulty with sudden onset at about 3pm this afternoon. She is here today with daughter, Nancy, and son Gurinder, who are at bedside. Apparently the patient had initially reported that she was painting the underside of a vanity yesterday and hit her head on an unguarded fan but not sustain lacerations. However, on my exam she adamently denies injury though does endorse painting the vanity. She has been experiencing intermittent expressive aphasia since arrival to the ED, but has been noted to have normal speech at different intervals. She also states some visual difficulty ongoing since last night. Denies blurred vision or diplopia but states that when reading, the words seem to blend together. No slurred speech, dysphagia, facial droop, gait ataxia, focal weakness or paresthesias. Denies any history of CVA. She states was recently treated for UTI by Dr. Johnson and has upcoming appt with her on . Denies fevers, chills, dysuria, hematuria, increased frequency or urgency. Since arrival, pt has been intermittently hypertensive to 177/94 but normotensive at 128/78 on admission. Vitals otherwise stable. No leukocytosis or anemia. Renal function baseline, lytes normal, glucose 183. Trop below detectable limits, total CK. UA with 2+ leukocytes, +nitrites, 2+ blood, +urinary sediment, 4+ bacteria. Head CT negative for acute intracranial pathology. CTA head/neck shows subtle loss of reese-white matter differentiation within the left precentral sulcus near the vertex possibly representing small acute cortical infarct or possibly a tiny contusion there is a clinical history of acute trauma. No hemodynamically significant stenosis of cervical carotid or vertebral arteries and no large vessel occlusion. MRI brain shows multifocal small areas of acute infarction throughout the left frontal lobe and left insula with cortical restricted diffusion corresponding to the hypodensity on prior CT. In the ED, given 325mg asa. TNK not administered due to uncertain timing of symptom onset, NIH stroke score 1 and waxing and waning of symptoms. Review of Systems Review of Systems: General: No fevers, malaise, unintentional weight loss HEENT: No blurred vision, diplopia. No sore throat, nasal congestion, rhinorrhea, sinus pain, ear pain Cardiovascular: No chest pain, palpitations, or leg edema Respiratory: No shortness of breath, wheezing, cough GI: No abdominal pain, nausea, vomiting, diarrhea, constipation, melena, hematochezia : No dysuria, hematuria, increased urinary frequency, decreased urinary output MSK: No myalgia, back pain Neuro: No headaches, weakness, paresthesias. +expressive aphasia Skin: No rashes or lesions [facility] Medical History Hematuria Dysuria History of COVID-19 Sciatica of right side Cataract Menopause Statin intolerance Dyslipidemia Osteopenia of left femoral neck Ductal carcinoma in situ (DCIS) of breast H/O bladder problems Family History Father No problems noted. Mother No problems noted. Maternal Aunt No problems noted. Maternal Uncle No problems noted. Surgical History S/P lumpectomy, left breast Hx of colonoscopy History of pubovaginal sling History of prolapse of bladder Social History Housing: House Are you a primary child care coordinator to a significant other at home: No Do you presently have visiting nurse or other home services: No Alcohol intake: current Alcohol intake frequency: does not drink Alcohol type: beer and wine Patient Tobacco Use Status: Never used Tobacco e-Cigarette/Vaping Use: Never Used Current occupational status: retired Cognitive needs: No Hearing needs: No Vision needs: Yes Meds Allergies Allergy/AdvReac Type Severity Reaction Status Date / Time nitrofurantoin AdvReac Severe Diarrhea Verified 11/07/23 10:00 atorvastatin AdvReac Intermediate muslce pain Verified 11/07/23 10:00 simvastatin AdvReac Intermediate muscle pain Verified 11/07/23 10:00 Active Medications: Current Medications Ceftriaxone Sodium 1 gm/ (Sodium Chloride) 50 mls @ 100 mls/hr IV Q24H [facility] Home Medications Medication Instructions Recorded Confirmed Last Taken Type cholecalciferol (vitamin D3) 50 50 mcg PO DAILY 07/13/20 12/08/23 Unknown History mcg (2,000 unit) tablet Physical Exam Vital Signs and Narrative: Vital Signs: Last Vital Signs Temp 98.6 F 12/08/23 17:28 Pulse 87 12/08/23 17:28 Resp 18 12/08/23 17:28 BP 177/94 H 12/08/23 17:28 Pulse Ox 97 12/08/23 17:28 O2 Del Method Room Air 12/08/23 17:28 BMI result Body Mass Index 26.0 Constitutional - Awake and Alert, No apparent distress Eyes - PERRLA, EOMI Head - normocephalic, atraumatic except for well healed 1.5cm abrasion to the L orbit without any swelling or ecchymosis Cardiovascular - S1S2, RRR, No edema Respiratory - Normal lung expansion, Normal respiratory effort, No respiratory distress, CTA bilaterally Gastrointestinal - NT / ND; +BS; No rebound or guarding Extremities - no calf tenderness bilaterally, no swelling Skin - Warm/Dry Neurological - Alert & oriented x3, expressive aphasia, difficulty following commands (pulls instead of pushes etc), CN II-XII in tact, 5/5 strength BUE and BLE, 2+ patellar reflexes Psychological - Appropriate affect Results Labs 12/08/23 16:40 12/08/23 16:40 Labs: Laboratory Results - last 24 hr 12/08/23 12/08/23 12/08/23 16:39 16:40 17:00 MCV 84.1 MCH 28.1 MCHC 33.4 RDW 14.6 Plt Count 221 D MPV 9.4 Immature Gran % (Auto) 0.4 Neut % (Auto) 67.0 Lymph % (Auto) 22.0 [place]ven % (Auto) 9.0 Eos % (Auto) 0.9 Baso % (Auto) 0.7 Lymph # (Auto) 1.2 [place]ven # (Auto) 0.5 Eos # (Auto) 0.1 Baso # (Auto) 0.0 Abs Immat Gran (auto) 0.02 Absolute Neuts (auto) 3.8 Absolute Nucleated RBC 0.000 Nucleated RBC % (auto) 0.0 Hold Purple Top SEE NOTE PT 11.3 Whole Blood PT 14.1 H INR 0.9 Whole Blood INR 1.0 APTT 30.6 Anion Gap 10 L Estim Creat Clear Calc 49.8 Estimated GFR > 60 POC Glucose 152 H Random Glucose 183 H Calcium 9.3 D Total Creatine Kinase 80 Troponin I High Sens < 2.7 Urine Color Urine Appearance Urine pH Ur Specific [place] Urine Protein Urine Glucose (UA) Urine Ketones Urine Blood Urine Nitrite Ur Leukocyte Esterase Urine RBC Urine WBC Ur Squamous Epith Cells Urine Bacteria Hyaline Casts 12/08/23 17:35 MCV MCH MCHC RDW Plt Count MPV Immature Gran % (Auto) Neut % (Auto) Lymph % (Auto) [place] % (Auto) Eos % (Auto) Baso % (Auto) Lymph # (Auto) [place] # (Auto) Eos # (Auto) Baso # (Auto) Abs Immat Gran (auto) Absolute Neuts (auto) Absolute Nucleated RBC Nucleated RBC % (auto) Hold Purple Top PT Whole Blood PT INR Whole Blood INR APTT Anion Gap Estim Creat Clear Calc Estimated GFR POC Glucose Random Glucose Calcium Total Creatine Kinase Troponin I High Sens Urine Color Yellow Urine Appearance Clear Urine pH 8.5 Ur Specific [place] 1.010 Urine Protein Negative Urine Glucose (UA) Negative Urine Ketones Negative Urine Blood Moderate (2+) H Urine Nitrite Positive H Ur Leukocyte Esterase Moderate (2+) H Urine RBC 11-20 H Urine WBC 11-20 H Ur Squamous Epith Cells 0-2 Urine Bacteria 4+ Hyaline Casts 0-2 Imaging Radiologist's Impressions: Impressions Head CT 12/08/23 16:38 IMPRESSION: No acute intracranial pathology. This critical result was discussed with Dr. Thorne at 1650 hours on 12/08/2023. It was ascertained that the content and urgency of the report was understood at the time of direct communication. Head/Neck CTA 12/08/23 16:58 IMPRESSION: There is subtle loss of reese-white matter differentiation within the left precentral sulcus near the vertex. This finding may represent a small acute cortical infarct or possibly a tiny contusion if there is a clinical history of acute trauma. A dedicated brain MRI is recommended for better anatomic characterization of these findings. Otherwise no pathological enhancement on postcontrast images. No stenosis of the cervical carotid or vertebral arteries. No intracranial large vessel occlusion. This critical result was discussed with Dr Thorne at 5:09 PM on 12/08/2023 and it was ascertained that the content and urgency of the report was understood at the time of direct communication. Brain MRI 12/08/23 19:20 IMPRESSION: Multifocal small areas of acute infarction throughout the left frontal lobe and left insula with cortical restricted diffusion corresponding to the hypodensity on prior CT. Assessment and Plan (1) Embolic stroke: Status: Acute (2) New onset atrial fibrillation: Status: Acute Plan 83 year old female with history of hyperlipidemia with statin intolerance, urge incontinence, osteopenia, history of breast cancer 1999 s/p lumpectomy and radiation therapy presented to the ED earlier today for evaluation of word finding difficulty with sudden onset at about 3pm this afternoon. She is also found to be in new onset rate controlled atrial fibrillation. She will be admitted for further management of acute embolic CVA. #Acute embolic CVA -r/t new onset atrial fibrillation -MRI brain shows multifocal areas of acute infarction in the left frontal throughout the left frontal lobe and left insula with cortical restricted diffusion corresponding to the hypodensity on prior CT. CTA of the head/neck negative for any hemodynamically significant stenosis or large vessel occlusions. -given 325 mg ASA in the ED, continue 81 mg ASA daily -initiate Eliquis 5 mg b.i.d.. Discussed with Neurology and Cardiology -lipid panel pending. Patient has a contraindication to statin medications due to adverse reaction -passed bedside swallow evaluation. Stroke education ordered -echocardiogram -neuro checks q.4h -neurology consult -monitor on telemetry # new onset rate controlled atrial fibrillation -initiate Eliquis 5 mg b.i.d. as above -hold on metoprolol initiation due to acute CVA and rate is currently well controlled -cardiology consult -echocardiogram -monitor on telemetry # acute UTI -UA with 2+ leukocytes, positive nitrites, 2+ blood, positive urinary sediment, 4+ bacteria. Recently treated for UTI with positive UC growing klebsiella oxytoca sensitive to and treated with levaquin -IV CTX (initiated 12/07) -no leukocytosis, no sepsis -follow cultures DVT prophylaxis-Eliquis Full code per MOLST form Patient requires inpatient stay at least 2 midnights for management of new onset atrial fibrillation with acute embolic CVA requiring initiation of anticoagulation, close monitoring for progression of symptoms, and expert consultation Quality Stroke Does the patient have a stroke diagnosis?: Yes Reason for No Anti-thrombotic by Day Two: Not indicated VTE Prior VTE?: No VTE Risk Level:: Medical - moderate - high VTE Device Contraindication: Treatment Not Indicated VTE Drug Contraindication: N/A - Med Ordered
[2023-12-08 21:16] LABS: Cholesterol 229 mg/dL (<200); HDL Cholesterol 72 mg/dL (>40); LDL Cholesterol Calculated 142 mg/dL (<100); Triglycerides 76 mg/dL (<150)
[2023-12-08] MEDS: cefTRIAXone sodium 1 GM in 0.9 % Sodium Chloride 50 ML IV (21:17)
[2023-12-08] MEDS: Apixaban 5 MG TABLET PO (21:17)
[2023-12-08 21:20] VITALS: BP 139/75; PULSE 82; RESP 17
--- NOTE | 2023-12-08 21:40 | MHC.STROKE ---
Spoke with Latasha RN. Swallow evaluation was completed prior to patient receiving po medication.
[2023-12-08 22:14] VITALS: BP 116/66; PULSE 79; RESP 16; TEMP 36.4; O2SAT 96
--- NOTE | 2023-12-08 22:18 | MHC.EDTECH ---
Pt asked to stand and was assisted with standing and the pt stretched their legs.
--- NOTE | 2023-12-08 23:43 | PC.NURSE ---
Admit for new found afib with acute embolic CVA. Ambulatory at baseline, A/0X3 . Came in difficulty word finding around 1500 approx ( unsure of time so not candidate for TNK). Also fell yesterday with headstrike, but denies injuries. Hit L side of face. All neuros intake at this time. Pt also positive for UTI but not symptomatic ( periwick in place)/ Eliquis given , neuro checks q 4 hours, echo in am, cardiac diet. PMH Breast CA , SCIATICA ( No BP left side). 20 RAC, 18 LAC
[2023-12-09] VITALS (13 sets, daily range): BP systolic 86–128; BP diastolic 31–76; PULSE 75–123; RESP 16–24; TEMP 36.2–37.7; O2SAT 94–100
[2023-12-09 05:43] LABS: Basophils Percent Auto 0.5 % (0-2); Eosinophils Absolute Auto 0.1 X10*3/uL (0.0-0.4); Eosinophils Percent Auto 0.8 % (0-4); Hematocrit 40.4 % (37.0-47.0); Hemoglobin 13.4 g/dl (12.0-16.0); Imm Gran Abs Auto 0.03 X10*3/uL (0.00-0.03); Imm Gran Pct Auto 0.3 % (0.0-0.4); Lymphocytes Absolute Auto 1.2 X10*3/uL (1.2-4.9); Lymphocytes Percent Auto 14.1 % (20-40); MANUAL DIFF FLAG NO; Mean Corpuscular HGB Conc 33.2 g/dl (31.0-35.0); Mean Corpuscular Hemoglobin 28.1 pg (27.0-33.0); Mean Corpuscular Volume 84.7 fL (80.0-98.0); Mean Platelet Volume 9.3 fL (9.4-12.3); Monocytes Absolute Auto 0.7 X10*3/uL (0.1-1.2); Monocytes Percent Auto 8.2 % (2-11); Neutrophils Absolute Auto 6.7 x10*3/uL (2.0-8.3); Neutrophils Percent Auto 76.1 % (45-73); Platelet Count 261 X10*3/uL (160-400); Red Blood Count 4.77 X10*6/uL (4.20-5.50); Red Cell Distribution Width 14.7 % (11.0-16.0); White Blood Count 8.8 X10*3/uL (4.8-10.8)
[2023-12-09 05:57] LABS: Anion Gap 11 (12-20); Blood Urea Nitrogen 17 mg/dL (9-16); Carbon Dioxide 27 mmol/L (22-29); Chloride 109 mmol/L (96-108); Creatinine Clr Calc Pharmacy 49.8; Estimated Glomerular Filt Rate > 60; Glucose Random 103 mg/dL (60-115); Potassium 3.6 mmol/L (3.3-5.1); Sodium 143 mmol/L (135-145)
[2023-12-09 07:00] LABS: Estimated Average Glucose 105 mg/dL; Hemoglobin A1c % 5.3 % (<6.0)
--- NOTE | 2023-12-09 07:00 | CA_ITS ---
Transthoracic Echocardiogram Patient (Last, First, Middle): Juliet Reyna, Gender: Female Date of : 1940 Age: 83 Procedure Date: 12/09/2023 Procedure Type: Transthoracic Echocardiogram Location: ER Height: 167.64 cm Weight: 73.03 kg BSA: 1.82 m2 Heart Rate: bpm BP: 109 / 64 mmHg Radiology Practitioner Assistant: HALEY Referring MD: Kierra BULLARD Symptoms: cva Study Quality: Adequate Conclusions: - Normal left ventricular cavity size. There is normal left ventricular wall thickness. The left ventricular systolic function is hyperdynamic. The visually estimated ejection fraction is >70%. There is no evidence of regional wall motion abnormalities. Diastolic function is indeterminate on the basis of available data. - Normal right ventricular cavity size and systolic function. Findings Left Ventricle Normal left ventricular cavity size. There is normal left ventricular wall thickness. The left ventricular systolic function is hyperdynamic. The visually estimated ejection fraction is >70%. There is no evidence of regional wall motion abnormalities. Diastolic function is indeterminate on the basis of available data. Right Ventricle Normal right ventricular cavity size and systolic function. Atria The left atrium is normal in size. The right atrium is likely dilated. Aortic Valve There is a normal trileaflet aortic valve. There is mild calcification of the aortic valve. There is no aortic valve stenosis. There is no aortic valve regurgitation. Mitral Valve The mitral valve appears normal. There is mild mitral annular calcification. There is no mitral valve regurgitation. There is no mitral valve stenosis. Pulmonic Valve The pulmonic valve is likely normal. Tricuspid Valve Normal tricuspid valve structure and function. There is no tricuspid valve regurgitation. Normal right atrial pressure. There is no evidence of pulmonary hypertension. Great Vessels All visible segments of the aorta are normal in size. The visualized portions of the pulmonary artery and branches are normal. Venous The inferior vena cava is normal in size and collapses greater than 50% with inspiration. Pericardium/Pleural There is no evidence of pericardial effusion. Prior Study Comparison Changes noted compared to prior study dated: 08/14/2017. Hyperdynamic LV. In Atrial fibrillation so cannot assess diastolic function. Measurements 2D Linear Measurements IVSd: 1.02 0.6-0.9/0.6-1.0 cm LVIDd: 2.52 3.9-5.3/4.2-5.9 cm LVIDd Index: 1.38 2.4-3.2/2.2-3.1 cm/m2 LVIDs: 1.63 2.0-3.6 cm LVPWd: 1.12 0.7-1.1 cm LA Diam: 3.30 2.7-3.8/3.0-4.0 cm LAIDs Index: 1.81 1.5-2.3 cm/m2 LV Mass: 88.60 67-162/88-224 g LV Mass Index: 48.68 43-95/49-115 g/m2 LVOT Diam: 1.80 3.0+(-)1.3 cm 2D Systolic Function EF 4C: 69.40 >55% EF 2C: 76.00 >55% Mitral Valve MV Pk E: 0.92 MV Decel Time: 280.00 E'Lateral: 10.20 E'Medial: 8.88 E/E' Med: 10.40 E/E' Lat: 9.00 PHT: 82.00 MVA PHT: 2.68 Decel Rice: 3.29 Aortic Valve AoV Pk Alexis: 1.52 AoV Mn Alexis: 1.14 AoV VTI: 0.30 AoV Pk Grad: 9.00 Aov Mn Grad: 6.00 CORIE Cont.VTI: 2.06 LVOT LVOT Pk Alexis: 1.30 LVOT Mn Alexis: 0.97 LVOT VTI: 0.24 LVOT Pk Grad: 7.00 LVOT Mn Grad: 4.00 LVOT Diam: 1.80 LVOT Area: 2.54 Diastolic Function MV Pk E: 0.92 E'Medial: 8.88 E/E' Med: 10.40 E' Laterial: 10.20 E/E' Lat: 9.00 Right Ventricle TAPSE (mm): 17.80 TVS' Alexis: 11.60 Tricuspid Valve TR Pk Alexis: 2.05 TR Pk Grad: 17.00 RA Press: 3.00 RVSP: 20.00 Great Vessels Aorta Sinus of Valsalva: 3.30 2.0-3.5 cm Ao Asc: 3.40 2.1-3.4 cm Pulmonary Valve PV Pk Alexis: 0.92 Peak PV Grad: 3.00 Updated in Other Vendor System with Status of Final Pancho Esquivel MD electronically signed on 12/09/2023 2:19:15 PM with status of Final
[2023-12-09] MEDS: Aspirin Enteric Coated 81 MG TABLET.DR PO (09:21)
[2023-12-09] MEDS: Apixaban 5 MG TABLET PO ×2 (09:21→22:56)
[2023-12-09] MEDS: Cholecalciferol (Vitamin D3) 25 MCG TABLET 50 MCG PO (09:21)
--- NOTE | 2023-12-09 09:21 | PC.NURSE ---
patient resting quietly in bed, ate breakfast this morning swallow intact. patient alert to self, unable to tell me what year it is, and where she is. patient ambulated with PT/OT steady gait. 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 VSS, respirations equal and unlabored, skin dry and intact.
--- NOTE | 2023-12-09 09:53 | MHC.CM.PN ---
IMM 12/09/23, Pt is independent, no home services or medical equipment. HCP is on file and confirmed, her daughter, Rand, PCP confirmed: Dayanara Preston. She has transportation upon DC. She has not used [facility] or been to [facility] in the past. CM to follow and assist with DC plan.
--- NOTE | 2023-12-09 10:19 | P.PNIM_ITS ---
Subjective Subjective Date of Service: 12/09/23 Interval History: no complaints Physical Exam 2 Vital Signs: Vital Signs: Last Vital Signs Temp 98.4 F 12/09/23 09:17 Pulse 84 12/09/23 09:17 Resp 17 12/09/23 09:17 BP 103/58 L 12/09/23 09:17 Pulse Ox 97 12/09/23 09:17 O2 Del Method Room Air 12/09/23 09:17 BMI result Body Mass Index 26.0 General: AO X 3, no acute distress Resp: CTA bilateral, no accessory muscles used CVS: S1,S2,RRR GI: soft, non tender, non distended Neuro: motor grossly intact, alert Psych: appropriate affect, appropriate insight Objective Data Active Medications Acetaminophen (Acetaminophen 325 Mg Tablet) 650 mg PO Q6H PRN PRN Reason: Pain, Mild (Pain Scale 1-3) Apixaban (Apixaban 5 Mg Tablet) 5 mg PO BID [facility] Last Admin: 12/09/23 09:21 Dose: 5 mg Documented By: ELADIO Aspirin (Aspirin Enteric Coated 81 Mg Tablet.) 81 mg PO DAILY [facility] Last Admin: 12/09/23 09:21 Dose: 81 mg Documented By: ELADIO Ceftriaxone Sodium 1 gm/ (Sodium Chloride) 50 mls @ 100 mls/hr IV Q24H [facility] Last Infusion: 12/08/23 21:54 Dose: Infused Documented By: HARSH Ondansetron HCl (Ondansetron Hcl 4 Mg/2 Ml Vial) 4 mg IVPUSH Q8H PRN PRN Reason: Nausea and Vomiting Senna (Sennosides 8.6 Mg Tablet) 17.2 mg PO BEDTIME PRN PRN Reason: Constipation Sodium Chloride (0.9 % Sodium Chloride Flush 3 Ml Syringe) 3 ml IVFLUSH QSHIFT [facility] Last Admin: 12/09/23 09:23 Dose: Not Given Documented By: ELADIO Non-Admin Reason: See Note Vitamin D (Cholecalciferol (Vitamin D3) 25 Mcg Tablet) 50 mcg PO DAILY [facility] Last Admin: 12/09/23 09:21 Dose: 50 mcg Documented By: ELADIO Labs 12/09/23 05:28 12/09/23 05:28 Labs: Laboratory Results - last 24 hr 12/08/23 12/08/23 12/08/23 16:39 16:40 17:00 MCV 84.1 MCH 28.1 MCHC 33.4 RDW 14.6 Plt Count 221 D MPV 9.4 Immature Gran % (Auto) 0.4 Neut % (Auto) 67.0 Lymph % (Auto) 22.0 [place] % (Auto) 9.0 Eos % (Auto) 0.9 Baso % (Auto) 0.7 Lymph # (Auto) 1.2 [place] # (Auto) 0.5 Eos # (Auto) 0.1 Baso # (Auto) 0.0 Abs Immat Gran (auto) 0.02 Absolute Neuts (auto) 3.8 Absolute Nucleated RBC 0.000 Nucleated RBC % (auto) 0.0 Hold Purple Top SEE NOTE PT 11.3 Whole Blood PT 14.1 H INR 0.9 Whole Blood INR 1.0 APTT 30.6 Anion Gap 10 L Estim Creat Clear Calc 49.8 Estimated GFR > 60 POC Glucose 152 H Random Glucose 183 H Estimat Average Glucose 105 Hemoglobin A1c % 5.3 Calcium 9.3 D Total Creatine Kinase 80 Troponin I High Sens < 2.7 Triglycerides 76 Cholesterol 229 H LDL Cholesterol, Calc 142 H HDL Cholesterol 72 Urine Color Urine Appearance Urine pH Ur Specific [place] Urine Protein Urine Glucose (UA) Urine Ketones Urine Blood Urine Nitrite Ur Leukocyte Esterase Urine RBC Urine WBC Ur Squamous Epith Cells Urine Bacteria Hyaline Casts 12/08/23 12/09/23 17:35 05:28 MCV 84.7 MCH 28.1 MCHC 33.2 RDW 14.7 Plt Count 261 MPV 9.3 L Immature Gran % (Auto) 0.3 Neut % (Auto) 76.1 H Lymph % (Auto) 14.1 L [place] % (Auto) 8.2 Eos % (Auto) 0.8 Baso % (Auto) 0.5 Lymph # (Auto) 1.2 [place] # (Auto) 0.7 Eos # (Auto) 0.1 Baso # (Auto) 0.0 Abs Immat Gran (auto) 0.03 Absolute Neuts (auto) 6.7 Absolute Nucleated RBC 0.000 Nucleated RBC % (auto) 0.0 Hold Purple Top PT Whole Blood PT INR Whole Blood INR APTT Anion Gap 11 L Estim Creat Clear Calc 49.8 Estimated GFR > 60 POC Glucose Random Glucose 103 Estimat Average Glucose Hemoglobin A1c % Calcium 9.0 Total Creatine Kinase Troponin I High Sens Triglycerides Cholesterol LDL Cholesterol, Calc HDL Cholesterol Urine Color Yellow Urine Appearance Clear Urine pH 8.5 Ur Specific [place] 1.010 Urine Protein Negative Urine Glucose (UA) Negative Urine Ketones Negative Urine Blood Moderate (2+) H Urine Nitrite Positive H Ur Leukocyte Esterase Moderate (2+) H Urine RBC 11-20 H Urine WBC 11-20 H Ur Squamous Epith Cells 0-2 Urine Bacteria 4+ Hyaline Casts 0-2 Assessment and Plan (1) New onset atrial fibrillation: Status: Acute (2) Embolic stroke: Status: Acute Plan 83F PMH hld with statin intolerance, urge incontinence, osteopenia, breast ca 1998 s/p lumpectomy and RT, presented with word finding difficulty, found to have new afib and acute embolic cva Acute cardioembolic CVA Aspirin, Eliquis, intolerant to statin Follow-up echo, PT, OT, neuro New onset atrial fibrillation Rate controlled, continue Eliquis Urinary tract infection Ceftriaxone, follow-up cultures DVT prophylaxis on Eliquis Full code reason for continued hospitalization: Stroke workup pending Quality Stroke Does the patient have a stroke diagnosis?: Yes Reason for No Anti-thrombotic by Day Two: Not indicated VTE Prior VTE?: No VTE Risk Level:: Medical - moderate - high VTE Device Contraindication: Treatment Not Indicated VTE Drug Contraindication: N/A - Med Ordered
[2023-12-09] MEDS: LORazepam 2 MG/ML VIAL IVPUSH (11:18)
--- NOTE | 2023-12-09 11:19 | PC.NURSE ---
patient requested to go to the bathroom, patient ambulated 1 assist with this RN patient ambulated back to room stated she did not feel good, could not say what didnt feel goos. patient sat on bed, eyes open and fixed became unresponsive, patient laid back into bed and had witnessed 15 second tonic clonic seizure, posturing decorticate. patient then awoke, VSS, placed on 2l NC, inpatient provider aware and at bedside. patient received 2mg iv ativan, currently post ictal, patient currently opens eyes to name, not speaking.
[2023-12-09 11:23] LABS: Glucose, Whole Blood 117 mg/dL (60-115)
--- NOTE | 2023-12-09 11:34 | MHC.SLORD ---
Addendum entered and electronically signed by NELSY Yang 12/09/23 15:09: QUALITY CONTROL INSPECTOR returned in afternoon. Pt still post-ictal and recovering from Ativan. Family at bedside. Confirmed with RN. Original Note: Speech Language Pathology Order Status: Pt in ED pending bed availability. QUALITY CONTROL INSPECTOR arrived shortly after Pt had a witnessed seizure event. Speech/Language evaluation on hold per RN. Recommend follow-up when Pt is admitted to a private room.
--- NOTE | 2023-12-09 12:01 | PM.NEUROCN ---
History of Present Illness Data of Consult Service Date: 12/09/23 Primary Care Provider: Dayanara Preston MD HPI Reason for consult: aphasia, stroke This is a 83 year old female with history of hyperlipidemia with statin intolerance, urge incontinence, osteopenia, history of breast cancer 1999 s/p lumpectomy and RT, who presented to the ED for evaluation of word finding difficulty with sudden onset at about 3pm. The patient had reported that she had hit her head on an unguarded fan while painting a vanity but not sustain lacerations. She was experiencing intermittent expressive aphasia since arrival to the ED, but has been noted to have normal speech at different intervals, she had NIHSS of 1. No facial droop or limb weakness. Her Ct head and CTA did not show any carotid or vertebral stenosis or intracranial occlusions.MRI confirmed multiple embolic infarcts in the left MCA territory involving parietal cortex, insular cortex and underlying deep white matter. She also states some visual difficulty ongoing since last night. Denies blurred vision or diplopia but states that when reading, the words seem to blend together. No slurred speech, dysphagia, facial droop, gait ataxia, focal weakness or paresthesias. Denies any previous history of CVA. She was found to be in new onset A fib. TNK was not used because of low stroke scale and intermittent experssive dysphasia. She was started on Eliquis because of the new onset A fib and small embolic non hemorrhagic strokes.. Review of Systems Review of Systems: General: No fevers, malaise, unintentional weight loss HEENT: No blurred vision, diplopia. No sore throat, nasal congestion, rhinorrhea, sinus pain, ear pain Cardiovascular: No chest pain, palpitations, or leg edema Respiratory: No shortness of breath, wheezing, cough GI: No abdominal pain, nausea, vomiting, diarrhea, constipation, melena, hematochezia : No dysuria, hematuria, increased urinary frequency, decreased urinary output MSK: No myalgia, back pain Neuro: No headaches, weakness, paresthesias. 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 Mother No problems noted. Maternal Aunt No problems noted. Maternal Uncle No problems noted. Surgical History Surgical History S/P lumpectomy, left breast Hx of colonoscopy History of pubovaginal sling History of prolapse of bladder Social History Social History Housing: House Are you a primary resident care associate to a significant other at home: No Do you presently have visiting nurse or other home services: No Alcohol intake: current Alcohol intake frequency: does not drink Alcohol type: beer and wine Patient Tobacco Use Status: Never used Tobacco Smoked in Last 30 Days: No e-Cigarette/Vaping Use: Never Used Use of substances other than those prescribed or required for medical reasons: No Advance Directives: No Advance Directives Information Provided: No Nutrition Risks: No Nutritional Risk service: No Current occupational status: retired Cognitive needs: No Hearing needs: No Vision needs: Yes Meds Allergies Allergy/AdvReac Type Severity Reaction Status Date / Time nitrofurantoin AdvReac Severe Diarrhea Verified 11/07/23 10:00 atorvastatin AdvReac Intermediate muslce pain Verified 11/07/23 10:00 simvastatin AdvReac Intermediate muscle pain Verified 11/07/23 10:00 Active Medications: Current Medications Acetaminophen (Acetaminophen 325 Mg Tablet) 650 mg PO Q6H PRN PRN Reason: Pain, Mild (Pain Scale 1-3) Apixaban (Apixaban 5 Mg Tablet) 5 mg PO BID [facility] Last Admin: 12/09/23 09:21 Dose: 5 mg Aspirin (Aspirin Enteric Coated 81 Mg Tablet.Dr) 81 mg PO DAILY [facility] Last Admin: 12/09/23 09:21 Dose: 81 mg Ceftriaxone Sodium 1 gm/ (Sodium Chloride) 50 mls @ 100 mls/hr IV Q24H [facility] Last Infusion: 12/08/23 21:54 Dose: Infused Ondansetron HCl (Ondansetron Hcl 4 Mg/2 Ml Vial) 4 mg IVPUSH Q8H PRN PRN Reason: Nausea and Vomiting Senna (Sennosides 8.6 Mg Tablet) 17.2 mg PO BEDTIME PRN PRN Reason: Constipation Sodium Chloride (0.9 % Sodium Chloride Flush 3 Ml Syringe) 3 ml IVFLUSH QSHIFT [facility] Last Admin: 12/09/23 09:23 Dose: Not Given Vitamin D (Cholecalciferol (Vitamin D3) 25 Mcg Tablet) 50 mcg PO DAILY [facility] Last Admin: 12/09/23 09:21 Dose: 50 mcg Home Medications Medication Instructions Recorded Confirmed Last Taken Type cholecalciferol (vitamin D3) 50 50 mcg PO DAILY 07/13/20 12/08/23 Unknown History mcg (2,000 unit) tablet Physical Exam Vital Signs: Vital Signs: Last Vital Signs Temp 99.8 F 12/09/23 11:40 Pulse 81 12/09/23 11:40 Resp 21 H 12/09/23 11:40 BP 103/56 L 12/09/23 11:40 Pulse Ox 100 12/09/23 11:40 O2 Del Method Nasal Cannula 12/09/23 11:40 O2 Flow Rate 2 12/09/23 11:40 BMI result Body Mass Index 26.0 Const: Other: anixous Nutritional Appearance: average body habitus Orientation/consciousness: oriented to person and patient oriented x3 Limitations: no limitations HEENT: Head: Yes normal to inspection Ears: external ears normal General nose exam: Normal external nose present Mouth: Normal oral and palatal mucosa present and oropharynx normal Throat: Yes posterior oropharynx normal Eyes: General: appearance normal, both eyes and all related structures Neck: Neck: Yes normal visual inspection Chest: Chest palpation & inspection: normal inspection of the chest Resp: Auscultation: clear to auscultation bilaterally Cardio: Jugular venous distension: no JVD Rate: regular rate Rhythm: regular rhythm Heart sounds: S1 normal heart sound present and S2 normal heart sound present GI: Inspection: Yes normal to inspection Palpation (GI): Soft to palpation, nontender and No hepatosplenomegaly present Auscultation: normal bowel sounds : General: Yes no CVA tenderness Back/Spine/Pelvis: Back: no CVA tenderness Skin: General skin exam: no rashes or lesions noted Neuro: Other: The patient is lethargic and postictal after having had a generalized seizure about an hour and a half earlier. She can be aroused and make to follow simple commands like following the with the eyes opening her mouth holding her hands up and gripping her exam is nonfocal. She's able to count fingers no visual deficit. Extraocular movements are full. There is no facial asymmetry. There is no tongue biting. Strength is symmetrical. Language functions could not be checked because of her lethargy. General: oriented to person and patient oriented x3 Cranial nerves: Yes CN's II-XII intact bilaterally Motor exam (neuro): 5/5 motor strength present throughout Sensory Exam: No Sensory deficit (Neuro) Extrem: General: Yes normal to inspection Psych: Appearance: grossly normal Results Labs 12/09/23 05:28 12/09/23 05:28 Labs: Short CBC 12/08/23 12/09/23 Range/Units 16:40 05:28 WBC 5.6 8.8 (4.8-10.8) X10*3/uL Hgb 12.2 13.4 (12.0-16.0) g/dl Hct 36.5 L 40.4 (37.0-47.0) % Plt Count 221 D 261 (160-400) X10*3/uL BMP 12/08/23 12/09/23 16:40 05:28 Sodium 139 143 Potassium 3.4 3.6 Chloride 106 109 H Carbon Dioxide 26 27 BUN 19 H 17 H Creatinine 0.86 0.86 Calcium 9.3 D 9.0 Cardiac Enzymes 12/08/23 Range/Units 16:40 Total Creatine Kinase 80 (26-140) U/L Urine 12/08/23 Range/Units 17:35 Urine Color Yellow Urine Appearance Clear Urine pH 8.5 (5.0-9.0) Ur Specific [place] 1.010 (1.005-1.025) Urine Protein Negative (Neg-Trace) mg/dL Urine Glucose (UA) Negative (Negative) mg/dL Microbiology Microbiology Results: Microbiology 12/08/23 17:49 Urine clean catch - Urine reese top Urine Culture - Preliminary Gram negative bernardo Assessment and Plan (1) New onset atrial fibrillation: Status: Acute Anticoagulated with Eliquis after cardiac consultation (2) Embolic stroke: Status: Acute Multiple embolic strokes Secondary to atrial fibrillation. No evidence of carotid disease in the neck or intracranial circulation. No major vessel occlusions. Recommendation: Anticoagulated with the Elliquis Speech therapy for expressive dysphasia I have personally reviewed the fiilms of the MRI, CTA of the head and neck, and the followup CT scan done after the seizure.. I've also reviewed all of her lab results (3) New onset seizure: Status: Acute 15 second generalized convulsion, which is not uncommon with cortical strokes like she has. Seizure was aborted with 2 mg of Ativan. Recommendations start Keppra 250 mg twice a day Plan 83F PMH hld with statin intolerance, urge incontinence, osteopenia, breast ca 1998 s/p lumpectomy and RT, presented with word finding difficulty, found to have new afib and acute embolic cva Acute cardioembolic CVA Aspirin, Eliquis, intolerant to statin Follow-up echo, PT, OT, neuro New onset atrial fibrillation Rate controlled, continue Eliquis Urinary tract infection Ceftriaxone, follow-up cultures DVT prophylaxis on Eliquis Full code reason for continued hospitalization: Stroke workup pending Procedures Date of Service Date of Service: 12/09/23
--- NOTE | 2023-12-09 12:57 | P.CONCA_ITS ---
History of Present Illness History of Present Illness Date of Service: 12/09/23 Requesting physician: Brad Nair Chief complaint: Acute cva, new onset afib Narrative: 83-year-old female presenting with acute CVA with word-finding difficulty. She was also noticed to have atrial fibrillation. She was seen by Neurology and was started on Eliquis. She has expressive aphasia currently. Denying any other symptoms currently. Blood pressure is borderline. She has been on baby aspirin and apixaban at this point. Labs and EKG reviewed. 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 Mother No problems noted. Maternal Aunt No problems noted. Maternal Uncle No problems noted. Surgical History Surgical History S/P lumpectomy, left breast Hx of colonoscopy History of pubovaginal sling History of prolapse of bladder Social History Social History Housing: House Are you a primary healthcare or medical to a significant other at home: No Do you presently have visiting nurse or other home services: No Alcohol intake: current Alcohol intake frequency: does not drink Alcohol type: beer and wine Patient Tobacco Use Status: Never used Tobacco Smoked in Last 30 Days: No e-Cigarette/Vaping Use: Never Used Use of substances other than those prescribed or required for medical reasons: No Advance Directives: No Advance Directives Information Provided: No Nutrition Risks: No Nutritional Risk service: No Current occupational status: retired Cognitive needs: No Hearing needs: No Vision needs: Yes Meds Allergies Allergy/AdvReac Type Severity Reaction Status Date / Time nitrofurantoin AdvReac Severe Diarrhea Verified 11/07/23 10:00 atorvastatin AdvReac Intermediate muslce pain Verified 11/07/23 10:00 simvastatin AdvReac Intermediate muscle pain Verified 11/07/23 10:00 Active Medications: Current Medications Acetaminophen (Acetaminophen 325 Mg Tablet) 650 mg PO Q6H PRN PRN Reason: Pain, Mild (Pain Scale 1-3) Apixaban (Apixaban 5 Mg Tablet) 5 mg PO BID [facility] Last Admin: 12/09/23 09:21 Dose: 5 mg Aspirin (Aspirin Enteric Coated 81 Mg Tablet.) 81 mg PO DAILY [facility] Last Admin: 12/09/23 09:21 Dose: 81 mg Ceftriaxone Sodium 1 gm/ (Sodium Chloride) 50 mls @ 100 mls/hr IV Q24H [facility] Last Infusion: 12/08/23 21:54 Dose: Infused Ondansetron HCl (Ondansetron Hcl 4 Mg/2 Ml Vial) 4 mg IVPUSH Q8H PRN PRN Reason: Nausea and Vomiting Senna (Sennosides 8.6 Mg Tablet) 17.2 mg PO BEDTIME PRN PRN Reason: Constipation Sodium Chloride (0.9 % Sodium Chloride Flush 3 Ml Syringe) 3 ml IVFLUSH QSHIFT [facility] Last Admin: 12/09/23 09:23 Dose: Not Given Vitamin D (Cholecalciferol (Vitamin D3) 25 Mcg Tablet) 50 mcg PO DAILY [facility] Last Admin: 12/09/23 09:21 Dose: 50 mcg Home Medications Medication Instructions Recorded Confirmed Last Taken Type cholecalciferol (vitamin D3) 50 50 mcg PO DAILY 07/13/20 12/08/23 Unknown History mcg (2,000 unit) tablet Physical Exam 2 Vital Signs: Vital Signs: Last Vital Signs Temp 99.8 F 12/09/23 11:40 Pulse 81 12/09/23 11:40 Resp 21 H 12/09/23 11:40 BP 103/56 L 12/09/23 11:40 Pulse Ox 100 12/09/23 11:40 O2 Del Method Nasal Cannula 12/09/23 11:40 O2 Flow Rate 2 12/09/23 11:40 BMI result Body Mass Index 26.0 GENERAL APPEARANCE: in no acute distress. NECK: no carotid bruit, no jugular venous distention. SKIN: no suspicious lesions, warm and dry. HEART: no murmurs, irregular rate and rhythm. LUNGS: clear to auscultation bilaterally. ABDOMEN: soft, nontender. EXTREMITIES: no edema. PERIPHERAL PULSES: equal. NEUROLOGIC: Expressive aphasia. Objective Labs and Meds 12/09/23 05:28 12/09/23 05:28 Lab results: Laboratory Results - last 24 hr 12/08/23 12/08/23 12/08/23 16:39 16:40 17:00 WBC 5.6 RBC 4.34 Hgb 12.2 Hct 36.5 L MCV 84.1 MCH 28.1 MCHC 33.4 RDW 14.6 Plt Count 221 D MPV 9.4 Immature Gran % (Auto) 0.4 Neut % (Auto) 67.0 Lymph % (Auto) 22.0 [place] % (Auto) 9.0 Eos % (Auto) 0.9 Baso % (Auto) 0.7 Lymph # (Auto) 1.2 [place] # (Auto) 0.5 Eos # (Auto) 0.1 Baso # (Auto) 0.0 Abs Immat Gran (auto) 0.02 Absolute Neuts (auto) 3.8 Absolute Nucleated RBC 0.000 Nucleated RBC % (auto) 0.0 Hold Purple Top SEE NOTE PT 11.3 Whole Blood PT 14.1 H INR 0.9 Whole Blood INR 1.0 APTT 30.6 Sodium 139 Potassium 3.4 Chloride 106 Carbon Dioxide 26 Anion Gap 10 L BUN 19 H Creatinine 0.86 Estim Creat Clear Calc 49.8 Estimated GFR > 60 POC Glucose 152 H Random Glucose 183 H Estimat Average Glucose 105 Hemoglobin A1c % 5.3 Calcium 9.3 D Total Creatine Kinase 80 Troponin I High Sens < 2.7 Triglycerides 76 Cholesterol 229 H LDL Cholesterol, Calc 142 H HDL Cholesterol 72 Urine Color Urine Appearance Urine pH Ur Specific [place] Urine Protein Urine Glucose (UA) Urine Ketones Urine Blood Urine Nitrite Ur Leukocyte Esterase Urine RBC Urine WBC Ur Squamous Epith Cells Urine Bacteria Hyaline Casts 12/08/23 12/09/23 12/09/23 17:35 05:28 11:19 WBC 8.8 RBC 4.77 Hgb 13.4 Hct 40.4 MCV 84.7 MCH 28.1 MCHC 33.2 RDW 14.7 Plt Count 261 MPV 9.3 L Immature Gran % (Auto) 0.3 Neut % (Auto) 76.1 H Lymph % (Auto) 14.1 L [place] % (Auto) 8.2 Eos % (Auto) 0.8 Baso % (Auto) 0.5 Lymph # (Auto) 1.2 [place] # (Auto) 0.7 Eos # (Auto) 0.1 Baso # (Auto) 0.0 Abs Immat Gran (auto) 0.03 Absolute Neuts (auto) 6.7 Absolute Nucleated RBC 0.000 Nucleated RBC % (auto) 0.0 Hold Purple Top PT Whole Blood PT INR Whole Blood INR APTT Sodium 143 Potassium 3.6 Chloride 109 H Carbon Dioxide 27 Anion Gap 11 L BUN 17 H Creatinine 0.86 Estim Creat Clear Calc 49.8 Estimated GFR > 60 POC Glucose 117 H Random Glucose 103 Estimat Average Glucose Hemoglobin A1c % Calcium 9.0 Total Creatine Kinase Troponin I High Sens Triglycerides Cholesterol LDL Cholesterol, Calc HDL Cholesterol Urine Color Yellow Urine Appearance Clear Urine pH 8.5 Ur Specific [place] 1.010 Urine Protein Negative Urine Glucose (UA) Negative Urine Ketones Negative Urine Blood Moderate (2+) H Urine Nitrite Positive H Ur Leukocyte Esterase Moderate (2+) H Urine RBC 11-20 H Urine WBC 11-20 H Ur Squamous Epith Cells 0-2 Urine Bacteria 4+ Hyaline Casts 0-2 Imaging Radiologist's impression: Impressions Head CT 12/08/23 16:38 IMPRESSION: No acute intracranial pathology. This critical result was discussed with Dr. Thorne at 1650 hours on 12/08/2023. It was ascertained that the content and urgency of the report was understood at the time of direct communication. Head/Neck CTA 12/08/23 16:58 IMPRESSION: There is subtle loss of reese-white matter differentiation within the left precentral sulcus near the vertex. This finding may represent a small acute cortical infarct or possibly a tiny contusion if there is a clinical history of acute trauma. A dedicated brain MRI is recommended for better anatomic characterization of these findings. Otherwise no pathological enhancement on postcontrast images. No stenosis of the cervical carotid or vertebral arteries. No intracranial large vessel occlusion. This critical result was discussed with Dr Thorne at 5:09 PM on 12/08/2023 and it was ascertained that the content and urgency of the report was understood at the time of direct communication. Brain MRI 12/08/23 19:20 IMPRESSION: Multifocal small areas of acute infarction throughout the left frontal lobe and left insula with cortical restricted diffusion corresponding to the hypodensity on prior CT. Head CT 12/09/23 11:34 IMPRESSION: No acute process. Small areas of acute infarction in left frontal lobe on MRI performed earlier today is not visualized by CT. Assessment and Plan (1) New onset atrial fibrillation: Status: Acute (2) Embolic stroke: Status: Acute Plan Pleasant 83-year-old female presenting for acute CVA and new diagnosis of atrial fibrillation. Atrial fibrillation is the likely cause for embolic CVA in this patient. She has been appropriately started on apixaban at this point. Heart rate is well controlled and no specific medications are required for rate control currently. We will check echocardiogram to assess LV function. We will follow along with you. Thank you for allowing me to participate in the care of your patient. Please feel free to contact me if you have any questions. Procedures Date of Service Date of Service: 12/09/23
[2023-12-09] MEDS: 0.9 % Sodium Chloride 1,000 ML 80 ML IVCONT (14:45)
[2023-12-09] MEDS: 0.9 % Sodium Chloride 500 ML 999 ML IV (16:45)
--- NOTE | 2023-12-09 16:50 | PC.NURSE ---
patient had two consecutive blood pressures that were soft, inpatient provider notified, order for 500ml bolus placed. patient received 500 ml ns bolus per mar
--- NOTE | 2023-12-09 16:56 | MHC.STROKE ---
Met with patient and family to discuss stroke education. Pt is pleasant, engaged, along with family All questions answered. Plan of care discussed. Stroke Education booklet provided. Awaiting room assignment
[2023-12-09] MEDS: levETIRAcetam 250 MG TABLET PO (22:56)
[2023-12-09] MEDS: cefTRIAXone sodium 1 GM in 0.9 % Sodium Chloride 50 ML IV (22:58)
[2023-12-10 01:33] VITALS: BMI 28.9
[2023-12-10 04:00] VITALS: BP 116/62; PULSE 83; RESP 16; TEMP 36.8
[2023-12-10 07:14] VITALS: BP 124/62; PULSE 85; RESP 18; TEMP 35.8; O2SAT 97
[2023-12-10] MEDS: Aspirin Enteric Coated 81 MG TABLET.DR PO (08:34)
[2023-12-10] MEDS: 0.9 % Sodium Chloride Flush 3 ML SYRINGE IVFLUSH (08:34)
[2023-12-10] MEDS: Apixaban 5 MG TABLET PO (08:34)
[2023-12-10] MEDS: levETIRAcetam 250 MG TABLET PO (08:34)
[2023-12-10] MEDS: Cholecalciferol (Vitamin D3) 25 MCG TABLET 50 MCG PO (08:34)
[2023-12-10] MEDS: 0.9 % Sodium Chloride 1,000 ML 80 ML IVCONT (08:35)
--- NOTE | 2023-12-10 08:38 | P.PNIM_ITS ---
Subjective Subjective Date of Service: 12/10/23 Interval History: still with some expressive aphasia had event on 12/09/23 - LOC, convulsions, aborted with 2mg ativan, post ictal for about 1 hour, repeat CTH negative Review of Systems Review of Systems: Yes all other systems are reviewed and are negative Physical Exam 2 Vital Signs: Vital Signs: Last Vital Signs Temp 96.4 F L 12/10/23 07:14 Pulse 85 12/10/23 07:14 Resp 18 12/10/23 07:14 BP 124/62 12/10/23 07:14 Pulse Ox 97 12/10/23 07:14 O2 Del Method Room Air 12/10/23 07:14 O2 Flow Rate 2 12/09/23 14:51 BMI result Body Mass Index 28.9 GENERAL APPEARANCE: in no acute distress. NECK: no carotid bruit, no jugular venous distention. SKIN: no suspicious lesions, warm and dry. HEART: no murmurs, irregular rate and rhythm. LUNGS: clear to auscultation bilaterally. ABDOMEN: soft, nontender. EXTREMITIES: no edema. PERIPHERAL PULSES: equal. NEUROLOGIC: Expressive aphasia. Objective Data Active Medications Acetaminophen (Acetaminophen 325 Mg Tablet) 650 mg PO Q6H PRN PRN Reason: Pain, Mild (Pain Scale 1-3) Apixaban (Apixaban 5 Mg Tablet) 5 mg PO BID [facility] Last Admin: 12/10/23 08:34 Dose: 5 mg Documented By: THUAN Aspirin (Aspirin Enteric Coated 81 Mg Tablet.) 81 mg PO DAILY [facility] Last Admin: 12/10/23 08:34 Dose: 81 mg Documented By: THUAN Ceftriaxone Sodium 1 gm/ (Sodium Chloride) 50 mls @ 100 mls/hr IV Q24H [facility] Last Infusion: 12/09/23 23:03 Dose: 0 mls/hr Documented By: LIONEL Sodium Chloride (Ns) 1,000 mls @ 80 mls/hr IVCONT .[id number] [facility] Last Admin: 12/10/23 08:35 Dose: 80 mls/hr Documented By: THUAN Levetiracetam (Levetiracetam 250 Mg Tablet) 250 mg PO BID [facility] Last Admin: 12/10/23 08:34 Dose: 250 mg Documented By: THUAN Ondansetron HCl (Ondansetron Hcl 4 Mg/2 Ml Vial) 4 mg IVPUSH Q8H PRN PRN Reason: Nausea and Vomiting Senna (Sennosides 8.6 Mg Tablet) 17.2 mg PO BEDTIME PRN PRN Reason: Constipation Sodium Chloride (0.9 % Sodium Chloride Flush 3 Ml Syringe) 3 ml IVFLUSH QSHIFT [facility] Last Admin: 12/10/23 08:34 Dose: 3 ml Documented By: THUAN Vitamin D (Cholecalciferol (Vitamin D3) 25 Mcg Tablet) 50 mcg PO DAILY [facility] Last Admin: 12/10/23 08:34 Dose: 50 mcg Documented By: THUAN Labs 12/09/23 05:28 12/09/23 05:28 Labs: Laboratory Results - last 24 hr 12/09/23 11:19 POC Glucose 117 H Microbiology Microbiology Results: Microbiology 12/08/23 17:49 Urine Culture - Final Urine clean catch - Urine reese top Klebsiella oxytoca 12/09/23 05:41 Blood Culture - Preliminary Blood - Venous No growth after 24 hours. 12/09/23 05:41 Blood Culture - Preliminary Blood - Venous No growth after 24 hours. Assessment and Plan (1) New onset atrial fibrillation: Status: Acute (2) Embolic stroke: Status: Acute Plan 83F PMH hld with statin intolerance, urge incontinence, osteopenia, breast ca 1999 s/p lumpectomy and RT, presented with word finding difficulty, found to have new afib and acute embolic cva Acute cardioembolic CVA MRI: Multifocal small areas of acute infarction throughout the left frontal lobe and left insula continue Aspirin, Eliquis, intolerant to statin Follow-up echo PT, OT, recommending acute rehab New onset atrial fibrillation Rate controlled without chronotropic, continue Eliquis hypotension due to dehydration not sepsis continue iv fluids, bp improved seizure first event, likely due to cva seen by neuro - started on keppra 250mg bid Urinary tract infection - klebsiella oxytoca no sepsis continue Ceftriaxone day 3 DVT prophylaxis on Eliquis Full code reason for continued hospitalization: Stroke workup pending, safe dispo Quality Stroke Does the patient have a stroke diagnosis?: Yes Reason for No Anti-thrombotic by Day Two: Not indicated VTE Prior VTE?: No VTE Risk Level:: Medical - moderate - high VTE Device Contraindication: Treatment Not Indicated VTE Drug Contraindication: N/A - Med Ordered
--- NOTE | 2023-12-10 09:07 | MHC.CM.PN ---
CM met with Patient at bedside and addressed IMM with her, providing Patient with the original and a copy has been placed on the chart. Patient lives alone in a house and she required no services nor DME MANAGER LOCATION. PT is recommending Acute Rehab and [facility] is her first choice. CM has initiated and will follow for dc planning. Patient's Daughter/Rand is the HCP (on file) and the PCP is Dr. Dayanara Preston.
--- NOTE | 2023-12-10 10:47 | P.DS_ITS ---
DS: Providers Provider Date of Service: 12/10/23 Date of admission: 12/08/23 21:03 Primary care physician: Dayanara Preston MD Consults: 12/08/23 21:05 Consult to Neurology Routine Consulting Provider: [facility] Reason for consultation: acute embolic cva 12/08/23 21:07 Consult to Cardiology Routine Consulting Provider: [facility] [place] [facility] Reason for consultation: new onset afib, embolic cva DS: Diagnosis Discharge Diagnosis (1) New onset atrial fibrillation: Status: Acute (2) Embolic stroke: Status: Acute DS: Summary Hospital Course Hospital Course: from initial hpi: 83 year old female with history of hyperlipidemia with statin intolerance, urge incontinence, osteopenia, history of breast cancer 1999 s/p lumpectomy and radiation therapy presented to the ED earlier today for evaluation of word finding difficulty with sudden onset at about 3pm this afternoon. She is here today with daughter, Nancy, and son Gurinder, who are at bedside. Apparently the patient had initially reported that she was painting the underside of a vanity yesterday and hit her head on an unguarded fan but not sustain lacerations. How ever, on my exam she adamently denies injury though does endorse painting the vanity. She has been experiencing intermittent expressive aphasia since arrival to the ED, but has been noted to have normal speech at different intervals. She also states some visual difficulty ongoing since last night. Denies blurred vision or diplopia but states that when reading, the words seem to blend together. No slurred speech, dysphagia, facial droop, gait ataxia, focal weakness or paresthesias. Denies any history of CVA. She states was recently treated for UTI by Dr. Johnson and has upcoming appt with her on . Denies fevers, chills, dysuria, hematuria, increased frequency or urgency. Since arrival, pt has been intermittently hypertensive to 177/94 but normotensive at 128/78 on admission. Vitals otherwise stable. No leukocytosis or anemia. Renal function baseline, lytes normal, glucose 183. Trop below detectable limits, total CK. UA with 2+ leukocytes, +nitrites, 2+ blood, +urinary sediment, 4+ bacteria. Head CT negative for acute intracranial pathology. CTA head/neck shows subtle loss of reese-white matter differentiation within the left precentral sulcus near the vertex possibly representing small acute cortical infarct or possibly a tiny contusion there is a clinical history of acute trauma. No hemodynamically significant stenosis of cervical carotid or vertebral arteries and no large vessel occlusion. MRI brain shows multifocal small areas of acute infarction throughout the left frontal lobe and left insula with cortical restricted diffusion corresponding to the hypodensity on prior CT. In the ED, given 325mg asa. TNK not administered due to uncertain timing of symptom onset, NIH stroke score 1 and waxing and waning of symptoms. hospital course: Patient was admitted for acute cardioembolic CVA. MRI showed multifocal small areas of acute infarction throughout the left frontal lobe and left insula. She was noted to be in new onset atrial fibrillation, rate controlled without meds. She was started on aspirin and Eliquis, she is known to be intolerant to statin. Course was complicated by seizure, likely due to CVA, was seen by neurology recommended starting Keppra 250 mg b.i.d.. Further complicated by episode of hypotension due to hypovolemia due to dehydration from poor p.o. intake, not sepsis. She was given IV fluids and blood pressure improved. Patient noted to have bacteriuria with Klebsiella oxytocia, unclear clinical significance but treated empirically with ceftriaxone and will be discharged on 3 more days of Ceftin. Patient was seen by physical therapy recommended acute rehab to which patient will be discharged. Time Attestation Discharge Coordination Time: discharge time of ___35_ minutes Quality: Safe Use of Opioids Does Pt have an Active Cancer Diagnosis on the Problem List?: No Quality: Stroke Does the patient have a stroke diagnosis?: Yes Reason for No Anti-thrombotic at DC: N/A - Med Ordered Reason for No Anticoagulant at DC: N/A - Med Ordered Reason Not Initiating IV-Tpa: Drug treatment not indicated Reason for No Anti-thrombotic by Day Two: N/A - Med Ordered Reason for No Statin at DC: Drug intolerance Physical Exam Vital Signs: Vital Signs: Last Vital Signs Temp 96.4 F L 12/10/23 07:14 Pulse 85 12/10/23 07:14 Resp 18 12/10/23 07:14 BP 124/62 12/10/23 07:14 Pulse Ox 97 12/10/23 07:14 O2 Del Method Room Air 12/10/23 07:14 O2 Flow Rate 2 12/09/23 14:51 BMI result Body Mass Index 28.9 GENERAL APPEARANCE: in no acute distress. NECK: no carotid bruit, no jugular venous distention. SKIN: no suspicious lesions, warm and dry. HEART: no murmurs, irregular rate and rhythm. LUNGS: clear to auscultation bilaterally. ABDOMEN: soft, nontender. EXTREMITIES: no edema. PERIPHERAL PULSES: equal. NEUROLOGIC: Expressive aphasia. DS: Data Data Completed and Pending Labs on day of discharge: Laboratory Results - last 24 hr 12/09/23 11:19 POC Glucose 117 H Preliminary micro results at discharge 12/09/23 05:41 Blood Culture - Preliminary Blood - Venous No growth after 24 hours. 12/09/23 05:41 Blood Culture - Preliminary Blood - Venous No growth after 24 hours. Discharge Plan Discharge Anticipated Discharge Date/Time: 12/10/23 10:45 Patient Disposition: Xfer Inpatient Rehab Fac Discharge Diagnosis: cva, afib, seizure Referrals: [facility] [Other] - 1 Week Dayanara Preston MD [Primary Care Provider] - 1 Week Discharge Medications: New Eliquis 5 mg Tablet 5 mg PO BID Qty: 0 0RF aspirin 81 mg Tablet,Delayed Release (Dr/Ec) 81 mg PO DAILY Qty: 0 0RF levetiracetam 250 mg Tablet 250 mg PO BID Qty: 0 0RF cefuroxime axetil 500 mg tablet 500 mg PO BID Qty: 6 0RF Continued cholecalciferol (vitamin D3) 50 mcg (2,000 unit) tablet 50 mcg PO DAILY Discharge Orders: Discharge Order (Routine); Ordered 12/10/23 Ordered By: Brad Nair Diet: Advance to usual diet Activity on Discharge: As tolerated Stand Alone Forms: Patient Portal Discharge page Care Plan Goals: prevent further strokes, seizures Health Concerns: stroke, uti, seizure, afib Plan of Treatment: 3 more days ceftin, start keppra, eliquis, asa, statin Assessment: see above
--- NOTE | 2023-12-10 10:49 | MHC.CM.PN ---
Patient has been medically cleared for dc to Acute Rehab today. Patient will dc to her first choice facility/[facility] today at 1 PM, via [facility]. CM left a detailed message for Patient's Daughter/HCP/Rand @ [phone], informing her of the dc plan.
[2023-12-10 11:13] VITALS: BP 110/57; PULSE 74; RESP 18; TEMP 36.1; O2SAT 98
--- NOTE | 2023-12-10 11:23 | PM.PNCARD ---
Subjective Subjective Date of Service: 12/10/23 Interval history: Seen examined at bedside. Speech is better than yesterday today. Physical Exam Vital Signs: Last Vital Signs Temp 97.0 F 12/10/23 11:13 Pulse 74 12/10/23 11:13 Resp 18 12/10/23 11:13 BP 110/57 L 12/10/23 11:13 Pulse Ox 98 12/10/23 11:13 O2 Del Method Room Air 12/10/23 11:13 O2 Flow Rate 2 12/09/23 14:51 BMI result Body Mass Index 28.9 GENERAL APPEARANCE: in no acute distress. NECK: no carotid bruit, no jugular venous distention. SKIN: no suspicious lesions, warm and dry. HEART: no murmurs, irregular rate and rhythm. LUNGS: clear to auscultation bilaterally. ABDOMEN: soft, nontender. EXTREMITIES: no edema. PERIPHERAL PULSES: equal. NEUROLOGIC: Speech is improved compared to yesterday and she is answering appropriately without any word-finding difficulty today. Objective Labs and Meds 12/09/23 05:28 12/09/23 05:28 Lab results: Laboratory Results - last 24 hr 12/09/23 11:19 POC Glucose 117 H Imaging Radiologist's impression: Impressions Head CT 12/09/23 11:34 IMPRESSION: No acute process. Small areas of acute infarction in left frontal lobe on MRI performed earlier today is not visualized by CT. Progress Note: A&P Assessment and plan (1) New onset atrial fibrillation: Status: Acute (2) Embolic stroke: Status: Acute Plan 83-year-old female with embolic stroke and new diagnosis of atrial fibrillation. She is on Eliquis for anticoagulation. She had expressive aphasia which is improving at this point. Blood pressure is well controlled. Heart rate is well controlled. I have explained to her that she will be on anticoagulation long-term. Thank you for allowing me to participate in the care of your patient. Please feel free to contact me if you have any questions. Time Spent With Patient Time: Total time managing care of this patient today ____ minutes. Progress Note: Quality Stroke Does the patient have a stroke diagnosis?: Yes Reason for No Anti-thrombotic by Day Two: N/A - Med Ordered Procedures Date of Service Date of Service: 12/10/23
--- NOTE | 2023-12-10 12:17 | MHC.SP.ADU ---
Referring provider: Kierra Schreiber Reason for Referral: aphasia Type of Treatment: 13795 Assessment of Aphasia Date of Plan of Treatment: 12/10/23 Onset of Symptoms/Illness: 12/10/23 Date Treatment Started: 12/10/23 Medical Diagnosis: New onset atrial fibrillation, Embolic stroke Primary Speech Language Diagnosis: R47.01 Aphasia History Patient is 83 year old female who presented to ED on 12/07 for confusion/fall/headstrike presenting w/ difficulty word finding. 12/07 MRI: Multifocal small areas of acute infarction throughout the left frontal lobe and left insula with cortical restricted diffusion corresponding to the hypodensity on prior CT. Medical History: Hematuria Dysuria History of COVID-19 Sciatica of right side Cataract Menopause Statin intolerance Dyslipidemia Osteopenia of left femoral neck Ductal carcinoma in situ (DCIS) of breast H/O bladder problems Surgical History S/P lumpectomy, left breast Hx of colonoscopy History of pubovaginal sling History of prolapse of bladder Respiratory Needs: Room Air Patient Orientation: Alert & Oriented x 4 Social History: Employment Status: UNK Highest level of education obtained: UNK Current Living Situation: Alone Assistive Devices in use: UNK Past Speech Language Therapy: UNK Other Therapies Seen in Current Calendar Year: UNK Swallowing History: Dysphagia Specific: Risk of Aspiration Comments: Risk of aspiration d/t acute CVA Pre-evaluation Dietary Consistencies: Regular Pre-eval Liquid Intake: Thin Reported Speech, Language, Cognition difficulties: Understanding Cognition Speaking Assessment Informal Voice Assessment: Voice Loudness: Normal Voice Phonatory-based Quality: Normal Voice Pitch: Normal Tests of Speech, Lang, Cognition Adults: Patient seen by MANAGER FIELD INVESTIGATIONS for speech/language/cognitive screening with adapted WAB Bedside. Patient presented with fluent speech and full cohesive sentences. She appropriately answered orientation questions (person, place, time, event). Patient demonstrated no difficulty w/ word finding in conversation and minimal difficulty during screening (13/14 words correct). Presented w/ moderate-severe difficulty with receptive language marked by difficulty following instructions and following sequential commands (2 steps). Minimal errors in word/sentence repetition and writing tasks. Recommend MANAGER FIELD INVESTIGATIONS monitor patient's expressive language, receptive language, and cognition at rehab facility. Impressions and Recommendations Recommendation for Speech Therapy: Speech Therapy through Rehab Facility Recommend MANAGER FIELD INVESTIGATIONS tx at next level of care for expressive language, receptive language, and cognition. Monitor for any s/s aspiration d/t acute CVA. Patient Education: Completed: Yes Patient/Caregiver Education: Described Results of Evaluation Patient expressed understanding of evaluation [facility]uster Clinican/Clinical Fellow: No Supervisory Statement: N/A Speech Language Pathologist: Angelina Copeland M.A., CCC-MANAGER FIELD INVESTIGATIONS
== END 2023-12-10 13:28 | DRG 65 ==
LOC: HO.ED 18:16 → HO.EDOVER 21:08 → HO.IMC 12-09 19:14
PROVIDERS: Admitting Provider Physician Assistant; Emergency Provider Emergency Medicine; PCP Internal Medicine; Visit Provider Internal Medicine
DX: I63.9 Cerebral infarction, unspecified (principal); N39.0 Urinary tract infection, site not specified; I48.91 Unspecified atrial fibrillation; R47.01 Aphasia; B96.1 Klebsiella pneumoniae [K. pneumoniae] as the cause of diseases classified elsewhere; R56.9 Unspecified convulsions; E78.5 Hyperlipidemia, unspecified; E86.0 Dehydration; Z85.3 Personal history of malignant neoplasm of breast; I95.9 Hypotension, unspecified; E86.1 Hypovolemia; R29.701 NIHSS score 1; Z79.899 Other long term (current) drug therapy
CPT/HCPCS: 36415; 70450; 70496; 70498; 70551; 76775; 80048; 80061; 81001; 82550; 82947; 83036; 84484; 85025; 85610; 85730; 87040; 87086; 87088; 87186; 93005; 93306; 97162; 97166; 97535; 99285; J0696; J2060; Q9957; Q9967

== ENCOUNTER 2023-12-08 21:03 | Outpatient (BNV) | payer MEDICARE, SELFPAY | END 2023-12-09 07:00 | PROVIDERS: Admitting Provider Physician Assistant; Emergency Provider Emergency Medicine; PCP Internal Medicine; Visit Provider Internal Medicine Cardiovascular Disease | DX: I34.81 Nonrheumatic mitral (valve) annulus calcification (principal) | CPT/HCPCS: 93306 ==

== ENCOUNTER → 2023-12-08 21:03 | Outpatient (BNV) | payer MEDICARE, SELFPAY | PROVIDERS: Admitting Provider Physician Assistant; Emergency Provider Emergency Medicine; PCP Internal Medicine; Visit Provider Psychiatry & Neurology Neurology | DX: I48.91 Unspecified atrial fibrillation (principal); I63.40 Cerebral infarction due to embolism of unspecified cerebral artery; R56.9 Unspecified convulsions; I69.391 Dysphagia following cerebral infarction | CPT/HCPCS: 99223 ==

== ENCOUNTER → 2023-12-08 21:03 | Outpatient (BNV) | payer MEDICARE, SELFPAY | PROVIDERS: Admitting Provider Physician Assistant; Emergency Provider Emergency Medicine; PCP Internal Medicine; Visit Provider Internal Medicine Cardiovascular Disease | DX: I48.91 Unspecified atrial fibrillation (principal); I63.9 Cerebral infarction, unspecified | CPT/HCPCS: 93010; 99222; 99232 ==

== ENCOUNTER → 2023-12-08 21:03 | Outpatient (BNV) | payer MEDICARE, SELFPAY | PROVIDERS: Admitting Provider Physician Assistant; Emergency Provider Emergency Medicine; PCP Internal Medicine; Visit Provider Internal Medicine | DX: I48.91 Unspecified atrial fibrillation (principal); I63.40 Cerebral infarction due to embolism of unspecified cerebral artery | CPT/HCPCS: 99223; 99232; 99233; 99239 ==

== ENCOUNTER 2023-12-29 12:19 | Outpatient (AMB) | payer MEDICARE, SELFPAY ==
--- NOTE | 2023-12-29 12:20 | MHC.PC.OV ---
Vital Signs 12/29/23 12:21 12/29/23 13:11 Height 5 ft 6 in Weight 151 lb 8 oz BMI 24.5 BP 150/74 H 142/76 H Blood Pressure Location Rt brachial Rt brachial Position Sitting Sitting Pulse 92 Pulse Source Pulse Oximeter Pulse Oximetry (%) 98 Oxygen Delivery Method Room Air Intake Visit Reasons: HDF [place] [facility] ~ Stroke Per Dr. Preston Intake Note: [facility] Allergies nitrofurantoin Adverse Reaction (Severe, Verified 12/29/23 13:03) Diarrhea atorvastatin Adverse Reaction (Intermediate, Verified 12/29/23 13:03) muslce pain simvastatin Adverse Reaction (Intermediate, Verified 12/29/23 13:03) muscle pain Medication List - Last Reconciled 12/29/23 by CRUZITO Nails apixaban (Eliquis) 5 mg PO BID aspirin 81 mg PO DAILY Bacillus coagulans (Probiotic (B. coagulans)) cells PO cholecalciferol (vitamin D3) 50 mcg PO DAILY levetiracetam 250 mg PO BID Tobacco use date assessed: 12/29/23 Fall risk assessment: No Falls in past year Last assessed Fall Risk: 12/29/23 Dental Screening Dental Screen Date: 12/29/23 Did you have a dental visit in the last 12 months?: Yes Did you have a dental problem in the last 6 months where you did not have access to dental care?: No Was dental information given to patient?: Patient has dentist HPI HPI Comments History of Present Illness Details Patient is an 83-year-old female with a past medical history significant for hyperlipidemia, urge incontinence, osteopenia, breast cancer status post lumpectomy. 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 She was placed on Eliquis and aspirin by neurology. While in the hospital patient also was found to have new onset AFib, and new onset seizures. She was placed on Keppra for the seizures, needs follow-up with Neurology. Patient is not on a statin currently, has history of statin intolerance. Urine culture while at hospital demonstrated UTI and she was treated with Ceftin and ceftriaxone. Prior to discharge patient was consulted with Physical therapy that deemed she was a candidate for short-term rehab. Patient was discharged from short-term rehab after a 10 day stay. This included PT, OT. She was found to have hypernatremia. Repeat unchanged at 147. Will draw new CMP today. New onset AFib. Patient is currently on Eliquis and aspirin. Will order EKG in office today. Patient has referral to Cardiology. 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 Neurology started patient on Keppra 250 mg twice daily. Patient has been instructed not to drive for 6 months. Will need to monitor Keppra level. Keppra level at discharge 5.4. Will refer to Neurology. Urinary tract infection has resolved. Patient has upcoming appointment with Urology. CVA. Patient will continue on 81 mg aspirin 5 mg Eliquis. [facility] Medical History Hematuria Dysuria History of COVID-19 Sciatica of right side Cataract Menopause Statin intolerance Dyslipidemia Osteopenia of left femoral neck Ductal carcinoma in situ (DCIS) of breast H/O bladder problems Surgical History S/P lumpectomy, left breast Hx of colonoscopy History of pubovaginal sling History of prolapse of bladder Family History Father No problems noted. Mother No problems noted. Maternal Aunt No problems noted. Maternal Uncle No problems noted. Social History Household Members: None Housing: House Are you a primary career services representative to a significant other at home: No Do you presently have visiting nurse or other home services: No Alcohol intake: current Alcohol intake frequency: does not drink Alcohol type: beer and wine Patient Tobacco Use Status: Never used Tobacco e-Cigarette/Vaping Use: Never Used Second Hand Smoke Exposure: No service: No Current occupational status: retired Cognitive needs: No Hearing needs: No Vision needs: Yes Questionnaire Thrive Questionnaire Date Thrive assessed: 11/11/23 Review of Systems Const All systems reviewed & are unremarkable except as noted in HPI and below Denies headache(s) ENT Denies dizziness and Denies headache(s) Card Denies chest pain, Denies syncope and Denies dyspnea Resp Denies dyspnea Neuro Denies dizziness, Denies syncope and Denies headache(s) Physical exam (Primary Care) Vital Signs: Last Vital Signs Pulse 92 12/29/23 12:21 BP 150/74 H 12/29/23 12:21 Pulse Ox 98 12/29/23 12:21 Oxygen Delivery Method Room Air 12/29/23 12:21 Care Plan Goal for BP management: Patient's 2nd blood pressure measurement in office improved. Patient will continue take blood pressure measurements at home. Patient does not want medication at this time BMI result Body Mass Index 24.5 Tobacco/Smoking Status: Tobacco use Status Tobacco use date assessed 12/29/23 12/29/23 12:28 Patient Tobacco Use Status Never used Tobacco 12/29/23 12:23 e-Cigarette/Vaping Use Never Used 12/29/23 12:23 Thrive Assessment: Date of Thrive Assessment Date Thrive assessed 11/11/23 12/29/23 12:23 Const Other: Appearance: Alert.? Oriented X3.? No acute distress.? Head: Normocephalic, atraumatic, no step-offs or deformities Neck: Normal inspection.? Neck supple.? CVS: Normal heart rate and rhythm.? Pulses normal.? Respiratory: No respiratory distress.? Breath sounds normal.? Abdomen: Soft and nontender.? Skin: Skin warm and dry.? +small bruising on left hand, 1/4 cm.? Normal skin turgor.? Neuro: Oriented X 3.? No motor deficit.? No sensory deficit. CN 2-12 intact Eyes Pupils: Equal, round and reactive pupils present, Pupils normal by confrontation and Pupil accommodation reflex normal EOM: EOMs intact bilaterally Direct Ophthalmoscopy: normal light reflex, no photophobia and no papilledema Neck Neck: Yes normal visual inspection and Yes full ROM Neuro Cranial nerves: Yes CN's II-XII intact bilaterally, Yes Equal, round and reactive pupils present, Yes Bilaterally intact EOM present and Yes Ability to bilaterally elevate shoulders present Cognition (Neuro): normal cognition Gait exam (Neuro): Normal gait present Motor exam (neuro): 5/5 motor strength present throughout Romberg Test: Negative Office Procedures EKG [id number], Complete Assessment and Plan Assessment & Plan (1) New onset seizure: Comment: Patient is currently taking levetiracetam. Instructed not to drive for 6 months. Will refer to Neurology for follow-up from in hospital consultation Code(s): R56.9 - Unspecified convulsions (2) New onset atrial fibrillation: Comment: Patient EKG in office demonstrated normal sinus rhythm with first-degree block. Cannot rule out patient going in and out of AFib. Will refer to Cardiology. Code(s): I48.91 - Unspecified atrial fibrillation (3) Embolic stroke: Comment: Patient placed on aspirin and Eliquis while in in the hospital. Will refer to neurologist for follow-up Code(s): I63.9 - Cerebral infarction, unspecified Qualifiers: Precerebral and cerebral artery: other cerebral artery Qualified Code(s): I63.49 - Cerebral infarction due to embolism of other cerebral artery (4) Statin intolerance: Comment: muscle cramping /pain with simvastatin and atorvastatin Code(s): Z78.9 - Other specified health status (5) Hypernatremia: Comment: Patient had hypernatremia while at rehab center. Will redraw CMP, CBC, TSH Code(s): E87.0 - Hyperosmolality and hypernatremia Plan: Take your medications as prescribed. If you were prescribed antibiotics today, it is important that you take your medication to their entirety, do not skip any doses, do not finish them early. Follow-up with your primary care provider this week. Return to the emergency department with new or worsening symptoms. Such as fevers, chills, chest pain, shortness of breath, nausea, vomiting, dizziness, headache, vision changes, lethargy In case of emergency call 911 Plan Follow-up with PCP in 2 month Orders: Orders AMB EKG-In Office Today I48.91 - Unspecified atrial fibrillation TSH reflex Free T4 Today I48.91 - Unspecified atrial fibrillation Comprehensive Met. Panel Today R56.9 - Unspecified convulsions Referrals Neurology Referral R56.9 - Unspecified convulsions Cardiology Referral I48.91 - Unspecified atrial fibrillation Coding Level of Care Code Est Pt Level 4 (65346) Diagnoses New onset seizure R56.9 New onset atrial fibrillation I48.91 Cerebrovascular accident (CVA) due to embolism of other cerebral artery I63.49 Precerebral and cerebral artery: other cerebral artery Statin intolerance Z78.9 Hypernatremia E87.0 CPT Codes EKG - CPT: [id number], Complete ([id number]) Time Spent (min) 40
[2023-12-29 12:21] VITALS: BP 150/74; PULSE 92; O2SAT 98; BMI 24.5
[2023-12-29 13:11] VITALS: BP 142/76
== END 2023-12-29 13:22 | disposition home or self-care (01) ==
PROVIDERS: PCP Internal Medicine; Visit Provider Nurse Practitioner Primary Care
DX: R56.9 Unspecified convulsions (principal); I48.91 Unspecified atrial fibrillation; I63.49 Cerebral infarction due to embolism of other cerebral artery; Z78.9 Other specified health status; E87.0 Hyperosmolality and hypernatremia
CPT/HCPCS: 93000; 99214

== ENCOUNTER 2023-12-29 13:25 | Outpatient (REF) | payer MEDICARE, SELFPAY ==
[2023-12-29 16:53] LABS: Alanine Aminotransferase 21 U/L (0-31); Albumin Level 4.1 g/dL (3.5-5.0); Alkaline Phosphatase 68 U/L (39-117); Anion Gap 9 (12-20); Aspartate Amino Transferase 15 U/L (5-31); Bilirubin Total 0.4 mg/dL (0.0-1.0); Blood Urea Nitrogen 15 mg/dL (9-16); Calcium 9.4 mg/dL (8.4-10.2); Carbon Dioxide 31 mmol/L (22-29); Chloride 106 mmol/L (96-108); Estimated Glomerular Filt Rate > 60; Glucose Random 112 mg/dL (60-115); Potassium 4.2 mmol/L (3.3-5.1); Sodium 142 mmol/L (135-145); Total Protein 6.9 g/dL (6.5-8.0)
[2023-12-29 17:10] LABS: TSH reflex Free T4 2.37 uIU/mL (0.32-4.0)
== END 2023-12-29 13:26 | disposition home or self-care (01) ==
LOC: HO.HMGCLDS 13:25
PROVIDERS: PCP Internal Medicine; Visit Provider Nurse Practitioner Primary Care
DX: I48.91 Unspecified atrial fibrillation (principal); R56.9 Unspecified convulsions
CPT/HCPCS: 36415; 80053; 84443

== ENCOUNTER 2024-01-12 12:44 | Outpatient (AMB) | payer MEDICARE, SELFPAY ==
[2024-01-12 12:53] VITALS: BP 140/76; PULSE 78; BMI 23.8
--- NOTE | 2024-01-12 12:53 | MHC.OFFVIS ---
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 coagulans)) cells PO cholecalciferol (vitamin D3) 50 mcg PO DAILY levetiracetam 250 mg PO BID HPI HPI Comments History of Present Illness Details Bailey comes for follow-up. She was recently admitted in early December with new onset neurologic symptoms of aphasia and subsequently developed seizures. She was at that time diagnose with atrial fibrillation which was new onset. She was since then discharged home and she is very upset because she can not drive due to state regulations because of her seizures. She said this limits her functionality quite a bit. Although she says around the house she remains very active. She denies any symptoms of palpitations. Denies any worsening symptoms of shortness of breath, orthopnea, PND. She denies any symptoms of lightheadedness, syncope. She is currently taking both aspirin as as Eliquis for unclear reasons. She is also on Keppra. She denies any bleeding issues on new neurologic symptoms. [facility] Medical History Persistent atrial fibrillation Hematuria Dysuria History of COVID-19 Sciatica of right side Cataract Menopause Statin intolerance Dyslipidemia Osteopenia of left femoral neck Ductal carcinoma in situ (DCIS) of breast H/O bladder problems Surgical History S/P lumpectomy, left breast Hx of colonoscopy History of pubovaginal sling History of prolapse of bladder Family History Father No problems noted. Mother No problems noted. Maternal Aunt No problems noted. Maternal Uncle No problems noted. Social History Household Members: None Housing: House Are you a primary care coordinator to a significant other at home: No Do you presently have visiting nurse or other home services: No Alcohol intake: current Alcohol intake frequency: does not drink Alcohol type: beer and wine Patient Tobacco Use Status: Never used Tobacco e-Cigarette/Vaping Use: Never Used Second Hand Smoke Exposure: No service: No Current occupational status: retired Cognitive needs: No Hearing needs: No Vision needs: Yes Review of Systems Const Denies chills, Denies daytime sleepiness, Denies fatigue, Denies fever(s), Denies frequent falls, Denies poor appetite, Denies snoring, Denies stops breathing during sleep, Denies weakness, Denies weight gain and Denies weight loss Eyes Denies loss of vision ENT Denies dizziness and Denies hearing loss Card Denies chest pain, Denies claudication, Denies leg edema, Denies lightheadedness, Denies palpitations, Denies dyspnea, Denies dyspnea on exertion and Denies orthopnea Resp Denies cough, Denies excessive phlegm production, Denies dyspnea, Denies dyspnea on exertion, Denies snoring and Denies wheezing GI Denies abdominal pain, Denies hematochezia, Denies change in bowel habits, Denies nausea and Denies vomiting Denies urinary frequency and Denies dysuria Musc Denies arthralgias, Denies muscle weakness, Denies numbness and Denies other (frequent falls) Skin/Breast Denies nail changes and Denies rash Neuro Denies Abnormal speech present, Denies dizziness, Denies frequent falls, Denies loss of vision, Denies memory loss, Denies numbness and Denies weakness Psych Denies depression and Denies memory loss Endo Denies fatigue and Denies palpitations Alexandre/Lymph Reports easy bruising and Reports other (anemia) Aller/Immun Denies wheezing Physical Exam Vital Signs: Last Vital Signs Pulse 78 01/12/24 12:53 BP 140/76 H 01/12/24 12:53 BMI result Body Mass Index 23.8 Const General: cooperative, comfortable, no acute distress, alert, awake, Physically active and well groomed Nutritional Appearance: thin Orientation/consciousness: patient oriented x3 Neck Neck: Yes trachea midline, Yes supple and Yes no JVD Resp Effort & Inspection: normal respiratory effort Auscultation: clear to auscultation bilaterally Cardio Jugular venous distension: no JVD Rate: regular rate Rhythm: abnormal rhythm irregularly irregular Heart sounds: S1 normal heart sound present, S2 normal heart sound present, no click, no gallops, no murmurs and no rubs Skin General skin exam: no rashes or lesions noted Neuro General: patient oriented x3 and no focal motor deficits Speech: No Abnormal speech present Extrem General: Yes no clubbing, cyanosis or edema Assessment & Plan Assessment & Plan (1) Persistent atrial fibrillation: Code(s): I48.19 - Other persistent atrial fibrillation Plan: Persistent new onset atrial fibrillation this elderly woman causing embolic CVA. She says her neurologic deficits have improved although she still has some speech issues. She has no focal motor weakness. She is very upset about the change in her lifestyle and not able to drive which affects her independence. Although I stated that this is state regulations. She will have to have a clearance by a neurologist to drive again. Meanwhile advised her to maintain activity level as tolerated. I do not see clearly indication for dual therapy with aspirin Eliquis which will only increase her bleeding risk. I have therefore advised her to discontinue aspirin therapy and continue Eliquis 5 mg b.i.d.. Quarterly renal function test should be pursued. Also rate at rest appears to be slightly elevated have taken the liberty to start her on Toprol-XL 25 mg daily. Will assess a Holter monitor in 4 weeks time for adequate rate control. If her rate is adequately controlled and she remains completely asymptomatic without any symptoms related to AV dyssynchrony, will pursue rate control approach. This was discussed with the clearly. However she appears a little overwhelmed but understood instructions. Follow up in the clinic in 3 months time, sooner p.r.n.. Thank you for allowing me to partake in her care Orders: Orders ECG 3 day holter monitor 1 Month Danny Beckett MD I48.19 - Other persistent atrial fibrillation Medications: New metoprolol succinate ER (Toprol XL) 25 mg PO DAILY 30 tabs 5RF Danny Beckett MD Changed From levetiracetam 250 mg PO BID 0 tabs 0RF To levetiracetam 250 mg PO BID Brad Jesin, MD Refilled apixaban (Eliquis) 5 mg PO BID 180 tabs 0RF Danny Beckett MD Coding Level of Care Code Est Pt Level 4 (94588) Diagnoses Persistent atrial fibrillation I48.19
== END 2024-01-12 13:30 | disposition home or self-care (01) ==
PROVIDERS: PCP Internal Medicine; Visit Provider Internal Medicine Cardiovascular Disease
DX: I48.19 Other persistent atrial fibrillation (principal)
CPT/HCPCS: 99214

== ENCOUNTER → 2024-01-12 12:44 | Outpatient (BNVA) | payer MEDICARE, SELFPAY | PROVIDERS: PCP Internal Medicine; Visit Provider Internal Medicine Cardiovascular Disease | DX: I48.19 Other persistent atrial fibrillation (principal) | CPT/HCPCS: 99212 ==

== ENCOUNTER 2024-02-02 14:05 | Outpatient (AMB) | payer MEDICARE, SELFPAY ==
--- NOTE | 2024-02-02 14:44 | A.OFFVIS_ITS ---
Intake Visit Reasons: cysto/US Intake Note: Patient is present for Follow up, Cystoscopy not performed due to active UTI Anitbiotic Allergy: Nitrofuratoin Allergies nitrofurantoin Adverse Reaction (Severe, Verified 12/29/23 13:03) Diarrhea atorvastatin Adverse Reaction (Intermediate, Verified 12/29/23 13:03) muslce pain simvastatin Adverse Reaction (Intermediate, Verified 12/29/23 13:03) muscle pain HPI Comments Details: 02/02/2024--patient is asymptomatic urine nitrite positive reviewed prior urine cultures both Klebsiella. Discussed with the patient she may have bacteria colonization however will hold on cysto today. Reschedule office cystoscopy. Discussed renal ultrasound 12/05/23--Mild bilateral mild caliectasis without rupinder hydronephrosis. No renal calculi. Review of chart: 11/07/23--Juliet is an 83 year old female who is here for evaluation due to dysuria. The patient states she had an acute episode of increased urinary frequency and pain with urination so went the ED on 09/08/2023. A urine culture was sent which came back less than 10,000 colonies. She followed up with her PCP and was placed on Bactrim and Pyridium which she stated helped her symptoms. Past Medical history -history of breast cancer, previous bladder suspension. The patient states she does have urinary leakage associated with urgency. She states that she has had about 2 UTIs that she can remember in her life time. Examination: Pelvic exam small urethral prolapse 14 Faroese catheter-PVR 125 mL UA: Positive leukocytes, nitrate positive. I have discussed workup to include evaluation of the upper tracts and FU for cystoscopy evaluation. Urine for cytology. Urine culture. [facility] Medical History Persistent atrial fibrillation Hematuria Dysuria History of COVID-19 Sciatica of right side Cataract Menopause Statin intolerance Dyslipidemia Osteopenia of left femoral neck Ductal carcinoma in situ (DCIS) of breast H/O bladder problems Surgical History S/P lumpectomy, left breast Hx of colonoscopy History of pubovaginal sling History of prolapse of bladder Family History Father No problems noted. Mother No problems noted. Maternal Aunt No problems noted. Maternal Uncle No problems noted. Social History Household Members: None Housing: House Are you a primary medicare biller to a significant other at home: No Do you presently have visiting nurse or other home services: No Alcohol intake: current Alcohol intake frequency: does not drink Alcohol type: beer and wine Patient Tobacco Use Status: Never used Tobacco e-Cigarette/Vaping Use: Never Used Second Hand Smoke Exposure: No service: No Current occupational status: retired Cognitive needs: No Hearing needs: No Vision needs: Yes Review of Systems Const All systems reviewed & are unremarkable except as noted in HPI and below Reports no additional complaints Eyes Reports no additional complaints ENT Reports no additional complaints Card Reports no additional complaints Resp Reports no additional complaints GI Reports no additional complaints Reports as per HPI Musc Reports no additional complaints Skin/Breast Reports system reviewed and no additional complaints, except as documented Neuro Reports no additional complaints Psych Reports no additional complaints Endo Reports no additional complaints Alexandre/Lymph Reports no additional complaints Aller/Immun Reports no additional complaints Results AMB Urinalysis, Automated UA Leukoctes 125 Johanna/uL Last Edit by Saloni Lin [facility] on 02/02/24 14:53 UA Nitrite Positive Last Edit by Saloni Lin [facility] on 02/02/24 14:53 UA Urobilinogen 0.2 mg/dL Last Edit by Saloni Lin A on 02/02/24 14:5 3 UA Protein 15 mg/dL Last Edit by Saloni Lin A on 02/02/24 14:53 UA pH 5.0 Last Edit by Saloni Lin [facility] on 02/02/24 14:53 UA Blood 200 Jose/uL Last Edit by Saloni Lin [facility] on 02/02/24 14:53 UA Specific [place] 1.020 Last Edit by Saloni Lin [facility] on 02/02/24 14: 53 UA Ketone Negative Last Edit by Saloni Lin A on 02/02/24 14:53 UA Bilirubin 0 mg/dL Last Edit by Saloni Lin [facility] on 02/02/24 14:53 UA Glucose 0 mg/dL Last Edit by Saloni Lin [facility] on 02/02/24 14:53 Results Reviewed Results Reviewed: Laboratory Last Values Urine pH (Auto) 5.0 02/02/24 14:50 Specific [place] (Auto) 1.020 02/02/24 14:50 Urine Protein (Auto) 15 mg/dL 02/02/24 14:50 Glucose (UA)(Auto) 0 mg/dL 02/02/24 14:50 Urine Ketones (Auto) Negative 02/02/24 14:50 Urine Blood (Auto) 200 Jose/uL 02/02/24 14:50 Urine Nitrite (Auto) Positive 02/02/24 14:50 Urine Bilirubin (Auto) 0 mg/dL 02/02/24 14:50 Urine Urobilinogen (Auto) 0.2 mg/dL 02/02/24 14:50 Leukocyte Esterase (Auto) 125 Johanna/uL 02/02/24 14:50 Date of Service: 12/05/23 US RETROPERITONEAL LIMITED (RENAL ONLY) CLINICAL INFORMATION: Urge incontinence, hematuria. COMPARISON: None available. TECHNIQUE: Real-time imaging of the kidneys. FINDINGS: RIGHT KIDNEY: 9.7 x 5.9 x 4.6 cm (SAG x AP x TRV). The kidney is normal in size, contour, and echogenicity. Renal cortical thickness is normal. No renal calculi. Mild caliectasis without rupinder hydronephrosis. 1.3 x 1.4 x 1.1 cm simple lower pole cyst is seen. No imaging follow-up is recommended. LEFT KIDNEY: 10.8 x 5.0 x 4.3 cm (SAG x AP x TRV). The kidney is normal in size, contour, and echogenicity. Renal cortical thickness is normal. No renal calculi. Mild caliectasis without rupinder hydronephrosis. There are multiple cysts, the largest is a 1.2 x 1.3 x 1.5 cm simple cyst in the lower pole. No imaging follow-up is recommended. IMPRESSION: Mild bilateral mild caliectasis without rupinder hydronephrosis. No renal calculi. Assessment & Plan Assessment & Plan (1) Dysuria: Code(s): R30.0 - Dysuria Category: Medical (2) Urethral prolapse: Code(s): N36.8 - Other specified disorders of urethra Category: Medical (3) Urge incontinence of urine: Code(s): N39.41 - Urge incontinence Category: Medical (4) Recurrent UTI: Code(s): N39.0 - Urinary tract infection, site not specified Category: Medical Plan Hold on cystoscopy for today, urine nitrite positive. Reschedule in 2 months. urine c/s. Antiobiotics pending urine c/s results. Orders: Orders Urine Cytology 02/02/24 Jaleel Ayala MD R31.29 - Other microscopic hematuria AMB Urinalysis Automated 02/02/24 Mackenzie Turk MD Z13.9 - Encounter for screening, unspecified Urine Culture 02/02/24 Jaleel Ayala MD N39.0 - Urinary tract infection, site not specified Patient Instructions: The patient had an opportunity to ask questions regarding treatment plan. The patient expressed understanding and agreement with the above treatment plan. The patient is aware they should contact our office by phone for worsening of their current condition or the appearance of new symptoms. Compliance is encouraged with any medications and followup testing that is ordered. It is a privilege to be allowed the opportunity to participate in the urologic care of your patient. If you have any questions or concerns regarding treatment for the above conditions please do not hesitate to contact me. The office telephone contact is [phone]. This note is constructed in part using voice recognition software. While every effort has been made to ensure accuracy penal officer errors may have been included. Yours sincerely, Mackenzie Turk MD Coding Level of Care Code Est Pt Level 3 (00934) Complex EM visit Add On G2211 Diagnoses Dysuria R30.0 Urethral prolapse N36.8 Urge incontinence of urine N39.41 Recurrent UTI N39.0
== END 2024-02-02 15:19 | disposition home or self-care (01) ==
PROVIDERS: PCP Internal Medicine; Visit Provider Urology
DX: R30.0 Dysuria (principal); N36.8 Other specified disorders of urethra; N39.41 Urge incontinence; N39.0 Urinary tract infection, site not specified
CPT/HCPCS: 99213; G2211

== ENCOUNTER 2024-02-02 14:05 | Outpatient (REF) | payer MEDICARE, SELFPAY ==
[2024-02-02 17:30] LABS: Urine Cytology See Pathology rpt
== END 2024-02-02 14:06 | disposition home or self-care (01) ==
LOC: HO.LAB 14:05
PROVIDERS: Urology; PCP Internal Medicine; Visit Provider Urology
DX: R31.29 Other microscopic hematuria (principal); N39.0 Urinary tract infection, site not specified
CPT/HCPCS: 81003; 87086; 87088; 87186; 88112; 99212

== ENCOUNTER 2024-03-25 10:13 | Outpatient (AMB) | payer MEDICARE, SELFPAY ==
--- NOTE | 2024-03-25 10:34 | A.OFFVIS_ITS ---
Intake Visit Reasons: cysto Intake Note: Patient presents today for a CYSTOSCOPY Procedure: Meds: None Allergies to Antibiotic: Nitrofurantoin Blood Thinner: Eliquis Disposable Uro-G HD Cystoscope Cannula: Lot: [id number] Exp: 10/07/2026 Allergies nitrofurantoin Adverse Reaction (Severe, Verified 12/29/23 13:03) Diarrhea atorvastatin Adverse Reaction (Intermediate, Verified 12/29/23 13:03) muslce pain simvastatin Adverse Reaction (Intermediate, Verified 12/29/23 13:03) muscle pain HPI Comments Details: 03/25/24--Bailey is here for office cystoscopy. She has had recurrent UTIs. She completed a suppressive course of antibiotics, Bactrim. She states that her urinary symptoms have improved. Cystoscopy findings: Mild to moderate bladder wall thickening, mild inflammatory changes consistent with cystitis, no suspicious bladder lesions visualized. History of breast cancer unable to use Estrace cream. Discussed cranberry use, juice or supplement. Follow-up in 6 months. Review of chart: 02/02/2024--patient is asymptomatic urine nitrite positive reviewed prior urine cultures both Klebsiella. Discussed with the patient she may have bacteria colonization however will hold on cysto today. Reschedule office cystoscopy. Discussed renal ultrasound 12/05/23--Mild bilateral mild caliectasis without rupinder hydronephrosis. No renal calculi. 11/07/23--Juliet is an 83 year old female who is here for evaluation due to dysuria. The patient states she had an acute episode of increased urinary frequency and pain with urination so went the ED on 09/08/2023. A urine culture was sent which came back less than 10,000 colonies. She followed up with her PCP and was placed on Bactrim and Pyridium which she stated helped her symptoms. Past Medical history -history of breast cancer, previous bladder suspension. The patient states she does have urinary leakage associated with urgency. She states that she has had about 2 UTIs that she can remember in her life time. Examination: Pelvic exam small urethral prolapse 14 Mongolian catheter-PVR 125 mL UA: Positive leukocytes, nitrate positive. I have discussed workup to include evaluation of the upper tracts and FU for cystoscopy evaluation. Urine for cytology. Urine culture. 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 Mother No problems noted. Maternal Aunt No problems noted. Maternal Uncle No problems noted. Social History Household Members: None Housing: House Are you a primary child care associate teacher to a significant other at home: No Do you presently have visiting nurse or other home services: No Alcohol intake: current Alcohol intake frequency: does not drink Alcohol type: beer and wine Patient Tobacco Use Status: Never used Tobacco e-Cigarette/Vaping Use: Never Used Second Hand Smoke Exposure: No service: No Current occupational status: retired Cognitive needs: No Hearing needs: No Vision needs: Yes Review of Systems Const All systems reviewed & are unremarkable except as noted in HPI and below Reports no additional complaints Eyes Reports no additional complaints ENT Reports no additional complaints Card Reports no additional complaints Resp Reports no additional complaints GI Reports no additional complaints Reports as per HPI Musc Reports no additional complaints Skin/Breast Reports system reviewed and no additional complaints, except as documented Neuro Reports no additional complaints Psych Reports no additional complaints Endo Reports no additional complaints Alexandre/Lymph Reports no additional complaints Aller/Immun Reports no additional complaints Office Procedures Cystoscopy Consent Discussed risk and benefit or proposed procedure with the patient. Information consent for procedure given to the patient. Discussed technical aspects, risks, benefits and alternatives in full. Addressed all of the patient's questions and concerns regarding the procedure. The patient demonstrated knowledge and understanding. They wish to proceed with this procedure. Preparation The patient was prepped in the usual manner. A jointer machine operator was present and in the room. Genitalia was prepped with betadine solution in a sterile manner. Lidocaine Jelly 2% was placed into the urethra and 16Fr flexible Olympus cystoscope was inserted into the meatus after adequate lubrication. Procedure Time out per protocol performed. Bladder Inspection Bladder Inspection: The bladder was inspected in its entirety with utilization retroflexion displaying: Tumor(s): No suspicious lesions visualized Trabeculation: Mild to moderate Mucosal Erthema: Mild Orifices: normal shape and position Urethra: normal Cystoscopy findings: Mild to moderate bladder wall thickening, mild inflammatory changes consistent with cystitis, no suspicious bladder lesions visualized [id number] DISPOSABLE SCOPE URO-G FLEXIBLE SCOPE Procedure code (CPT) selection complete Office Meds lidocaine HCl 2 % mucosal jelly in applicator Performing Provider: Mackenzie Turk MD [place] [facility] [place] [facility] Administered by: Juan Carlos Amaro RN on 03/25/24 10:45 Dose Route Admin Location Dispensed Lot Number Expiration Date NDC Straight Truck Driver 10 mL intra-urethral 10 mL naproxen 500 mg tablet Performing Provider: Mackenzie Turk MD Performing Location[place] [facility] [place] [facility] Administered by: Juan Carlos Aamro RN on 03/25/24 10:45 Dose Route Admin Location Dispensed Lot Number Expiration Date NDC Straight Truck Driver 500 mg PO 1 tab ciprofloxacin HCl 500 mg tablet Performing Provider: Mackenzie Turk MD Performing [place] [facility] [place] [facility] Administered by: Juan Carlos Amaro RN on 03/25/24 10:45 Dose Route Admin Location Dispensed Lot Number Expiration Date NDC Straight Truck Driver 500 mg PO 1 tab Results AMB Urinalysis, Automated UA Leukoctes 70 Johanna/uL Last Edit by CHRISTIANO Browne on 03/25/24 10:45 1+ Niurka Solo 03/25/24 10:45 UA Nitrite Negative Last Edit by CHRISTIANO Browne on 03/25/24 10:45 UA Urobilinogen 0.2 mg/dL Last Edit by CHRISTIANO Browne on 03/25/24 10:4 5 UA Protein 0 mg/dL Last Edit by CHRISTIANO Browne on 03/25/24 10:45 UA pH 6.5 Last Edit by CHRISTIANO Browne on 03/25/24 10:45 UA Blood 80 Jose/uL Last Edit by CHRISTIANO Browne on 03/25/24 10:45 2+ Niurka Solo 03/25/24 10:45 UA Specific [place] 1.010 Last Edit by Niurka Solo CHRISTIANO on 03/25/24 10: 45 UA Ketone Negative Last Edit by Niurka Solo CHRISTIANO on 03/25/24 10:45 UA Bilirubin 0 mg/dL Last Edit by CHRISTIANO Browne on 03/25/24 10:45 UA Glucose 0 mg/dL Last Edit by AYALA BrowneNaida on 03/25/24 10:45 Results Reviewed Results Reviewed: Laboratory Last Values Urine pH (Auto) 6.5 03/25/24 10:44 Specific [place] (Auto) 1.010 03/25/24 10:44 Urine Protein (Auto) 0 mg/dL 03/25/24 10:44 Glucose (UA)(Auto) 0 mg/dL 03/25/24 10:44 Urine Ketones (Auto) Negative 03/25/24 10:44 Urine Blood (Auto) 80 Jose/uL 03/25/24 10:44 Urine Nitrite (Auto) Negative 03/25/24 10:44 Urine Bilirubin (Auto) 0 mg/dL 03/25/24 10:44 Urine Urobilinogen (Auto) 0.2 mg/dL 03/25/24 10:44 Leukocyte Esterase (Auto) 70 Johanna/uL 03/25/24 10:44 Date of Service: 12/05/23 US RETROPERITONEAL LIMITED (RENAL ONLY) CLINICAL INFORMATION: Urge incontinence, hematuria. COMPARISON: None available. TECHNIQUE: Real-time imaging of the kidneys. FINDINGS: RIGHT KIDNEY: 9.7 x 5.9 x 4.6 cm (SAG x AP x TRV). The kidney is normal in size, contour, and echogenicity. Renal cortical thickness is normal. No renal calculi. Mild caliectasis without rupinder hydronephrosis. 1.3 x 1.4 x 1.1 cm simple lower pole cyst is seen. No imaging follow-up is recommended. LEFT KIDNEY: 10.8 x 5.0 x 4.3 cm (SAG x AP x TRV). The kidney is normal in size, contour, and echogenicity. Renal cortical thickness is normal. No renal calculi. Mild caliectasis without rupinder hydronephrosis. There are multiple cysts, the largest is a 1.2 x 1.3 x 1.5 cm simple cyst in the lower pole. No imaging follow-up is recommended. IMPRESSION: Mild bilateral mild caliectasis without rupinder hydronephrosis. No renal calculi. Assessment & Plan Assessment & Plan (1) Dysuria: Code(s): R30.0 - Dysuria Category: Medical (2) Urethral prolapse: Code(s): N36.8 - Other specified disorders of urethra Category: Medical (3) Urge incontinence of urine: Code(s): N39.41 - Urge incontinence Category: Medical (4) Recurrent UTI: Code(s): N39.0 - Urinary tract infection, site not specified Category: Medical Plan Recurrent UTIs. Completed a course of suppressive antibiotics. She states urinary symptoms have improved. Cystoscopy inflammatory changes consistent with cystitis. History of breast cancer unable to use Estrace cream. Discussed cranberry use, juice or supplement. Follow-up in 6 months. Orders: Orders AMB Cystoscopy Today N39.0 - Urinary tract infection, site not specified, N39.41 - Urge incontinence AMB Urinalysis Automated Today Z13.9 - Encounter for screening, unspecified Patient Instructions: The patient had an opportunity to ask questions regarding treatment plan. The patient expressed understanding and agreement with the above treatment plan. The patient is aware they should contact our office by phone for worsening of t heir current condition or the appearance of new symptoms. Compliance is encouraged with any medications and followup testing that is ordered. It is a privilege to be allowed the opportunity to participate in the urologic care of your patient. If you have any questions or concerns regarding treatment for the above conditions please do not hesitate to contact me. The office telephone contact is [phone]. This note is constructed in part using voice recognition software. While every effort has been made to ensure accuracy head chopper errors may have been included. Yours sincerely, Mackenzie Turk MD Coding Level of Care Code Est Pt Level 3 (36032) Diagnoses Dysuria R30.0 Urethral prolapse N36.8 Urge incontinence of urine N39.41 Recurrent UTI N39.0 CPT Codes Cystoscopy - CPT: 77093-[id number] ([id number])
== END 2024-03-25 11:15 | disposition home or self-care (01) ==
PROVIDERS: PCP Internal Medicine; Visit Provider Urology
DX: R30.0 Dysuria (principal); N39.0 Urinary tract infection, site not specified; N00-N99 Diseases of the genitourinary system; N36.8 Other specified disorders of urethra; N39.41 Urge incontinence; Z13.9 Encounter for screening, unspecified
CPT/HCPCS: 52000

== ENCOUNTER → 2024-03-25 10:13 | Outpatient (BNVA) | payer MEDICARE, SELFPAY | PROVIDERS: PCP Internal Medicine; Visit Provider Urology | DX: N36.8 Other specified disorders of urethra (principal); N39.41 Urge incontinence; N39.0 Urinary tract infection, site not specified; R30.0 Dysuria | CPT/HCPCS: 52000; 81003 ==

== ENCOUNTER → 2024-04-06 10:53 | Outpatient (REF) | payer MEDICARE, SELFPAY ==
--- NOTE | 2024-04-06 10:55 | HM_ITS ---
Conclusion: 1. Patient was monitored for total period of 3 days 2. Baseline was normal sinus rhythm with average heart rate of 68 beats per minute 3. No significant pauses noted 4. Frequent PACs noted with total burden of 1.1% without any sustained supraventricular arrhythmias 5. No patient reported symptoms MTDD
== END ==
LOC: HO.CARD 10:53
PROVIDERS: PCP Internal Medicine; Visit Provider Internal Medicine Cardiovascular Disease
DX: I48.19 Other persistent atrial fibrillation (principal)
CPT/HCPCS: 93242

== ENCOUNTER → 2024-04-06 10:55 | Outpatient (BNV) | payer MEDICARE, SELFPAY | PROVIDERS: PCP Internal Medicine; Visit Provider Internal Medicine Cardiovascular Disease | DX: I49.1 Atrial premature depolarization (principal) | CPT/HCPCS: 93244 ==

== ENCOUNTER 2024-04-22 12:42 | Outpatient (AMB) | payer MEDICARE, SELFPAY ==
[2024-04-22 12:45] VITALS: BP 130/68; PULSE 84; BMI 23.1
--- NOTE | 2024-04-22 12:45 | A.OFFVIS_ITS ---
Vital Signs 04/22/24 12:45 Height 5 ft 6 in Weight 143 lb 4.807 oz BMI 23.1 BP 130/68 Blood Pressure Location Lt brachial Position Sitting Pulse 84 Intake Visit Reasons: 3m follow up/ Holter Intake Note: 3 month follow-up after holter feeling Allergies nitrofurantoin Adverse Reaction (Severe, Verified 12/29/23 13:03) Diarrhea atorvastatin Adverse Reaction (Intermediate, Verified 12/29/23 13:03) muslce pain simvastatin Adverse Reaction (Intermediate, Verified 12/29/23 13:03) muscle pain Medication List - Last Reconciled 04/22/24 by Danny Beckett MD apixaban (Eliquis) 5 mg PO BID Bacillus coagulans (Probiotic (B. coagulans)) cells PO cholecalciferol (vitamin D3) 50 mcg PO DAILY docusate sodium (Stool Softener) 50 mg PO DAILY levetiracetam 250 mg PO BID metoprolol succinate ER (Toprol XL) 25 mg PO DAILY HPI Comments Details: Bailey comes for follow-up. She is doing well since his stroke. She has no new cardiovascular symptoms. She is very bothered by all the medication she has to take now. She says she has never take any medications in the past. Holter monitor done showed predominantly sinus rhythm with frequent PACs. EKG done today in the office shows sinus rhythm. She is taking all her medications. She has no bleeding issues or neurologic events. No exertional chest pain or shortness of breath. No heart failure symptoms. No prolonged palpitation, irregular heartbeat, lightheadedness, syncope. No new seizure-like activity. She is very bothered as she can not drive since her hospitalization. 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 Mother No problems noted. Maternal Aunt No problems noted. Maternal Uncle No problems noted. Social History Household Members: None Housing: House Are you a primary managed care provider to a significant other at home: No Do you presently have visiting nurse or other home services: No Alcohol intake: current Alcohol intake frequency: does not drink Alcohol type: beer and wine Patient Tobacco Use Status: Never used Tobacco e-Cigarette/Vaping Use: Never Used Second Hand Smoke Exposure: No service: No Current occupational status: retired Cognitive needs: No Hearing needs: No Vision needs: Yes Review of Systems Const Denies chills, Denies fatigue, Denies fever(s), Denies frequent falls, Denies weakness, Denies weight gain and Denies weight loss ENT Denies dizziness Card Denies chest pain, Denies leg edema, Denies lightheadedness, Denies palpitations, Denies dyspnea, Denies dyspnea on exertion, Denies orthopnea and Denies other (loss of consciousness) Resp Denies cough, Denies dyspnea and Denies dyspnea on exertion GI Denies hematochezia and Denies change in stool character Musc Denies abnormal gait, Denies muscle weakness, Denies numbness, Denies radiating pain into limb and Denies tingling Neuro Denies abnormal gait, Denies dizziness, Denies frequent falls, Denies numbness, Denies tingling and Denies weakness Endo Denies fatigue and Denies palpitations Physical Exam Vital Signs: Last Vital Signs Pulse 84 04/22/24 12:45 BP 130/68 04/22/24 12:45 BMI result Body Mass Index 23.1 Const General: cooperative, comfortable, no acute distress, alert, awake, Physically active and well groomed Nutritional Appearance: average body habitus Orientation/consciousness: patient oriented x3 Limitations: no limitations Neck Neck: Yes trachea midline, Yes supple and Yes no JVD Resp Effort & Inspection: normal respiratory effort Auscultation: clear to auscultation bilaterally Cardio Jugular venous distension: no JVD Palpation: normal PMI Rate: regular rate Rhythm: regular rhythm Heart sounds: S1 normal heart sound present, S2 normal heart sound present, no click, no gallops and no murmurs GI Auscultation: normal bowel sounds Skin General skin exam: no rashes or lesions noted Neuro General: patient oriented x3 and no focal motor deficits Extrem General: Yes no clubbing, cyanosis or edema Office Procedures EKG Details: EKG shows normal sinus rhythm with normal EKG with sinus arrhythmia [id number], Complete Assessment & Plan Assessment & Plan (1) Paroxysmal atrial fibrillation: Code(s): I48.0 - Paroxysmal atrial fibrillation Category: Medical Plan: Paroxysmal atrial fibrillation without any significant symptoms. She remains at risk for recurrent atrial fibrillation given her age and frequent PACs. She had embolic CVA and remains at very high risk for recurrent CVA. This was discussed with her. Importance of medications were discussed. Continue full oral anticoagulation with Eliquis. Low risk for bleeding complications associated with Eliquis was discussed. Quarterly renal function test should be pursued through your office. Continue metoprolol therapy to reduce risk of recurrent atrial fibrillation. Advised to call me with any new symptoms. Advised to maintain activity level as tolerated. Avoidance of stimulants was discussed. Will follow up in the clinic in 6 months time, sooner p.r.n.. Thank you for allowing me to partake in the care Coding Level of Care Code Est Pt Level 4 (23721) Diagnoses Paroxysmal atrial fibrillation I48.0 CPT Codes EKG - CPT: 10123-[id number], Complete ([id number])
== END 2024-04-22 13:46 | disposition home or self-care (01) ==
PROVIDERS: PCP Internal Medicine; Visit Provider Internal Medicine Cardiovascular Disease
DX: I48.0 Paroxysmal atrial fibrillation (principal)
CPT/HCPCS: 93010; 99214

== ENCOUNTER → 2024-04-22 12:42 | Outpatient (BNVA) | payer MEDICARE, SELFPAY | PROVIDERS: PCP Internal Medicine; Visit Provider Internal Medicine Cardiovascular Disease | DX: I48.0 Paroxysmal atrial fibrillation (principal) | CPT/HCPCS: 93005; 99212 ==

== ENCOUNTER 2024-06-02 13:56 | Outpatient (AMB) | payer MEDICARE, SELFPAY ==
[2024-06-02 14:07] VITALS: BMI 23.7
--- NOTE | 2024-06-02 14:07 | MHC.OFFVIS ---
Vital Signs 06/02/24 14:07 Height 5 ft 6 in Weight 147 lb 2 oz BMI 23.7 Intake Visit Reasons: INP- Unspecified convulsions Intake Note: Pt presents to the office for consultation for unspecified convulsions. 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 coagulans)) cells PO cholecalciferol (vitamin D3) 50 mcg PO DAILY docusate sodium (Stool Softener) 50 mg PO DAILY levetiracetam 250 mg PO BID metoprolol succinate ER (Toprol XL) 25 mg PO DAILY HPI Comments Details: 84y/o female comes for neurological evaluation . 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 she was diagnosed with new onset Atrial fibrillation, started on Eliquis. she also had brief 15 second convulsion during the hospitalization which was aborted with ativan 2mg qd she was started on levetiracetam 250mg bid. No seizure like episodes since then. she is doing well now. speech is good. she is taking exercise classes at the [employer] [place]. she wants to start driving as she was told not to drive for 6 mths . she is seeing [facility]. 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 Mother No problems noted. Maternal Aunt No problems noted. Maternal Uncle No problems noted. Social History Household Members: None Housing: House Are you a primary long term care phlebotomist to a significant other at home: No Do you presently have visiting nurse or other home services: No Alcohol intake: current Alcohol intake frequency: does not drink Alcohol type: beer and wine Patient Tobacco Use Status: Never used Tobacco e-Cigarette/Vaping Use: Never Used Second Hand Smoke Exposure: No service: No Current occupational status: retired Cognitive needs: No Hearing needs: No Vision needs: Yes Physical Exam Vital Signs: BMI result Body Mass Index 23.7 Const General: cooperative, healthy appearing and comfortable Nutritional Appearance: average body habitus Orientation/consciousness: patient oriented x3 Eyes Pupils: Equal, round and reactive pupils present Neck Neck: Yes no meningeal signs Neuro Other: gait -mild stoop and slowness General: patient oriented x3, tone normal, moves all extremities, no meningeal signs and no focal motor deficits Cranial nerves: Yes Facial sensation intact/muscles of mastication intact, Yes Equal, round and reactive pupils present, Yes Bilaterally intact EOM present, Yes Nystagmus not present, Yes Normal facial strength present, Yes Midline tongue present, Yes Symmetric palate elevation present and Yes Ability to bilaterally elevate shoulders present Cognition (Neuro): normal cognition Speech: Other speech findings present (Neuro) Gait exam (Neuro): Antalgic gait present Motor exam (neuro): 5/5 motor strength present throughout, Pronator motor function not present and Normal motor muscle tone present throughout Deep tendon reflexes (DTR's): Right triceps reflex intensity grade: 1+, Left triceps reflex intensity grade: 1+, Rt Biceps (C5, C6): 1+, Left biceps reflex intensity grade: 1+, Right brachioradialis reflex intensity grade: 1+, Left brachioradialis reflex intensity grade: 1+, Right patellar reflex intensity grade: 1+ and Left patellar reflex intensity grade: 1+ Coordination: pudecy-bj-[id number] test normal Results Reviewed Results Reviewed: 12/27 MRI Brain -Multifocal small areas of acute infarction throughout the left frontal lobe and left insula with cortical restricted diffusion corresponding to the hypodensity on prior CT. Assessment & Plan Assessment & Plan (1) New onset seizure: Comment: 15 second convulsion - In December 2023 when she had an embolic infarct - stable since then Code(s): R56.9 - Unspecified convulsions Category: Medical (2) Embolic stroke: Comment: Patient placed on aspirin and Eliquis while in in the hospital. Will refer to neurologist for follow-up Code(s): I63.9 - Cerebral infarction, unspecified Category: Medical Qualifiers: Precerebral and cerebral artery: other cerebral artery Qualified Code(s): I63.49 - Cerebral infarction due to embolism of other cerebral artery Plan Taper levetiracetam- patient needs to be supervised when tapering off.Decrease to 250mg qam for 3 days and then stop. EEG for baseline F/u Cardiology Patient will call me in 10 days and if stable and no seizures she can drive. Orders: Orders EEG electroencephalogram Today R56.9 - Unspecified convulsions Coding Level of Care Code New Pt Level 4 (62449) Diagnoses New onset seizure R56.9 Cerebrovascular accident (CVA) due to embolism of other cerebral artery I63.49 Precerebral and cerebral artery: other cerebral artery
== END 2024-06-02 14:57 | disposition home or self-care (01) ==
PROVIDERS: PCP Internal Medicine; Visit Provider Psychiatry & Neurology Neurology
DX: R56.9 Unspecified convulsions (principal); I63.49 Cerebral infarction due to embolism of other cerebral artery
CPT/HCPCS: 99204

== ENCOUNTER → 2024-06-02 13:56 | Outpatient (BNVA) | payer MEDICARE, SELFPAY | PROVIDERS: PCP Internal Medicine; Visit Provider Psychiatry & Neurology Neurology | DX: R56.9 Unspecified convulsions (principal); I69.320 Aphasia following cerebral infarction; I48.91 Unspecified atrial fibrillation; Z79.01 Long term (current) use of anticoagulants; Z79.899 Other long term (current) drug therapy | CPT/HCPCS: 99202 ==

== ENCOUNTER 2024-07-15 10:32 | Outpatient (REF) | payer MEDICARE, SELFPAY ==
--- NOTE | ~2024-07-15 | MM_ITS ---
EXAMINATION: MM SCREENING DIGITAL BREAST TOMOSYNTHESIS, BILATERAL CLINICAL INFORMATION: Screening. Asymptomatic. COMPARISON: Mammography: Comparison is made with available priors TECHNIQUE: Digital breast mammography with tomosynthesis is performed in both the craniocaudal and mediolateral oblique views along with computer-aided detection (CAD). FINDINGS: There are scattered areas of fibroglandular density (ACR BI-RADS breast composition Category b). [Post surgical changes stable. There are no significant masses, abnormal calcifications, or other abnormalities. MM/MM tomosynthesis screening BI IMPRESSION: No mammographic evidence of malignancy. ASSESSMENT: BI-RADS BI-RADS 2 - Benign Findings RECOMMENDATION: Routine annual mammography screening. 1 year F/U This examination should not preclude the clinical evaluation of a suspicious palpable abnormality. This patient's information was entered into a reminder system with a target due date for their next mammogram. Electronically signed by: Sammie Peralta DO 07/27/2024 12:14 PM EDT
== END 2024-07-15 10:33 | disposition home or self-care (01) ==
LOC: HO.MAMMO 10:32
PROVIDERS: PCP Internal Medicine; Visit Provider Internal Medicine
DX: Z12.31 Encounter for screening mammogram for malignant neoplasm of breast (principal)
CPT/HCPCS: 77063; 77067

== ENCOUNTER → 2024-07-15 10:45 | Outpatient (BNV) | payer MEDICARE, SELFPAY | PROVIDERS: PCP Internal Medicine; Visit Provider Internal Medicine | DX: Z12.31 Encounter for screening mammogram for malignant neoplasm of breast (principal) | CPT/HCPCS: 77063; 77067 ==

== ENCOUNTER 2024-08-18 12:40 | Outpatient (REF) | payer MEDICARE, SELFPAY ==
--- NOTE | 2024-08-18 12:40 | EEG_ITS ---
FINDINGS: The waking background activity consists of a moderate voltage 8 to 9 hertz posterior alpha frequency, intermixed posteriorly with low-voltage fast frequencies. Photic stimulation is without activation. Hyperventilation was omitted. No focal, lateralizing, or paroxysmal discharges are seen. IMPRESSION: This waking EEG is within normal limits. MD SAM Waldrop/JULES / [id number]
== END 2024-08-18 12:41 | disposition home or self-care (01) ==
LOC: HO.NEURO 12:40
PROVIDERS: PCP Internal Medicine; Visit Provider Psychiatry & Neurology Neurology
DX: R56.9 Unspecified convulsions (principal)
CPT/HCPCS: 95816

== ENCOUNTER 2024-09-10 08:11 | Outpatient (REF) | payer MEDICARE, SELFPAY ==
[2024-09-10 11:04] LABS: Alanine Aminotransferase 16 U/L (0-31); Aspartate Amino Transferase 18 U/L (5-31); Cholesterol 221 mg/dL (<200); HDL Cholesterol 70 mg/dL (>40); LDL Cholesterol Calculated 135 mg/dL (<100); Triglycerides 83 mg/dL (<150)
[2024-09-10 11:44] LABS: Hematocrit 39.8 % (37.0-47.0); Hemoglobin 13.3 g/dl (12.0-16.0)
== END 2024-09-10 08:12 | disposition home or self-care (01) ==
LOC: HO.HMGCLDS 08:11
PROVIDERS: PCP Internal Medicine; Visit Provider Internal Medicine
DX: I48.0 Paroxysmal atrial fibrillation (principal); E78.5 Hyperlipidemia, unspecified; M85.852 Other specified disorders of bone density and structure, left thigh; Z78.0 Asymptomatic menopausal state; I63.49 Cerebral infarction due to embolism of other cerebral artery; Z79.01 Long term (current) use of anticoagulants
CPT/HCPCS: 36415; 80061; 82306; 84450; 84460; 85014; 85018

== ENCOUNTER 2024-09-13 09:28 | Outpatient (AMB) | payer MEDICARE, SELFPAY ==
--- NOTE | 2024-09-13 10:24 | A.OFFVIS_ITS ---
Intake Vital Signs 09/13/24 10:37 Height 5 ft 6 in Weight 143 lb BMI 23.1 BP 142/84 H Blood Pressure Location Rt brachial Position Sitting Pulse 93 Pulse Source Pulse Oximeter Pulse Oximetry (%) 98 Oxygen Delivery Method Room Air Intake Visit Reasons: awv G0439 Intake Note: Pt is here today for her AWV: Last mammogram 07/03/23, bone density scan 07/03/23, colonoscopy 07/13/10 Allergies nitrofurantoin Adverse Reaction (Severe, Verified 09/13/24 10:51) Diarrhea atorvastatin Adverse Reaction (Intermediate, Verified 09/13/24 10:51) muslce pain simvastatin Adverse Reaction (Intermediate, Verified 09/13/24 10:51) muscle pain Medication List - Last Reconciled 09/13/24 by Dayanara Preston MD apixaban (Eliquis) 5 mg PO BID Bacillus coagulans (Probiotic (B. coagulans)) cells PO cholecalciferol (vitamin D3) 50 mcg PO DAILY metoprolol succinate ER (Toprol XL) 25 mg PO DAILY HPI awv G0439 HPI Details SWV ? 83 year old presents for her ? Annual Wellness Visit, subsequent visit. She is up-to-date with her screening mammogram done 07/15/2024 with benign findings, and had her last bone density scan done on 07/03/2023 which showed which showed normal bone density in her left femur and lumbar spine, with osteopenia in her left femoral neck. Last colonoscopy was done 10/13/[address] Correia, with no further testing indicated per provider. She is up-to-date with her flu shot, pneumococcal vaccination, and tetanus booster but declines getting shingles vaccine or COVID vaccine booster. She had a normal fasting lipid panel and diabetes mellitus screening done earlier this year ? Medical / Social History Reviewed? Past Medical History ?Yes . ? [place] of Care / Care Team list updated ?Yes . ? Surgical/Hospitalization History ?Yes . ? Current Medications (including OTC and supplements) ?Yes . ? Family History ?Yes . ? Tobacco Control form ?Yes . ? AUDIT-C (Alcohol use) form ?Yes . ? Illicit drug use in Social History ?Yes . ? Current diagnosis of depression? ?No ? Appropriate PHQ2/PHQ9 completed ?Yes . ? Data entered by ?Freight Receiver and reviewed by provider ? Fall Risk ? Fall History? Have you had any falls with injury in the past year? ?No . ? Have you had two or more falls in the past year? ?No . ? Fall Risk Assessment: ?No falls in the past year . ? HRA filled out by the patient, reviewed by Provider and scanned. ? SWV ? Balance? Romberg ?negative . ? Tandem walk ?-unable ? Walk and Turn ?Yes . ? Rise from sit to stand ?Yes . ?Vision? Corrective lens ?none ? Vision screen ? Up-to-date, sees Dr. Hanna, has had cataract surgery done ?Hearing? Whisper test ?- fail whispered voice test, does not want to wear hearing aid. ?Written Plan?Completed. See Patient Documents.? 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 Mother No problems noted. Maternal Aunt No problems noted. Maternal Uncle No problems noted. Social History Household Members: None Housing: House Are you a primary primary care sales representative to a significant other at home: No Do you presently have visiting nurse or other home services: No Alcohol intake: current Alcohol intake frequency: does not drink Alcohol type: beer and wine Patient Tobacco Use Status: Never used Tobacco e-Cigarette/Vaping Use: Never Used Second Hand Smoke Exposure: No service: No Current occupational status: retired Cognitive needs: No Hearing needs: No Vision needs: Yes Questionnaire Medicare Wellness Checkup What is your age?: 80 or older What gender do you identify with?: female During the past 4 weeks, how much have you been bothered by emotional problems such as feeling anxious, depressed, irritable, sad or downhearted, and blue?: slightly During the past 4 weeks, has your physical & emotional health limited your social activities with family, friends, neighbors, or groups?: not at all During the past 4 weeks, how much bodily pain have you generally had?: mild pain During the past 4 weeks, was someone available to help you if you needed & wanted help?: yes, as much as I wanted During the past 4 weeks, what was the hardest physical activity you could do for at least 2 minutes?: heavy Can you get to places out of walking distance without help? (For eg., can you travel alone on buses, taxis or drive your car?): Yes Can you go shopping for groceries or clothes without someone's help?: Yes Can you prepare your own meals?: Yes Can you do your housework without help?: Yes Because of any health problems, do you need the help of another person with your personal care needs such as eating, bathing, dressing or getting around the house?: No Can you handle your own money without help?: Yes During the past 4 weeks, how would you rate your health in general?: good During the past 4 weeks how have things been going for you?: pretty well Are you having difficulties driving your car?: no Do you always fasten your seat belt when you are in a car?: yes, usually During past 4 weeks, have you been bothered by the following: never: Falling or dizzy when standing up, Sexual problems?, Trouble eating well?, Teeth or denture problems? and Problems using the telephone? and sometimes: Tiredness or fatigue? Have you fallen 2 or more times in the past year?: No Are you afraid of falling?: No Are you a smoker?: no During the past 4 weeks, how many drinks of wine, beer, or other alcoholic beverages did you have?: no alcohol at all Do you exercise for about 20 minutes 3 or more times a week?: yes, most of the time Have you been given information to help with the following?: yes: Hazards in your house that might hurt you? and yes: Keeping track of your medications? How often do you have trouble taking medicines the way you have been told to take them?: I always take medicine as prescribed How confident are you that you can control & manage most of your health problems?: very confident What is your race?: White Mini Mental State Exam (MMSE) Orientation What is the (year) (season) (date) (day) (month)?: year (2023), season (Fall), date (09/13/2024), day (Friday) and month (September) Where are we (state) (county) (town or city) (hospital) (floor)?: state ([place] ([place]), town or city ([place]) and hospital/clinic ([facility]) Score Score: 9 Activity of Daily Living Bathing - sponge bath, tub bath or shower: receives no assistance (gets in/out by self, if usual bathing means Dressing - getting clothes from closets & drawers, including inner/outer garments & fasteners.: gets clothes & gets completely dressed without help Toileting - going to the 'toilet room' for urine/bowel elimination & cleaning self/arranging clothes: goes to toilet room, cleans self, arranges clothes without help Transfer: moves in & out of bed and chair without help (may use support object) Continence: has occasional 'accidents' Feeding: feeds self without help Total Score: 0 Information obtained from: patient Using telephone: independent Traveling: independent Shopping: independent Preparing meals: independent Housework: independent Taking medicine: independent Managing money: independent PHQ-9 Over the last 2 weeks, how often have you been bothered by any of the following problems? 1. Little interest or pleasure in doing things: not at all 2. Feeling down, depressed, or hopeless: not at all 3. Trouble falling or staying asleep, or sleeping too much: not at all 4. Feeling tired or having little energy: not at all 5. Poor appetite or overeating: not at all 6. Feeling bad about yourself - or that you are a failure or have let yourself or your family down: not at all 7. Trouble concentrating on things, such as reading the newspaper or watching television: not at all 8. Moving or speaking so slowly that other people could have noticed. Or the opposite - being so fidgety or restless that you have been moving around a lot more than usual: not at all 9. Thoughts that you would be better off or of hurting yourself in some way: not at all Total score: 0 Depression Screening Interpretation: Negative Depression Screening Done: Yes 69945 - PHQ-9 Billing: Yes Source: Developed by Drs. Kenneth Chu, Claudia Rausch, Mat Crowder and colleagues, with an educational manju from [employer]. Physical Exam Vital Signs: Last Vital Signs Pulse 93 09/13/24 10:37 BP 142/84 H 09/13/24 10:37 Pulse Ox 98 09/13/24 10:37 Oxygen Delivery Method Room Air 09/13/24 10:37 BMI result Body Mass Index 23.1 Assessment & Plan Assessment & Plan (1) Encounter for subsequent annual wellness visit (AWV) in Medicare patient: Code(s): Z00.00 - Encounter for general adult medical examination without abnormal findings Plan: Medical wellness checklist reviewed, discussed with patient and updated. Up-to-date with all her vaccines but does not want to get a flu or the COVID booster (2) Paroxysmal atrial fibrillation: Code(s): I48.0 - Paroxysmal atrial fibrillation Plan: Continue apixaban 5 mg 1 tablet twice a day and metoprolol succinate 25 mg daily (3) Current use of long-term anticoagulation: Code(s): Z79.01 - correction (current) use of anticoagulants Plan: Currently on apixaban 5 mg twice a day (4) Recurrent UTI: Code(s): N39.0 - Urinary tract infection, site not specified Plan: Followed by Urology currently on probiotic (5) Statin intolerance: Comment: muscle cramping /pain with simvastatin and atorvastatin Code(s): Z78.9 - Other specified health status Plan: Unable to tolerate statin, not want to try any further medication, developed severe muscle pains and weakness when she took statins (6) Dyslipidemia: Code(s): E78.5 - Hyperlipidemia, unspecified Plan: Reinforced importance of following a low-cholesterol diet, staying active, does not want to take any statin will try any other medication (7) Osteopenia of left femoral neck: Code(s): M85.852 - Other specified disorders of bone density and structure, left thigh Plan: Fall precautions discussed with patient. Does not want to do further testing. Continue with vitamin-D 3 supplements and taking adequate calcium from dietary sources Quality Reporting (2019) Depression/Bipolar (159/160/161/177) PHQ-9: Total score: 0 Coding Level of Care Code Medicare Subsequent (G0439) Diagnoses Encounter for subsequent annual wellness visit (AWV) in Medicare patient Z00.00 Paroxysmal atrial fibrillation I48.0 Current use of long-term anticoagulation Z79.01 Recurrent UTI N39.0 Statin intolerance Z78.9 Dyslipidemia E78.5 Osteopenia of left femoral neck M85.852 CPT Codes Advance Care Planning - Advance Care Planning discussion: On file, no changes ([id number]) Advance Care Planning - Time spent: 1-15 minutes, on File ([id number]) Additional Codes PHQ-9 - 40578 - PHQ-9 Billing: Yes ([id number]) Advance Care Planning Advance Care Planning discussion: On file, no changes Date of discussion: 09/13/24 Who was present: Patient Forms completed: Health Care Proxy and MOLST Time spent: 1-15 minutes, on File Actual minutes spent: 2
[2024-09-13 10:37] VITALS: BP 142/84; PULSE 93; O2SAT 98; BMI 23.1
== END 2024-09-13 11:24 | disposition home or self-care (01) ==
PROVIDERS: PCP Internal Medicine; Visit Provider Internal Medicine
DX: Z00.00 Encounter for general adult medical examination without abnormal findings (principal); I48.0 Paroxysmal atrial fibrillation; Z79.01 Long term (current) use of anticoagulants; N39.0 Urinary tract infection, site not specified; Z78.9 Other specified health status; E78.5 Hyperlipidemia, unspecified; M85.852 Other specified disorders of bone density and structure, left thigh

== ENCOUNTER → 2024-09-13 09:28 | Outpatient (BNVA) | payer MEDICARE, SELFPAY | PROVIDERS: PCP Internal Medicine; Visit Provider Internal Medicine | DX: Z00.00 Encounter for general adult medical examination without abnormal findings (principal); I48.0 Paroxysmal atrial fibrillation; N39.0 Urinary tract infection, site not specified; E78.5 Hyperlipidemia, unspecified; M85.852 Other specified disorders of bone density and structure, left thigh; Z78.9 Other specified health status; Z79.01 Long term (current) use of anticoagulants | CPT/HCPCS: 96127 ==

== ENCOUNTER 2024-10-13 11:07 | Outpatient (AMB) | payer MEDICARE, SELFPAY ==
--- NOTE | 2024-10-13 11:10 | MHC.OFFWIV ---
Intake Vital Signs 10/13/24 11:14 Weight 146 lb BP 140/80 H Blood Pressure Location Rt brachial Position Sitting Pulse 80 Pulse Source Pulse Oximeter Pulse Oximetry (%) 98 Oxygen Delivery Method Room Air Intake Visit Reasons: EP-lower back & rt side hip pain Intake Note: Patient here for looking to get a xray of the lower back due to sciatic pain that has been present since june. Pt would like to have xray report faxed to [phone] Patient Tobacco Use Status: Never used Tobacco Allergies nitrofurantoin Adverse Reaction (Severe, Verified 10/13/24 11:15) Diarrhea atorvastatin Adverse Reaction (Intermediate, Verified 10/13/24 11:15) muslce pain simvastatin Adverse Reaction (Intermediate, Verified 10/13/24 11:15) muscle pain Do you need a note to return to daycare/school/sports/work: No HPI HPI Comments History of Present Illness Details Patient is an 84-year-old female complaining of right sided low back pain that radiates into her right buttock and right leg since June. She was doing a lot of yard work which she believes exacerbated it. She states she thinks it is sciatica but would like an x-ray. She has tried the following to treat her symptoms, excercises and ice. She denies any loss of control or bladder or bowels. Has been seeing a chiropracter for care with some relief. She is asking for an x-ray, and wants us to fax it to her chiropractor and gave us the phone number. 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 Mother No problems noted. Maternal Aunt No problems noted. Maternal Uncle No problems noted. Social History Household Members: None Housing: House Are you a primary transition of care specialist to a significant other at home: No Do you presently have visiting nurse or other home services: No Alcohol intake: current Alcohol intake frequency: does not drink Alcohol type: beer and wine Patient Tobacco Use Status: Never used Tobacco e-Cigarette/Vaping Use: Never Used Second Hand Smoke Exposure: No service: No Current occupational status: retired Cognitive needs: No Hearing needs: No Vision needs: Yes Review of Systems Const All systems reviewed & are unremarkable except as noted in HPI and below Physical Exam Vital Signs: Last Vital Signs Pulse 80 10/13/24 11:14 BP 140/80 H 10/13/24 11:14 Pulse Ox 98 10/13/24 11:14 Oxygen Delivery Method Room Air 10/13/24 11:14 Const General: cooperative, healthy appearing and comfortable Orientation/consciousness: patient oriented x3 HEENT Head: Yes normal to inspection and Yes normocephalic General nose exam: Normal external nose present Face and sinus: Yes normal facial exam Eyes General: appearance normal, both eyes and all related structures Resp Effort & Inspection: normal respiratory effort and able to speak in complete sentences General: Yes no CVA tenderness Back/Spine/Pelvis Back: no CVA tenderness Cervical Spine: cervical ROM normal and No Cervical spine tenderness Thoracic/Lumbar Spine: thoracic and lumbar spine normal to inspection, No thoracic spinal tenderness, No lumbar spinal tenderness and No straight leg raise positive Neuro General: patient oriented x3 Extrem Other: Straight leg raise test negative on right; Straight leg raise test negative on left; Reflexes normal ankle and knee bilaterally; motor strength normal bilaterally Assessment & Plan Assessment & Plan (1) Sciatica of right side: Code(s): M54.31 - Sciatica, right side Plan: Vital signs stable, patient well-appearing and physical exam unremarkable. We will order an x-ray and have it faxed to her chiropractor, as requested. Patient was instructed to rest and use ice. She can not take any NSAIDs as she is on Eliquis. Orders: Orders XR lumbar spine 4V min Today M54.31 - Sciatica, right side Coding Level of Care Code Est Pt Level 4 (02354) Diagnoses Sciatica of right side M54.31
[2024-10-13 11:14] VITALS: BP 140/80; PULSE 80; O2SAT 98
== END 2024-10-13 11:46 | disposition home or self-care (01) ==
PROVIDERS: PCP Internal Medicine; Visit Provider Physician Assistant
DX: M54.31 Sciatica, right side (principal)

== ENCOUNTER 2024-10-13 11:07 | Outpatient (REF) | payer MEDICARE, SELFPAY ==
--- NOTE | ~2024-10-13 | XR_ITS ---
EXAMINATION: XR LUMBOSACRAL SPINE CLINICAL INFORMATION: M54.31 - Sciatica, right side COMPARISON: None available. TECHNIQUE: Three views of the lumbosacral spine. FINDINGS: Multilevel marginal osteophyte formation and endplate sclerosis and decreased intervertebral disc height more conspicuous at L5-S1. Grade 1 anterolisthesis L4-5. Grade 1 retrolisthesis L3-4 and likely L2-3. Superior endplate compression deformity representing 30% volume loss without retropulsion at T12. Osteopenia versus osteoporosis. Levoconvex curvature apex at L3-4. No lytic or blastic lesions. Facet joint hypertrophy at L4-5 and L5-S1. Degenerative changes in the right coxofemoral joint. XR/XR lumbar spine 2-3V IMPRESSION: Multilevel thoracolumbar spondylosis resulting in grade 1 anterolisthesis L4-5 and grade 1 retrolisthesis L3-4 and likely L2-3 levels. Old superior endplate compression deformity T12. Osteoarthrosis, right coxofemoral joint. Electronically signed by: Ramesh Almaguer MD 10/13/2024 01:00 PM PEYMAN HENDRICKS
== END 2024-10-13 11:08 | disposition home or self-care (01) ==
LOC: HO.HMGCX 11:07
PROVIDERS: PCP Internal Medicine; Visit Provider Physician Assistant
DX: M54.31 Sciatica, right side (principal); M47.815 Spondylosis without myelopathy or radiculopathy, thoracolumbar region; M43.16 Spondylolisthesis, lumbar region; M16.11 Unilateral primary osteoarthritis, right hip; M48.54XA Collapsed vertebra, not elsewhere classified, thoracic region, initial encounter for fracture
CPT/HCPCS: 72100; 99212

== ENCOUNTER → 2024-10-13 11:41 | Outpatient (BNV) | payer MEDICARE, SELFPAY | PROVIDERS: PCP Internal Medicine; Visit Provider Radiology Diagnostic Radiology | DX: M47.815 Spondylosis without myelopathy or radiculopathy, thoracolumbar region (principal) | CPT/HCPCS: 72100 ==

== ENCOUNTER 2024-10-14 11:02 | Outpatient (AMB) | payer MEDICARE, SELFPAY ==
[2024-10-14 11:09] VITALS: BP 140/82; PULSE 82; BMI 23.5
--- NOTE | 2024-10-14 11:09 | A.OFFVIS_ITS ---
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 coagulans)) cells PO cholecalciferol (vitamin D3) 50 mcg PO TID metoprolol succinate ER 25 mg PO DAILY sulfamethoxazole-trimethoprim 400-80 mg (Bactrim) 1 tab PO DAILY HPI Comments Details: Bailey comes for follow-up. She has no new neurologic symptoms. No new cardiac symptoms. Denies any prolonged palpitation irregular heartbeat. Denies any exertional chest pain or shortness of breath. No lightheadedness, syncope. No bleeding issues or medication intolerance. Her main complaint currently is related to musculoskeletal system related to sciatica. 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 Mother No problems noted. Maternal Aunt No problems noted. Maternal Uncle No problems noted. Social History Household Members: None Housing: House Are you a primary long term care administrator to a significant other at home: No Do you presently have visiting nurse or other home services: No Alcohol intake: current Alcohol intake frequency: does not drink Alcohol type: beer and wine Patient Tobacco Use Status: Never used Tobacco e-Cigarette/Vaping Use: Never Used Second Hand Smoke Exposure: No service: No Current occupational status: retired Cognitive needs: No Hearing needs: No Vision needs: Yes Review of Systems Const Denies chills, Denies fatigue, Denies fever(s), Denies frequent falls, Denies weakness, Denies weight gain and Denies weight loss ENT Denies dizziness Card Denies chest pain, Denies leg edema, Denies lightheadedness, Denies palpitations, Denies dyspnea, Denies dyspnea on exertion, Denies orthopnea and Denies other (loss of consciousness) Resp Denies cough, Denies dyspnea and Denies dyspnea on exertion GI Denies hematochezia and Denies change in stool character Musc Denies abnormal gait, Denies muscle weakness, Denies numbness, Denies radiating pain into limb and Denies tingling Neuro Denies abnormal gait, Denies dizziness, Denies frequent falls, Denies numbness, Denies tingling and Denies weakness Endo Denies fatigue and Denies palpitations Physical Exam Vital Signs: Last Vital Signs Pulse 82 10/14/24 11:09 BP 140/82 H 10/14/24 11:09 BMI result Body Mass Index 23.5 Const General: cooperative, comfortable, no acute distress, alert, awake, Physically active and well groomed Nutritional Appearance: average body habitus Orientation/consciousness: patient oriented x3 Limitations: no limitations Neck Neck: Yes trachea midline, Yes supple and Yes no JVD Resp Effort & Inspection: normal respiratory effort Auscultation: clear to auscultation bilaterally Cardio Jugular venous distension: no JVD Palpation: normal PMI Rate: regular rate Rhythm: regular rhythm Heart sounds: S1 normal heart sound present, S2 normal heart sound present, no click, no gallops and no murmurs GI Auscultation: normal bowel sounds Skin General skin exam: no rashes or lesions noted Neuro General: patient oriented x3 and no focal motor deficits Extrem General: Yes no clubbing, cyanosis or edema Assessment & Plan Assessment & Plan (1) Paroxysmal atrial fibrillation: Code(s): I48.0 - Paroxysmal atrial fibrillation Category: Medical Plan: Paroxysmal atrial fibrillation without any obvious clinical recurrence at this point time. 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 Importance of continued oral anticoagulation therapy was discussed. Continue Eliquis 5 mg b.i.d.. Quarterly renal function test should be pursued. Continue current metoprolol therapy. Importance of avoiding recurrent atrial fibrillation discussed. For now continue rhythm control approach. No need for antiarrhythmic drug therapy. Advised to avoid stimulants. Stress mitigation strategies was discussed advised to maintain activity level as tolerated. Will follow up in the clinic in 1 year's time, sooner p.r.n.. Thank you for allowing me to partake in his care Coding Level of Care Code Est Pt Level 4 (57807) Complex EM visit Add On G2211 Diagnoses Paroxysmal atrial fibrillation I48.0
== END 2024-10-14 11:30 | disposition home or self-care (01) ==
PROVIDERS: PCP Internal Medicine; Visit Provider Internal Medicine Cardiovascular Disease
DX: I48.0 Paroxysmal atrial fibrillation (principal)
CPT/HCPCS: 99214; G2211

== ENCOUNTER → 2024-10-14 11:02 | Outpatient (BNVA) | payer MEDICARE, SELFPAY | PROVIDERS: PCP Internal Medicine; Visit Provider Internal Medicine Cardiovascular Disease | DX: I48.0 Paroxysmal atrial fibrillation (principal) | CPT/HCPCS: 99212 ==

== ENCOUNTER 2024-10-15 13:49 | Outpatient (AMB) | payer MEDICARE, SELFPAY ==
--- NOTE | 2024-10-15 14:06 | A.OFFVIS_ITS ---
Intake Visit Reasons: 6m follow up Intake Note: Patient is Present for Follow Up UTI Urology Medication: None Antibiotic Allergies: Nitrofuratoin Blood Thinners: Eliquis Pt Sitter Required: No Accompanied by: Self / Same As Patient Allergies nitrofurantoin Adverse Reaction (Severe, Verified 10/15/24 14:27) Diarrhea atorvastatin Adverse Reaction (Intermediate, Verified 10/15/24 14:27) muslce pain simvastatin Adverse Reaction (Intermediate, Verified 10/15/24 14:27) muscle pain Medication List - Last Reconciled 10/15/24 by Mackenzie Turk MD apixaban (Eliquis) 5 mg PO BID Bacillus coagulans (Probiotic (B. coagulans)) cells PO cholecalciferol (vitamin D3) 50 mcg PO TID metoprolol succinate ER 25 mg PO DAILY sulfamethoxazole-trimethoprim 400-80 mg (Bactrim) 1 tab PO DAILY HPI Comments Details: 10/15/24--Bailey is here for follow up for recurrent UTIs. She completed a suppressive course of antibiotics, Bactrim. office cystoscopy was done on 03/25/24 and Cystoscopy findings: Mild to moderate bladder wall thickening, mild inflammatory changes consistent with cystitis, no suspicious bladder lesions visualized. History of breast cancer unable to use Estrace cream. Discussed cranberry use, juice or supplement. She states she had been doing very well until about one week ago and called the office and Dr. Ayala called in a sulfa abx for bid for 7 days. I will have her cont Bactrim SS daily for 10 days. FU in 6 months Review of chart: 03/25/24--Bailey is here for office cystoscopy. She has had recurrent UTIs. She completed a suppressive course of antibiotics, Bactrim. She states that her urinary symptoms have improved. Cystoscopy findings: Mild to moderate bladder wall thickening, mild inflammatory changes consistent with cystitis, no suspicious bladder lesions visualized. History of breast cancer unable to use Estrace cream. Discussed cranberry use, juice or supplement. Follow-up in 6 months. 02/02/2024--patient is asymptomatic urine nitrite positive reviewed prior urine cultures both Klebsiella. Discussed with the patient she may have bacteria colonization however will hold on cysto today. Reschedule office cystoscopy. Discussed renal ultrasound 12/05/23--Mild bilateral mild caliectasis without rupinder hydronephrosis. No renal calculi. 11/07/23--Juliet is an 83 year old female who is here for evaluation due to dysuria. The patient states she had an acute episode of increased urinary frequency and pain with urination so went the ED on 09/08/2023. A urine culture was sent which came back less than 10,000 colonies. She followed up with her PCP and was placed on Bactrim and Pyridium which she stated helped her symptoms. Past Medical history -history of breast cancer, previous bladder suspension. The patient states she does have urinary leakage associated with urgency. She states that she has had about 2 UTIs that she can remember in her life time. Examination: Pelvic exam small urethral prolapse 14 Azeri catheter-PVR 125 mL UA: Positive leukocytes, nitrate positive. I have discussed workup to include evaluation of the upper tracts and FU for cystoscopy evaluation. Urine for cytology. Urine culture. 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 Mother No problems noted. Maternal Aunt No problems noted. Maternal Uncle No problems noted. Social History Household Members: None Housing: House Are you a primary daycare worker to a significant other at home: No Do you presently have visiting nurse or other home services: No Alcohol intake: current Alcohol intake frequency: does not drink Alcohol type: beer and wine Patient Tobacco Use Status: Never used Tobacco e-Cigarette/Vaping Use: Never Used Second Hand Smoke Exposure: No service: No Current occupational status: retired Cognitive needs: No Hearing needs: No Vision needs: Yes Review of Systems Const All systems reviewed & are unremarkable except as noted in HPI and below Reports no additional complaints Eyes Reports no additional complaints ENT Reports no additional complaints Card Reports no additional complaints Resp Reports no additional complaints GI Reports no additional complaints Reports as per HPI Musc Reports no additional complaints Skin/Breast Reports system reviewed and no additional complaints, except as documented Neuro Reports no additional complaints Psych Reports no additional complaints Endo Reports no additional complaints Alexandre/Lymph Reports no additional complaints Aller/Immun Reports no additional complaints Results AMB Urinalysis, Automated UA Leukoctes 70 Johanna/uL Last Edit by Saloni Lin [facility] on 10/15/24 14:28 UA Nitrite Negative Last Edit by Saloni Lin, [facility] on 10/15/24 14:28 UA Urobilinogen 0.2 mg/dL Last Edit by Saloni Lin [facility] on 10/15/24 14:2 8 UA Protein 0 mg/dL Last Edit by Saloni Lin [facility] on 10/15/24 14:28 UA pH 6.0 Last Edit by Saloni Lin, [facility] on 10/15/24 14:28 UA Blood 200 Jose/uL Last Edit by Saloni Lin, [facility] on 10/15/24 14:28 UA Specific Coward 1.010 Last Edit by Saloni Lin [facility] on 10/15/24 14: 28 UA Ketone Negative Last Edit by Saloni Lin [facility] on 10/15/24 14:28 UA Bilirubin 0 mg/dL Last Edit by Saloni Lin, [facility] on 10/15/24 14:28 UA Glucose 0 mg/dL Last Edit by Saloni Lin [facility] on 10/15/24 14:28 Results Reviewed Results Reviewed: Laboratory Last Values Urine pH (Auto) 6.0 10/15/24 14:27 Specific Coward (Auto) 1.010 10/15/24 14:27 Urine Protein (Auto) 0 mg/dL 10/15/24 14:27 Glucose (UA)(Auto) 0 mg/dL 10/15/24 14:27 Urine Ketones (Auto) Negative 10/15/24 14:27 Urine Blood (Auto) 200 Jose/uL 10/15/24 14:27 Urine Nitrite (Auto) Negative 10/15/24 14:27 Urine Bilirubin (Auto) 0 mg/dL 10/15/24 14:27 Urine Urobilinogen (Auto) 0.2 mg/dL 10/15/24 14:27 Leukocyte Esterase (Auto) 70 Johanna/uL 10/15/24 14:27 Assessment & Plan Assessment & Plan (1) Urethral prolapse: Code(s): N36.8 - Other specified disorders of urethra Category: Medical (2) Recurrent UTI: Code(s): N39.0 - Urinary tract infection, site not specified Category: Medical (3) Chronic cystitis: Code(s): N30.20 - Other chronic cystitis without hematuria Category: Medical Plan Follow up for recurrent UTIs. She completed a suppressive course of antibiotics, Bactrim. office cystoscopy was done on 03/25/24 and Cystoscopy findings: Mild to moderate bladder wall thickening, mild inflammatory changes consistent with cystitis, no suspicious bladder lesions visualized. History of breast cancer unable to use Estrace cream. Discussed cranberry use, juice or supplement. She states she had been doing very well until about one week ago and called the office and Dr. Ayala called in a sulfa abx for bid for 7 days. I will have her cont Bactrim SS daily for 10 days. FU in 6 months Orders: Orders AMB Urinalysis Automated Today Z13.9 - Encounter for screening, unspecified Medications: New sulfamethoxazole-trimethoprim 400-80 mg (Bactrim) 1 tab PO DAILY 10 tabs 0RF Patient Instructions: The patient had an opportunity to ask questions regarding treatment plan. The patient expressed understanding and agreement with the above treatment plan. The patient is aware they should contact our office by phone for worsening of their current condition or the appearance of new symptoms. Compliance is encouraged with any medications and followup testing that is ordered. It is a privilege to be allowed the opportunity to participate in the urologic care of your patient. If you have any questions or concerns regarding treatment for the above conditions please do not hesitate to contact me. The office telephone contact is [phone]. This note is constructed in part using voice recognition software. While every effort has been made to ensure accuracy aerial hurricane hunter errors may have been included. Yours sincerely, Mackenzie Turk MD Coding Level of Care Code Est Pt Level 4 (78993) Diagnoses Urethral prolapse N36.8 Recurrent UTI N39.0 Chronic cystitis N30.20
== END 2024-10-15 14:40 | disposition home or self-care (01) ==
PROVIDERS: PCP Internal Medicine; Visit Provider Urology
DX: N36.8 Other specified disorders of urethra (principal); N39.0 Urinary tract infection, site not specified; N30.20 Other chronic cystitis without hematuria; Z13.9 Encounter for screening, unspecified
CPT/HCPCS: 99214

== ENCOUNTER → 2024-10-15 13:49 | Outpatient (BNVA) | payer MEDICARE, SELFPAY | PROVIDERS: PCP Internal Medicine; Visit Provider Urology | DX: N36.8 Other specified disorders of urethra (principal); N39.0 Urinary tract infection, site not specified; N30.20 Other chronic cystitis without hematuria | CPT/HCPCS: 81003; 99212 ==

== ENCOUNTER 2024-10-20 12:02 | Outpatient (REF) | payer MEDICARE, SELFPAY ==
--- NOTE | ~2024-10-20 | XR_ITS ---
EXAMINATION: XR HIP, RIGHT CLINICAL INFORMATION: M54.31 - Sciatica, right side COMPARISON: None available. TECHNIQUE: Two views of the right hip. FINDINGS: Subchondral cyst formation throughout the acetabulum and femoral head with asymmetric joint space narrowing and sclerotic margins of the articular surface. No acute cortical disruption or malalignment. Osteopenia versus osteoporosis. XR/XR hip RT min 2V IMPRESSION: Severe osteoarthrosis, right coxofemoral joint. Electronically signed by: Ramesh Almaguer MD 10/20/2024 12:57 PM [facility]
== END 2024-10-20 12:03 | disposition home or self-care (01) ==
LOC: HO.HMGCX 12:02
PROVIDERS: PCP Internal Medicine; Visit Provider Physician Assistant
DX: M54.31 Sciatica, right side (principal)
CPT/HCPCS: 73502

== ENCOUNTER → 2024-10-20 12:08 | Outpatient (BNV) | payer MEDICARE, SELFPAY | PROVIDERS: PCP Internal Medicine; Visit Provider Radiology Diagnostic Radiology | DX: M16.11 Unilateral primary osteoarthritis, right hip (principal) | CPT/HCPCS: 73502 ==

== ENCOUNTER 2024-10-31 10:53 | Inpatient (IN) | payer MEDICARE, SELFPAY ==
--- NOTE | ~2024-10-31 | XR_ITS ---
CLINICAL HISTORY: Generalized weakness 1 view chest x-ray Comparison: CR/SR - CHEST 2 VIEWS - 02/12/19 21:13 EDT Findings: No consolidation or effusion. Stable eventration lateral left hemidiaphragm. Normal size heart. No acute fracture. IMPRESSION: 1. No acute findings. This document has been electronically signed by: Wilfredo Leonardo MD on 10/31/2024 12:52:18
--- NOTE | ~2024-10-31 | XR_ITS ---
CLINICAL HISTORY: Pain 4 view, pelvis and right hip Comparison: CR/SR - XR HIP RT MIN 2V - 10/20/24 12:19 EST Findings: Similar severe degenerative arthritis right hip with full-thickness chondral loss, [id number] appearance, hypertrophic changes of the femoral head greater than acetabulum and extensive subchondral cystic changes also greater to the femoral head. Mild buttressing of the medial femoral neck. No acute fracture or dislocation. Mild degenerative arthritis left hip. Intact pubic rami and SI joints. Regional soft tissues unremarkable. Impression: Stable severe degenerative arthritis right hip. This document has been electronically signed by: Wilfredo Leonardo MD on 10/31/2024 12:54:45
[2024-10-31 11:16] VITALS: BP 148/78; PULSE 86; O2SAT 99
--- NOTE | 2024-10-31 11:23 | ECG_ITS ---
Test Reason : weakness Blood Pressure : */* mmHG Vent. Rate : 76 BPM Atrial Rate : 304 BPM P-R Int : * ms QRS Dur : 74 ms QT Int : 402 ms P-R-T Axes : * 45 47 degrees QTcB Int : 452 ms Atrial flutter with 4:1 A-V conduction Abnormal ECG When compared with ECG of 08-Dec-2023 17:14, No significant changes seen Referred By: Stevie Reynolds Electronically Signed By: CECILIA SORTO
--- NOTE | 2024-10-31 11:25 | ED.GENADULT ---
HPI - General Adult General Chief complaint: General Medical Stated complaint: WEAK,HIGH BP 214/92,148/78 NOW PER EMS Time Seen by Provider: 10/31/24 11:13 Source: patient, EMS and old records reviewed Mode of arrival: EMS Limitations: no limitations History of Present Illness ED Provider: DR. Reynolds HPI narrative: 84-year-old female brought in by EMS for evaluation of generalized weakness since this morning. Patient in the emergency department stated that she lives home by herself, has been having right hip pain and was diagnosed with osteoarthritis that the patient is receiving rehab and physical therapy for and scheduled to see an orthopedic next month to evaluate her problem. Patient with known history of hypertension and stroke patient stated that she is compliant with her medication found to be hypertensive this morning at home as per EMS blood pressure was 148/78 the only patient's complaint is feeling generalized weakness and nonspecific dizziness, patient is acting very anxious toward EMS and the staff in the emergency department. Otherwise no headache, no blurry vision. Related Data Home Medications ?Medication ?Instructions ?Recorded ?Confirmed Bacillus coagulans 1 billion cell cell PO 12/29/23 10/15/24 chewable tablet (Probiotic (B. coagulans)) cholecalciferol (vitamin D3) 50 50 mcg PO TID 10/14/24 10/15/24 mcg (2,000 unit) tablet Previous Rx's ?Medication ?Instructions ?Recorded apixaban 5 mg tablet (Eliquis) 5 mg PO BID #180 tabs 01/13/24 metoprolol succinate 25 mg 25 mg PO DAILY #90 tabs 10/01/24 tablet,extended release 24 hr sulfamethoxazole 400 1 tab PO DAILY #10 tabs 10/15/24 mg-trimethoprim 80 mg tablet (Bactrim) Allergies Allergy/AdvReac Type Severity Reaction Status Date / Time nitrofurantoin AdvReac Severe Diarrhea Verified 10/31/24 11:29 atorvastatin AdvReac Intermediate muslce pain Verified 10/31/24 11:29 simvastatin AdvReac Intermediate muscle pain Verified 10/31/24 11:29 Review of Systems Review of Systems: All other systems are reviewed and are negative Constitutional: Reports as per HPI and Reports no additional constitutional complaints Eyes: Reports as per HPI and Reports no additional eye complaints Reports system reviewed and no additional complaints, except as documented Cardiovascular: Reports as per HPI and Reports no additional cardiovascular complaints Respiratory: Reports as per HPI and Reports no additional respiratory complaints Gastrointestinal: Reports as per HPI and Reports no additional gastrointestinal complaints Genitourinary: Reports no additional female genitourinary complaints Musculoskeletal: Reports no additional musculoskeletal complaints Skin/Breast: Reports system reviewed and no additional complaints, except as docu Psychiatric: Reports no additional psychiatric complaints Endocrine: Reports no additional endocrine complaints Hematologic/Lymphatic: Reports no additional hematologic/lymphatic complaints Allergic/Immunologic: Reports no additional allergic/immunologic complaints Reports system reviewed and no additional complaints, except as documented and Reports Abnormal speech present [facility] Past Medical History Medical History Persistent atrial fibrillation Paroxysmal atrial fibrillation Hematuria Dysuria History of COVID-19 Sciatica of right side Cataract Menopause Statin intolerance Dyslipidemia 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 Mother No problems noted. Maternal Aunt No problems noted. Maternal Uncle No problems noted. Social History Social History Household Members: None Housing: House Are you a primary behavioral health care manager to a significant other at home: No Do you presently have visiting nurse or other home services: No Alcohol intake: current Alcohol intake frequency: does not drink Alcohol type: beer and wine Patient Tobacco Use Status: Never used Tobacco e-Cigarette/Vaping Use: Never Used Second Hand Smoke Exposure: No Advance Directives: No Advance Directives Information Provided: Yes service: No Current occupational status: retired Cognitive needs: No Hearing needs: No Vision needs: Yes Physical Exam ED Vital Signs: Vital Signs - 24 hr 10/31/24 11:28 Pulse Rate 78 Respiratory Rate 18 Blood Pressure 139/66 Pulse Oximetry 100 Oxygen Delivery Method Room Air BMI result Body Mass Index 24.1 Vital signs have been reviewed and appear to be correct. Blood pressure elevated. Heart rate normal. Respiratory rate normal. Temperature normal. Oxygen saturation normal. Appearance: Alert. Oriented X3. No acute distress. Head: Normal external exam. Normocephalic. Atraumatic. No Watts signs noted. No raccoon eyes noted Eyes: PERRLA. EOMI. Conjunctiva and sclera normal. Eyelids normal. ENT: TM's Normal. Pharynx normal. Uvula midline. Moist mucous membranes. No trismus noted. No drooling noted. No muffled voice noted. Neck: Normal inspection. Neck supple. FROM. No adenopathy. Thyroid Normal. No meningeal signs. No neck mass noted. CVS: Normal heart rate and rhythm. Heart sound normal. No murmurs noted. Pulses normal throughout. Respiratory: No respiratory distress. Painless inspiration. Breath sounds normal. No wheezes/rales/rhonchi noted. Chest nontender. No accessory muscle usage noted or decreased air movement noted. Abdomen: Soft and nontender. Bowel sounds normal in all 4 quadrants. No distention noted. No organomegaly noted. No visible injury noted. Back: No CVA tenderness. Full range of motion noted. Skin: Skin warm and dry. Normal skin color. Normal skin turgor. No rashes/lesions/lacerations noted. Extremities: No lower extremity edema. Extremities exhibit normal range of motion. Extremities nontender. Neuro: Oriented X 3. Cranial nerve exam: II-XII are grossly intact No motor deficit. No sensory deficit. Reflexes normal. Course Reevaluation(s) Reevaluation #1: UTI not responding to 2 courses of oral outpatient antibiotic, is here today for generalized weakness UA is showing refractory UTI since patient just finished oral course of 2 antibiotics will start the patient on ceftriaxone and consider admission. As discussed with the hospitalist to obtain inpatient Ortho consult for further evaluation of severe right hip arthritis and pain. Time: 13:54 Medications Administered Discontinued Medications Generic Name Dose Route Start Last Admin Trade Name Freq PRN Reason Stop Dose Admin Ceftriaxone Sodium 1 gm 10/31/24 13:46 10/31/24 13:57 Ceftriaxone Sodium 1 Gm Vial IVPUSH 10/31/24 13:47 1 gm ONCE ONE Administration Morphine Sulfate 1 mg 10/31/24 11:30 10/31/24 12:19 Morphine Sulfate 2 Mg/Ml Cartridge IVPUSH 10/31/24 11:31 Not Given ONCE ONE Protocol Medical Decision Making Differential Diagnosis Differential Diagnoses: The differential diagnosis associated with the presentation includes (UTI, right hip fracture, right hip arthritis, electrolyte derangement, severe anemia, anxiety.) Admission/Observation Consideration of admission/observation: Escalation of care including admission/observation considered Consult Healthcare Provider Management of the patient was discussed with: Hospitalist (Dr. Collier) Lab Data MDM Lab Attestation statement: I reviewed the patient's lab results. 10/31/24 12:17 Labs: Lab Results 10/31/24 10/31/24 Range/Units 12:17 12:35 WBC 7.7 (4.8-10.8) X10*3/uL RBC 4.51 (4.20-5.50) X10*6/uL Hgb 13.0 (12.0-16.0) g/dl Hct 38.6 (37.0-47.0) % MCV 85.6 (80.0-98.0) fL MCH 28.8 (27.0-33.0) pg MCHC 33.7 (31.0-35.0) g/dl RDW 13.7 (11.0-16.0) % Plt Count 288 (160-400) X10*3/uL MPV 9.5 (9.4-12.3) fL Immature Gran % (Auto) 0.4 (0.0-0.4) % Neut % (Auto) 77.1 H (45-73) % Lymph % (Auto) 13.4 L (20-40) % Yancey % (Auto) 8.0 (2-11) % Eos % (Auto) 0.5 (0-4) % Baso % (Auto) 0.6 (0-2) % Lymph # (Auto) 1.0 L (1.2-4.9) X10*3/uL Yancey # (Auto) 0.6 (0.1-1.2) X10*3/uL Eos # (Auto) 0.0 (0.0-0.4) X10*3/uL Baso # (Auto) 0.1 (0.0-0.2) X10*3/uL Abs Immat Gran (auto) 0.03 (0.00-0.03) X10*3/uL Absolute Neuts (auto) 5.9 (2.0-8.3) x10*3/uL Absolute Nucleated RBC 0.000 (0.0-0.012) X10*3/uL Nucleated RBC % (auto) 0.0 (0.0-0.2) /100WBC PT 13.9 H (10.9-12.4) SEC INR 1.2 H (0.9-1.1) Troponin I High Sens 4.2 D (<3.5-17.0) ng/L B-Natriuretic Peptide 483 H (<100) pg/mL Urine Color Yellow Urine Appearance Clear Urine pH 8.5 (5.0-9.0) Ur Specific [place] 1.010 (1.005-1.025) Urine Protein 30 (1+) H (Neg-Trace) mg/dL Urine Glucose (UA) Negative (Negative) mg/dL Urine Ketones Trace (Negative) mg/dL Urine Blood Moderate (2+) H (Negative) Urine Nitrite Negative (Negative) Ur Leukocyte Esterase Large (3+) H (Negative) Urine RBC 11-20 H (0-2) /HPF Urine WBC 21-50 H (0-5) /HPF Ur Squamous Epith Cells 3-5 (0-2) /HPF Urine Bacteria None Seen (None Seen) Hyaline Casts 0-2 (0-2) /LPF Influenza Type A (PCR) NEGATIVE (Negative) Influenza Type B (PCR) NEGATIVE (Negative) RSV RNA Qual (PCR) NEGATIVE (Negative) SARS-CoV-2 RNA (RT-PCR) NEGATIVE (Negative) Independent Interpretation I performed an independent interpretation of an: Plain X-Ray (Chest/right hip x-ray: Stable severe degenerative arthritis right hip.) Radiology Impression Discussion of test interpretation with radiology: I have reviewed the radiologist's reading. Discharge Plan Discharge Clinical Impression: Recurrent UTI, Arthritis of right hip Patient Disposition: Admitted As Inpatient Print Language: Thai
[2024-10-31 11:28] VITALS: BP 139/66; PULSE 78; RESP 18; O2SAT 100; BMI 24.1
[2024-10-31 12:20] LABS: MANUAL DIFF FLAG NO
[2024-10-31 12:29] LABS: INTERNATIONAL NORM RATIO 1.2 (0.9-1.1); Prothrombin Time 13.9 SEC (10.9-12.4)
[2024-10-31 12:33] LABS: Basophils Absolute Auto 0.1 X10*3/uL (0.0-0.2); Basophils Percent Auto 0.6 % (0-2); Eosinophils Percent Auto 0.5 % (0-4); Hematocrit 38.6 % (37.0-47.0); Imm Gran Abs Auto 0.03 X10*3/uL (0.00-0.03); Imm Gran Pct Auto 0.4 % (0.0-0.4); Lymphocytes Percent Auto 13.4 % (20-40); Mean Corpuscular HGB Conc 33.7 g/dl (31.0-35.0); Mean Corpuscular Hemoglobin 28.8 pg (27.0-33.0); Mean Corpuscular Volume 85.6 fL (80.0-98.0); Mean Platelet Volume 9.5 fL (9.4-12.3); Monocytes Absolute Auto 0.6 X10*3/uL (0.1-1.2); Neutrophils Absolute Auto 5.9 x10*3/uL (2.0-8.3); Neutrophils Percent Auto 77.1 % (45-73); Platelet Count 288 X10*3/uL (160-400); Red Blood Count 4.51 X10*6/uL (4.20-5.50); Red Cell Distribution Width 13.7 % (11.0-16.0); White Blood Count 7.7 X10*3/uL (4.8-10.8)
[2024-10-31 12:41] LABS: Appearance Urine Clear; Color Urine Yellow; Glucose Urine UA Negative (Negative); Leukocyte Esterase Urine Large (3+) (Negative); Nitrite Urine Negative (Negative); PH 8.5 (5.0-9.0); UMIC TRIGGER UACC YES; Urine Blood Moderate (2+) (Negative); Urine Ketones Trace mg/dL (Negative); Urine Protein 30 (1+) mg/dL (Neg-Trace)
[2024-10-31 12:42] LABS: B Type Natriuretic Peptide 483 pg/mL (<100); Troponin-I High Sensitivity 4.2 ng/L (<3.5-17.0)
--- NOTE | 2024-10-31 12:42 | MHC.EDTECH ---
This PCT attempted to obtain orthostatic vitals on patient. Patient refused, I explained the purpose of orthostatic vital signs and she still refused stating she did not feel it was necessary.
[2024-10-31 12:43] LABS: Bacteria Urine None Seen (None Seen); Hyaline Casts Urine 0-2 /LPF (0-2); UACC Culture Trigger YES; WBC Urine 21-50 /HPF (0-5)
[2024-10-31 13:20] LABS: Influenza A PCR NEGATIVE (Negative); Influenza B PCR NEGATIVE (Negative); Resp Syncy Virus RNA Qual PCR NEGATIVE (Negative); SARS COV2 PCR INHOUSE NEGATIVE (Negative)
--- NOTE | 2024-10-31 13:56 | P.HPHOSP_ITS ---
History of Present Illness Date of Service: 10/31/24 Chief Complaint: Hip pain and not feeling well 84-year-old female with a history of PAF, recurrent UTIs, and osteoarthritis of the hip presents with not feeling well and her usual hip pain. She has experienced multiple UTIs since the beginning of the year and was most recently prescribed Bactrim on 10/26. Despite treatment, she still does not feel well. She denies fever, chills, or specific urinary symptoms. UA was positive, but she remains afebrile with a normal WBC count. She also complains of right hip pain, which is chronic and not new. She is scheduled to see Orthopedics next month for evaluation for a hip replacement. 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 Mother No problems noted. Maternal Aunt No problems noted. Maternal Uncle No problems noted. Surgical History S/P lumpectomy, left breast Hx of colonoscopy History of pubovaginal sling History of prolapse of bladder Social History Household Members: None Housing: House Are you a primary healthcare representative to a significant other at home: No Do you presently have visiting nurse or other home services: No Alcohol intake: current Alcohol intake frequency: does not drink Alcohol type: beer and wine Patient Tobacco Use Status: Never used Tobacco e-Cigarette/Vaping Use: Never Used Second Hand Smoke Exposure: No Advance Directives: No Advance Directives Information Provided: Yes Nutrition Risks: No Nutritional Risk service: No Current occupational status: retired Cognitive needs: No Hearing needs: No Vision needs: Yes Meds Allergies Allergy/AdvReac Type Severity Reaction Status Date / Time nitrofurantoin AdvReac Severe Diarrhea Verified 10/31/24 11:29 atorvastatin AdvReac Intermediate muslce pain Verified 10/31/24 11:29 simvastatin AdvReac Intermediate muscle pain Verified 10/31/24 11:29 Home Medications ?Medication ?Instructions ?Recorded ?Confirmed ?Last Taken ?Type cholecalciferol (vitamin D3) 50 50 mcg PO DAILY 10/14/24 10/31/24 10/31/24 09:00 History mcg (2,000 unit) tablet Physical Exam 2 Vital Signs and Narrative: Vital Signs: Last Vital Signs Pulse 78 10/31/24 11:28 Resp 18 10/31/24 11:28 BP 139/66 10/31/24 11:28 Pulse Ox 100 10/31/24 11:28 O2 Del Method Room Air 10/31/24 11:28 BMI result Body Mass Index 24.1 Const: Other: General: AO X 3, no acute distress Resp: CTA bilateral CVS: S1,S2,RRR GI: +BS, NT, no distention Skin: No rash Neuro: motor grossly intact Psych: appropriate affect Results Labs 10/31/24 12:17 11/01/24 06:04 Labs: Assessment and Plan (1) Paroxysmal atrial fibrillation: Status: Acute (2) Recurrent UTI: Status: Acute Plan 84/F with PAF, HTN here with recurrent UTI, that is unresolved with outpatient abx 1. uti--unresolved with outpatient abx -ceftriaxone in ED, transition to po ceftin tomorrow -follow cultures 2. PAF--continue metoprolol and eliquis 3. OA of hip, outpatient follow up with ortho 4. DVT prophylaxis--eliquis code full code Quality Stroke Does the patient have a stroke diagnosis?: No VTE Prior VTE?: No VTE Risk Level:: Medical - moderate - high VTE Device Contraindication: N/A - Device Ordered VTE Drug Contraindication: N/A - Med Ordered
[2024-10-31] MEDS: cefTRIAXone sodium 1 GM VIAL IVPUSH (13:57)
[2024-10-31 14:53] VITALS: BP 130/80; PULSE 77; RESP 14; TEMP 36.7; O2SAT 98
--- NOTE | 2024-10-31 16:31 | PHA.MEDREC ---
Pharmacy Consult ? Medication Reconciliation Pharmacy has completed the medication reconciliation. Spoke to pt to confirm meds.
--- NOTE | 2024-10-31 17:23 | PC.NURSE ---
patient resting quietly in bed, resp even and unlabored, patient bale to make needs known. given large pitcher of ice water.
[2024-10-31 18:51] VITALS: BP 131/73; PULSE 71; RESP 16; TEMP 36.3; O2SAT 97
[2024-10-31] MEDS: Apixaban 5 MG TABLET PO (20:27)
[2024-10-31 21:01] LABS: Alanine Aminotransferase 12 U/L (0-31); Albumin Level 4.1 g/dL (3.5-5.0); Alkaline Phosphatase 62 U/L (39-117); Anion Gap 15 (12-20); Aspartate Amino Transferase 20 U/L (5-31); Bilirubin Direct 0.2 mg/dL (0.0-0.5); Bilirubin Total 0.7 mg/dL (0.0-1.0); Blood Urea Nitrogen 19 mg/dL (9-16); Calcium 8.9 mg/dL (8.4-10.2); Carbon Dioxide 19 mmol/L (22-29); Chloride 107 mmol/L (96-108); Creatinine Clr Calc Pharmacy 46.3; Estimated Glomerular Filt Rate > 60; Glucose Random 104 mg/dL (60-115); Lipase 41 U/L (8-78); Sodium 137 mmol/L (135-145)
--- NOTE | 2024-10-31 21:38 | PC.NURSE ---
assumed care of patient at this time. Patient reporting to this RN that she has a mastectomy with lymph node removal to left breast, sign placed behind patients bed, IV that was placed by prior shift to Left wrist removed. Patient no complaints at this time
[2024-11-01] MEDS: 0.9 % Sodium Chloride Flush 3 ML SYRINGE IVFLUSH ×2 (00:32→08:59)
[2024-11-01 00:39] VITALS: BP 115/58; PULSE 75; RESP 18; TEMP 36.8; O2SAT 98
[2024-11-01 05:23] VITALS: BP 102/67; PULSE 73; RESP 16; TEMP 36.3; O2SAT 99
[2024-11-01 07:08] LABS: Alanine Aminotransferase 14 U/L (0-31); Albumin Level 3.5 g/dL (3.5-5.0); Alkaline Phosphatase 61 U/L (39-117); Anion Gap 10 (12-20); Aspartate Amino Transferase 19 U/L (5-31); Bilirubin Total 0.6 mg/dL (0.0-1.0); Blood Urea Nitrogen 20 mg/dL (9-16); Calcium 8.8 mg/dL (8.4-10.2); Carbon Dioxide 24 mmol/L (22-29); Chloride 111 mmol/L (96-108); Creatinine Clr Calc Pharmacy 42.8; Estimated Glomerular Filt Rate 60; Glucose Random 86 mg/dL (60-115); Potassium 4.1 mmol/L (3.3-5.1); Sodium 141 mmol/L (135-145)
[2024-11-01] MEDS: cefuroxime axetiL 250 MG TABLET PO (08:59)
[2024-11-01] MEDS: Cholecalciferol (Vitamin D3) 25 MCG TABLET 50 MCG PO (08:59)
[2024-11-01] MEDS: Metoprolol Succinate ER 25 MG TAB.ER.24H PO (08:59)
[2024-11-01] MEDS: Apixaban 5 MG TABLET PO (08:59)
[2024-11-01 09:00] VITALS: BP 106/60; PULSE 87; RESP 16; TEMP 36.5; O2SAT 98
--- NOTE | 2024-11-01 09:22 | P.DS_ITS ---
DS: Providers Provider Date of Service: 11/01/24 Date of admission: 10/31/24 14:53 Date of discharge: 11/01/24 Primary care physician: Dayanara Preston MD DS: Diagnosis Discharge Diagnosis (1) Paroxysmal atrial fibrillation: Status: Acute (2) Recurrent UTI: Status: Acute DS: Summary Hospital Course Hospital Course: admission hpi 84-year-old female with a history of PAF, recurrent UTIs, and osteoarthritis of the hip presents with not feeling well and her usual hip pain. She has experienced multiple UTIs since the beginning of the year and was most recently prescribed Bactrim on 10/26. Despite treatment, she still does not feel well. She denies fever, chills, or specific urinary symptoms. UA was positive, but she remains afebrile with a normal WBC count. She also complains of right hip pain, which is chronic and not new. She is scheduled to see Orthopedics next month for evaluation for a hip replacement. hospital course: Patient was admitted and treated with IV ceftriaxone for UTI, by the next day she reports feeling well and wanted to go, given that she has responded to ceftriaxone and has no fever or increase in wbc and have urinary symptoms will change her regimen to ceftin 250 mg twice daily for 7 days while awaiting cultures, she is comfortable with the plan Time Attestation Discharge Coordination Time (in mins): 35 Quality: Safe Use of Opioids Does Pt have an Active Cancer Diagnosis on the Problem List?: No Quality: Stroke Does the patient have a stroke diagnosis?: No Physical Exam Vital Signs: Vital Signs: Last Vital Signs Temp 97.7 F 11/01/24 09:00 Pulse 87 11/01/24 09:00 Resp 16 11/01/24 09:00 BP 106/60 11/01/24 09:00 Pulse Ox 98 11/01/24 09:00 O2 Del Method Room Air 11/01/24 09:00 BMI result Body Mass Index 24.1 DS: Data Data Completed and Pending Labs on day of discharge: Laboratory Results - last 24 hr 10/31/24 10/31/24 10/31/24 12:17 12:35 14:25 WBC 7.7 RBC 4.51 Hgb 13.0 Hct 38.6 MCV 85.6 MCH 28.8 MCHC 33.7 RDW 13.7 Plt Count 288 MPV 9.5 Immature Gran % (Auto) 0.4 Neut % (Auto) 77.1 H Lymph % (Auto) 13.4 L [place] % (Auto) 8.0 Eos % (Auto) 0.5 Baso % (Auto) 0.6 Lymph # (Auto) 1.0 L [place] # (Auto) 0.6 Eos # (Auto) 0.0 Baso # (Auto) 0.1 Abs Immat Gran (auto) 0.03 Absolute Neuts (auto) 5.9 Absolute Nucleated RBC 0.000 Nucleated RBC % (auto) 0.0 PT 13.9 H INR 1.2 H Sodium 137 Potassium 4.0 Chloride 107 Carbon Dioxide 19 L Anion Gap 15 BUN 19 H Creatinine 0.83 Estim Creat Clear Calc 46.3 Estimated GFR > 60 Random Glucose 104 Lactic Acid 2.0 Calcium 8.9 Total Bilirubin 0.7 Direct Bilirubin 0.2 AST 20 ALT 12 Alkaline Phosphatase 62 Troponin I High Sens 4.2 D B-Natriuretic Peptide 483 H Total Protein 7.0 Albumin 4.1 Lipase 41 Urine Color Yellow Urine Appearance Clear Urine pH 8.5 Ur Specific [place] 1.010 Urine Protein 30 (1+) H Urine Glucose (UA) Negative Urine Ketones Trace Urine Blood Moderate (2+) H Urine Nitrite Negative Ur Leukocyte Esterase Large (3+) H Urine RBC 11-20 H Urine WBC 21-50 H Ur Squamous Epith Cells 3-5 Urine Bacteria None Seen Hyaline Casts 0-2 Influenza Type A (PCR) NEGATIVE Influenza Type B (PCR) NEGATIVE RSV RNA Qual (PCR) NEGATIVE SARS-CoV-2 RNA (RT-PCR) NEGATIVE 11/01/24 06:04 WBC RBC Hgb Hct MCV MCH MCHC RDW Plt Count MPV Immature Gran % (Auto) Neut % (Auto) Lymph % (Auto) [place] % (Auto) Eos % (Auto) Baso % (Auto) Lymph # (Auto) [place] # (Auto) Eos # (Auto) Baso # (Auto) Abs Immat Gran (auto) Absolute Neuts (auto) Absolute Nucleated RBC Nucleated RBC % (auto) PT INR Sodium 141 Potassium 4.1 Chloride 111 H Carbon Dioxide 24 Anion Gap 10 L BUN 20 H Creatinine 0.90 Estim Creat Clear Calc 42.8 Estimated GFR 60 Random Glucose 86 Lactic Acid Calcium 8.8 Total Bilirubin 0.6 Direct Bilirubin AST 19 ALT 14 Alkaline Phosphatase 61 Troponin I High Sens B-Natriuretic Peptide Total Protein 6.0 L Albumin 3.5 Lipase Urine Color Urine Appearance Urine pH Ur Specific [place] Urine Protein Urine Glucose (UA) Urine Ketones Urine Blood Urine Nitrite Ur Leukocyte Esterase Urine RBC Urine WBC Ur Squamous Epith Cells Urine Bacteria Hyaline Casts Influenza Type A (PCR) Influenza Type B (PCR) RSV RNA Qual (PCR) SARS-CoV-2 RNA (RT-PCR) Discharge Plan Discharge Anticipated Discharge Date/Time: 11/01/24 09:15 Patient Disposition: Home, Self-Care Discharge Diagnosis: recurrent uti Referrals: Dayanara Preston MD [Primary Care Provider] - 1 Week Discharge Medications: New cefuroxime axetil 250 mg Tablet 250 mg PO BID Qty: 13 0RF Continued Eliquis 5 mg tablet 5 mg PO BID Qty: 180 3RF metoprolol succinate 25 mg tablet extended release 24 hr 25 mg PO DAILY Qty: 90 2RF cholecalciferol (vitamin D3) 50 mcg (2,000 unit) tablet 50 mcg PO DAILY Discharge Orders: Discharge Order (Routine); Ordered 11/01/24 Ordered By: Linden Ricardo Diet: Advance to usual diet Activity on Discharge: As tolerated Stand Alone Forms: Patient Portal Discharge page Print Language: German Care Plan Goals: recovery from recurrent uti Health Concerns: recurrent uti Plan of Treatment: take cefuroxime as directed and follow up with your doctor in a week Assessment: see above
[2024-11-01 10:16] VITALS: BP 106/60; PULSE 87; RESP 16; TEMP 36.5; O2SAT 98
--- NOTE | 2024-11-01 11:27 | MHC.CM.PN ---
PT REPORTS SHE LIVES ALONE AND IS INDEPENDENT WITH CARE SHE HAS NO DME OR SERVICES HCP ON FILE AND VERIFIED PCP: GAGE RAMIREZ IMM DELIVERED PT WILL DC HOME TODAY WITH NO SERVICES DAUGHTER TO TRANSPORT
== END 2024-11-01 10:15 | disposition home or self-care (01) | DRG 690 ==
LOC: HO.ED 14:07 → HO.EDOVER 14:53
PROVIDERS: Admitting Provider Internal Medicine; Emergency Provider Emergency Medicine; PCP Internal Medicine; Visit Provider Internal Medicine
DX: N39.0 Urinary tract infection, site not specified (principal); I48.0 Paroxysmal atrial fibrillation; Z20.822 Contact with and (suspected) exposure to COVID-19; M16.11 Unilateral primary osteoarthritis, right hip; Z87.440 Personal history of urinary (tract) infections; Z79.01 Long term (current) use of anticoagulants; Z79.899 Other long term (current) drug therapy
CPT/HCPCS: 0241U; 36415; 71045; 73502; 80048; 80053; 80076; 81001; 83605; 83690; 83880; 84484; 85025; 85610; 87040; 87086; 93005; 99285; J0696

== ENCOUNTER → 2024-10-31 11:23 | Outpatient (BNV) | payer MEDICARE, SELFPAY | PROVIDERS: Admitting Provider Internal Medicine; Emergency Provider Emergency Medicine; PCP Internal Medicine; Visit Provider Internal Medicine | DX: I48.92 Unspecified atrial flutter (principal); R94.31 Abnormal electrocardiogram [ECG] [EKG]; R53.1 Weakness | CPT/HCPCS: 93010 ==

== ENCOUNTER → 2024-10-31 11:23 | Outpatient (BNV) | payer MEDICARE, SELFPAY | PROVIDERS: Emergency Provider Emergency Medicine; PCP Internal Medicine; Visit Provider Radiology Diagnostic Radiology | DX: M16.11 Unilateral primary osteoarthritis, right hip (principal); R53.1 Weakness | CPT/HCPCS: 71045; 73502 ==

== ENCOUNTER → 2024-10-31 14:53 | Outpatient (BNV) | payer MEDICARE, SELFPAY | PROVIDERS: Admitting Provider Internal Medicine; Emergency Provider Emergency Medicine; PCP Internal Medicine; Visit Provider Internal Medicine | DX: N39.0 Urinary tract infection, site not specified (principal); I48.0 Paroxysmal atrial fibrillation | CPT/HCPCS: 99222; 99239 ==

== ENCOUNTER 2024-11-05 11:13 | Emergency (ER) | payer MEDICARE, SELFPAY ==
[2024-11-05 11:33] VITALS: BP 116/68; PULSE 77; RESP 16; TEMP 36.5; O2SAT 99; BMI 23.1
--- NOTE | 2024-11-05 11:46 | ED.WEAKNESS ---
HPI - Weakness General Chief complaint: Weakness Stated complaint: WEAKNESS Time Seen by Provider: 11/05/24 11:19 Source: patient, EMS and old records reviewed Mode of arrival: EMS Limitations: no limitations History of Present Illness ED Provider: MELISA GARNER Narrative: 84 yo female with PMH of arthritis, afib on eliquis, dyslipidemia, CVA, recurrent UTI just admitted 10/31 to 11/01 on ceftriaxone and DC home with ceftin urine culture was negative she returns today with c/o 3 days of diarrhea and stool incontinence, no abdominal pain no fevers, no chills. She throw up x 1. Has no abdominal pain. She states she thinks she is dehydrated. She denies any diarrhea today and never reported GI bleed symptoms. Of note her culture was negative and prior the culture she had been off bactrim for 6 days doubt false negative MD Complaint: generalized weakness Onset (ago): day(s) (3) Duration: constant Location: generalized Migration: none Severity: moderate Quality: dull Relieving factors: none Exacerbating factors: movement and exertion Context: new medication and recent illness Associated symptoms: loss of appetite, nausea/vomiting and other (diarrhea) Related Data Home Medications ?Medication ?Instructions ?Recorded ?Confirmed cholecalciferol (vitamin D3) 50 50 mcg PO DAILY 10/14/24 11/02/24 mcg (2,000 unit) tablet Previous Rx's ?Medication ?Instructions ?Recorded apixaban 5 mg tablet (Eliquis) 5 mg PO BID #180 tabs 01/13/24 metoprolol succinate 25 mg 25 mg PO DAILY #90 tabs 10/01/24 tablet,extended release 24 hr cefuroxime axetil 250 mg tablet 250 mg PO BID #13 tabs 11/01/24 Allergies Allergy/AdvReac Type Severity Reaction Status Date / Time nitrofurantoin AdvReac Severe Diarrhea Verified 11/05/24 11:34 atorvastatin AdvReac Intermediate muslce pain Verified 11/05/24 11:34 simvastatin AdvReac Intermediate muscle pain Verified 11/05/24 11:34 Review of Systems Review of Systems: Constitutional : No Weight loss, No Fever, No Chills ENT/Mouth : No sore throat, No Rhinorrhea Eyes: No Swelling, No Redness Cardiovascular : No Chest Pain, No SOB, NoEdema Respiratory : No Cough, No Sputum, No Wheezing Gastrointestinal : pos Nausea, no Vomiting, positive Diarrhea, no abdominal Pain, No Hematochezia, No Melena Genitourinary : No Dysuria, No Urinary Frequency, No Hematuria, No Urgency Musculoskeletal : No joint pain, No Myalgias, No Joint Swelling Skin : No Skin Lesions, No rash Neuro : pos Weakness, No Numbness, No Dizziness, No Headache All other systems reviewed and are negative. [facility] Past Medical History Attestation statement: The following information was validated with the patient. 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 Mother No problems noted. Maternal Aunt No problems noted. Maternal Uncle No problems noted. Social History Social History Household Members: None Housing: House Are you a primary critical care transport nurse to a significant other at home: No Do you presently have visiting nurse or other home services: No Alcohol intake: current Alcohol intake frequency: does not drink Alcohol type: beer and wine Patient Tobacco Use Status: Never used Tobacco Smoked in Last 30 Days: No e-Cigarette/Vaping Use: Never Used Second Hand Smoke Exposure: No Use of substances other than those prescribed or required for medical reasons: No Advance Directives: No Advance Directives Information Provided: Yes service: No Current occupational status: retired Cognitive needs: No Hearing needs: No Vision needs: Yes Physical Exam Vital Signs: Vital Signs: Last Vital Signs Temp 98.3 F 11/05/24 14:59 Pulse 74 11/05/24 14:59 Resp 14 11/05/24 14:59 BP 104/64 11/05/24 14:59 Pulse Ox 98 11/05/24 14:59 O2 Del Method Room Air 11/05/24 14:59 BMI result Body Mass Index 23.1 Appearance: Alert. Oriented X3. No acute distress. Eyes: Pupils equal, round and reactive to light. ENT: Pharynx normal. Neck: Normal inspection. Neck supple. CVS: Normal heart rate and rhythm. Pulses normal. Respiratory: No respiratory distress. Breath sounds normal. Abdomen: Soft and nontender. Skin: Skin warm and dry. Normal skin color. Normal skin turgor. Extremities: No lower extremity edema. No calf ttp Neuro: Oriented X 3. No motor deficit. No sensory deficit. CN2-12 intact Medications Administered Discontinued Medications Generic Name Dose Route Start Last Admin Trade Name Freq PRN Reason Stop Dose Admin Lactated Ringer's 1,000 mls @ 999 mls/hr 11/05/24 11:53 11/05/24 14:37 Lr IV 11/05/24 12:53 Infused .Q1H1M ONE Infusion Medical Decision Making Medical Decision Making [facility] Narrative: 84 yo female with PMH of arthritis, afib on eliquis, dyslipidemia, CVA, recurrent UTI who is on ceftin though culture is negative now c/o weakness and diarrhea for 3 days. Has no pain, no fevers. Will hold ceftin and obtain labs, EKG, stool studies and hydrate. No CP/SOB or localized ttp Differential Diagnosis Differential Diagnoses: The differential diagnosis associated with the presentation includes dehydration, anemia, antibiotic associated diarrhea Admission/Observation Consideration of admission/observation: Escalation of care including admission/observation considered has mild pancytopenia but otherwise normal work up UA negative and culture negative will stop antibiotics tolerating PO 4+ hours in ED no vomiting and no diarrhea doubt c diff not toxic and able to eat declines rehab placement Lab Data [facility] Lab Attestation statement: I reviewed the patient's lab results. 11/05/24 12:17 11/05/24 12:17 Labs: Lab Results 11/05/24 11/05/24 11/05/24 Range/Units 12:17 12:34 15:27 WBC 3.1 L (4.8-10.8) X10*3/uL RBC 3.92 L (4.20-5.50) X10*6/uL Hgb 11.4 L (12.0-16.0) g/dl Hct 33.3 L (37.0-47.0) % MCV 84.9 (80.0-98.0) fL MCH 29.1 (27.0-33.0) pg MCHC 34.2 (31.0-35.0) g/dl RDW 13.9 (11.0-16.0) % Plt Count 195 D (160-400) X10*3/uL MPV 9.4 (9.4-12.3) fL Immature Gran % (Auto) 0.3 (0.0-0.4) % Neut % (Auto) 60.8 (45-73) % Lymph % (Auto) 23.2 (20-40) % [place] % (Auto) 14.1 H (2-11) % Eos % (Auto) 0.6 (0-4) % Baso % (Auto) 1.0 (0-2) % Lymph # (Auto) 0.7 L (1.2-4.9) X10*3/uL [place] # (Auto) 0.4 (0.1-1.2) X10*3/uL Eos # (Auto) 0.0 (0.0-0.4) X10*3/uL Baso # (Auto) 0.0 (0.0-0.2) X10*3/uL Abs Immat Gran (auto) 0.01 (0.00-0.03) X10*3/uL Absolute Neuts (auto) 1.9 L (2.0-8.3) x10*3/uL Absolute Nucleated RBC 0.000 (0.0-0.012) X10*3/uL Nucleated RBC % (auto) 0.0 (0.0-0.2) /100WBC PT 13.5 H (10.9-12.4) SEC INR 1.2 H (0.9-1.1) APTT 31.0 (26.0-36.8) SEC Sodium 139 (135-145) mmol/L Potassium 3.3 (3.3-5.1) mmol/L Chloride 110 H (96-108) mmol/L Carbon Dioxide 20 L (22-29) mmol/L Anion Gap 12 (12-20) BUN 15 (9-16) mg/dL Creatinine 0.75 (0.5-1.4) mg/dL Estim Creat Clear Calc 51.3 Estimated GFR > 60 Random Glucose 117 H (60-115) mg/dL Calcium 8.4 (8.4-10.2) mg/dL Magnesium 1.9 (1.6-2.6) mg/dL Troponin I High Sens < 2.7 (<3.5-17.0) ng/L Urine Color Yellow Urine Appearance Clear Urine pH 7.0 (5.0-9.0) Ur Specific [place] <= 1.005 (1.005-1.025) Urine Protein Negative (Neg-Trace) mg/dL Urine Glucose (UA) Negative (Negative) mg/dL Urine Ketones Negative (Negative) mg/dL Urine Blood Moderate (2+) H (Negative) Urine Nitrite Negative (Negative) Ur Leukocyte Esterase Small (1+) H (Negative) Urine RBC 3-5 H (0-2) /HPF Urine WBC 0-5 (0-5) /HPF Ur Squamous Epith Cells 0-2 (0-2) /HPF Urine Bacteria None Seen (None Seen) Hyaline Casts 0-2 (0-2) /LPF Stool Occult Blood NEGATIVE (NEGATIVE) Influenza Type A (PCR) NEGATIVE (Negative) Influenza Type B (PCR) NEGATIVE (Negative) RSV RNA Qual (PCR) NEGATIVE (Negative) SARS-CoV-2 RNA (RT-PCR) NEGATIVE (Negative) Independent Interpretation I performed an independent interpretation of an: EKG Interpretation: Rate: 79 Rhythm: afib Sullivan: normal Normal QRS complex. ST T wave : no CATHERINE, nonspecific ST T wave changes qTC: 438 prior studies: no acute ischemia The study has been interpreted contemporaneously by me. . Independent Historian Clinical information obtained from an independent historian. History obtained from or confirmed by: EMS External Record Review External record reviewed: Inpatient record and Outpatient record Discharge Plan Discharge Clinical Impression: Weakness, Antibiotic-associated diarrhea Patient Disposition: Home, Self-Care Instructions: Weakness (ED), Acute Diarrhea (ED) Additional Instructions: urine not infected and culture from last visit negative would stop the antibiotic slight drop in your WBC count and hemoglobin would repeat with your doctor on Friday this could be due to a viral illness but you need to trend it. There was no significant drop. Stool negative for blood negative for flu, covid, rsv take a probiotic or eat a yogurt return for any worsening symptoms, dizziness, fevers, blood stool, chest pain trouble breathing or any other concerns. Prescriptions: No Action Eliquis 5 mg tablet 5 mg PO BID Qty: 180 3RF metoprolol succinate 25 mg tablet extended release 24 hr 25 mg PO DAILY Qty: 90 2RF cefuroxime axetil 250 mg Tablet 250 mg PO BID Qty: 13 0RF cholecalciferol (vitamin D3) 50 mcg (2,000 unit) tablet 50 mcg PO DAILY Print Language: [place]
--- NOTE | 2024-11-05 11:47 | ECG_ITS ---
Test Reason : weakness Blood Pressure : */* mmHG Vent. Rate : 76 BPM Atrial Rate : * BPM P-R Int : * ms QRS Dur : 72 ms QT Int : 390 ms P-R-T Axes : * 29 -20 degrees QTcB Int : 438 ms Atrial fibrillation Abnormal ECG When compared with ECG of 31-Oct-2024 12:20, Atrial fibrillation has replaced Atrial flutter Referred By: Generic ED Physician Electronically Signed By: CECILIA SORTO
[2024-11-05 12:24] LABS: MANUAL DIFF FLAG NO
[2024-11-05 12:25] LABS: Eosinophils Percent Auto 0.6 % (0-4); Hematocrit 33.3 % (37.0-47.0); Hemoglobin 11.4 g/dl (12.0-16.0); Imm Gran Abs Auto 0.01 X10*3/uL (0.00-0.03); Imm Gran Pct Auto 0.3 % (0.0-0.4); Lymphocytes Absolute Auto 0.7 X10*3/uL (1.2-4.9); Lymphocytes Percent Auto 23.2 % (20-40); Mean Corpuscular HGB Conc 34.2 g/dl (31.0-35.0); Mean Corpuscular Hemoglobin 29.1 pg (27.0-33.0); Mean Corpuscular Volume 84.9 fL (80.0-98.0); Mean Platelet Volume 9.4 fL (9.4-12.3); Monocytes Absolute Auto 0.4 X10*3/uL (0.1-1.2); Monocytes Percent Auto 14.1 % (2-11); Neutrophils Absolute Auto 1.9 x10*3/uL (2.0-8.3); Neutrophils Percent Auto 60.8 % (45-73); Platelet Count 195 X10*3/uL (160-400); Red Blood Count 3.92 X10*6/uL (4.20-5.50); Red Cell Distribution Width 13.9 % (11.0-16.0); White Blood Count 3.1 X10*3/uL (4.8-10.8)
[2024-11-05 12:30] LABS: INTERNATIONAL NORM RATIO 1.2 (0.9-1.1); Prothrombin Time 13.5 SEC (10.9-12.4)
[2024-11-05] MEDS: Lactated Ringers 1,000 ML 999 ML IV (12:33)
[2024-11-05 12:38] LABS: Anion Gap 12 (12-20); Blood Urea Nitrogen 15 mg/dL (9-16); Calcium 8.4 mg/dL (8.4-10.2); Carbon Dioxide 20 mmol/L (22-29); Chloride 110 mmol/L (96-108); Creatinine Clr Calc Pharmacy 51.3; Estimated Glomerular Filt Rate > 60; Glucose Random 117 mg/dL (60-115); Magnesium 1.9 mg/dL (1.6-2.6); Potassium 3.3 mmol/L (3.3-5.1); Sodium 139 mmol/L (135-145)
[2024-11-05 12:47] LABS: Appearance Urine Clear; Color Urine Yellow; Glucose Urine UA Negative (Negative); Leukocyte Esterase Urine Small (1+) (Negative); Nitrite Urine Negative (Negative); Specific Gravity - Urine <= 1.005 (1.005-1.025); UMIC TRIGGER UACC YES; Urine Blood Moderate (2+) (Negative); Urine Ketones Negative (Negative); Urine Protein Negative (Neg-Trace)
[2024-11-05 12:47] LABS: Troponin-I High Sensitivity < 2.7 ng/L (<3.5-17.0)
[2024-11-05 12:59] LABS: Bacteria Urine None Seen (None Seen); Hyaline Casts Urine 0-2 /LPF (0-2); Squamous Epithelial Cell Urine 0-2 /HPF (0-2); UACC Culture Trigger YES; WBC Urine 0-5 /HPF (0-5)
[2024-11-05 13:08] LABS: Influenza A PCR NEGATIVE (Negative); Influenza B PCR NEGATIVE (Negative); Resp Syncy Virus RNA Qual PCR NEGATIVE (Negative); SARS COV2 PCR INHOUSE NEGATIVE (Negative)
--- NOTE | 2024-11-05 14:43 | PC.NURSE ---
Patient awake and alert, skin flush,warm, dry. resp even and non labored. speaking in full, clear sentences. denies pain. denies any further episodes of n/v/d while in ED.
[2024-11-05 14:59] VITALS: BP 104/64; PULSE 74; RESP 14; TEMP 36.8; O2SAT 98
[2024-11-05 15:30] LABS: OBS Int Ctl Valid YES; OBS1 NEGATIVE (NEGATIVE)
[2024-11-05 16:38] VITALS: BP 104/64; PULSE 74; RESP 14; TEMP 36.8; O2SAT 98
== END 2024-11-05 16:38 | disposition home or self-care (01) ==
PROVIDERS: Emergency Provider Emergency Medicine; PCP Internal Medicine
DX: R53.1 Weakness (principal); R19.7 Diarrhea, unspecified; R15.9 Full incontinence of feces; I48.91 Unspecified atrial fibrillation; R11.0 Nausea; Z87.440 Personal history of urinary (tract) infections; Z03.818 Encounter for observation for suspected exposure to other biological agents ruled out; Z79.899 Other long term (current) drug therapy
CPT/HCPCS: 0241U; 80048; 81001; 82272; 83735; 84484; 85025; 85610; 85730; 87086; 93005; 96360; 96361; 99284; 99285; J7120

== ENCOUNTER 2024-11-17 09:29 | Outpatient (REF) | payer MEDICARE, SELFPAY ==
[2024-11-17 13:53] LABS: MANUAL DIFF FLAG NO
[2024-11-17 13:56] LABS: Basophils Percent Auto 0.6 % (0-2); Eosinophils Absolute Auto 0.1 X10*3/uL (0.0-0.4); Eosinophils Percent Auto 1.2 % (0-4); Hematocrit 37.1 % (37.0-47.0); Hemoglobin 12.2 g/dl (12.0-16.0); Imm Gran Abs Auto 0.02 X10*3/uL (0.00-0.03); Imm Gran Pct Auto 0.3 % (0.0-0.4); Lymphocytes Percent Auto 14.1 % (20-40); Mean Corpuscular HGB Conc 32.9 g/dl (31.0-35.0); Mean Corpuscular Hemoglobin 29.3 pg (27.0-33.0); Mean Corpuscular Volume 89.2 fL (80.0-98.0); Mean Platelet Volume 9.5 fL (9.4-12.3); Monocytes Absolute Auto 0.6 X10*3/uL (0.1-1.2); Monocytes Percent Auto 9.4 % (2-11); Neutrophils Absolute Auto 5.1 x10*3/uL (2.0-8.3); Neutrophils Percent Auto 74.4 % (45-73); Platelet Count 324 X10*3/uL (160-400); Red Blood Count 4.16 X10*6/uL (4.20-5.50); Red Cell Distribution Width 14.1 % (11.0-16.0); White Blood Count 6.8 X10*3/uL (4.8-10.8)
[2024-11-17 14:41] LABS: Iron 63 mcg/dL (30-160); Percent Iron Saturation 22 % (15-50); Total Iron Binding Capacity 286 mcg/dL (228-428); Unsaturated Iron Binding 223 ug/dL
== END 2024-11-17 09:30 | disposition home or self-care (01) ==
LOC: HO.HMGCLDS 09:29
PROVIDERS: PCP Internal Medicine; Visit Provider Internal Medicine
DX: D64.9 Anemia, unspecified (principal); Z86.39 Personal history of other endocrine, nutritional and metabolic disease; I48.0 Paroxysmal atrial fibrillation
CPT/HCPCS: 36415; 83540; 85025; 99212

== ENCOUNTER 2024-11-17 09:29 | Outpatient (AMB) | payer MEDICARE, SELFPAY ==
[2024-11-17 09:56] VITALS: BP 130/76; PULSE 80; RESP 16; TEMP 36.7; O2SAT 99; BMI 23.2
--- NOTE | 2024-11-17 09:56 | MHC.PC.OV ---
Vital Signs 11/17/24 09:56 Height 5 ft 6 in Weight 144 lb BMI 23.2 BP 130/76 Blood Pressure Location Rt brachial Position Sitting Respiration 16 Pulse 80 Pulse Source Pulse Oximeter Temp 98.0 F Temp Source Oral Pulse Oximetry (%) 99 Oxygen Delivery Method Room Air Intake Visit Reasons: dehydrated [facility] Intake Note: Pt is here today to f/u [facility] ER for dehydration Allergies nitrofurantoin Adverse Reaction (Severe, Verified 11/17/24 10:22) Diarrhea atorvastatin Adverse Reaction (Intermediate, Verified 11/17/24 10:22) muslce pain simvastatin Adverse Reaction (Intermediate, Verified 11/17/24 10:22) muscle pain cefuroxime Adverse Reaction (Verified 11/17/24 10:22) Diarrhea Medication List - Last Reconciled 11/17/24 by Dayanara Preston MD apixaban (Eliquis) 5 mg PO BID cholecalciferol (vitamin D3) 50 mcg PO DAILY metoprolol succinate ER 25 mg PO DAILY Tobacco use date assessed: 11/17/24 Fall risk assessment: No Falls in past year Last assessed Fall Risk: 11/17/24 Dental Screening Dental Screen Date: 11/17/24 HPI dehydrated [facility] HPI Details 84-year-old lady with history of arthritis, atrial fibrillation on Eliquis, dyslipidemia, history of CVA with no residual deficits, history of recurrent UTI, here today for follow-up after recent ER visit. Came in complaining of generalized weakness after having had diarrhea for at least 3 days after starting Ceftin for treatment of a presumed urinary tract infection. Diarrhea stopped after she has discontinue taking her antibiotic but still felt very weak. Given IV fluids at ER with marked improvement in symptoms. Present patient states that she is back to her normal self, with no new complaints at present time. 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 Mother No problems noted. Maternal Aunt No problems noted. Maternal Uncle No problems noted. Social History Household Members: None Housing: House Are you a primary career services representative to a significant other at home: No Do you presently have visiting nurse or other home services: No Alcohol intake: current Alcohol intake frequency: does not drink Alcohol type: beer and wine Patient Tobacco Use Status: Never used Tobacco e-Cigarette/Vaping Use: Never Used Second Hand Smoke Exposure: No service: No Current occupational status: retired Cognitive needs: No Hearing needs: No Vision needs: Yes Questionnaire Thrive Questionnaire Date Thrive assessed: 11/01/24 Review of Systems Const Reports no additional complaints Eyes Reports no additional complaints ENT Reports no additional complaints Card Reports no additional complaints Resp Reports no additional complaints GI Reports no additional complaints Reports as per HPI Musc Reports no additional complaints Skin/Breast Reports system reviewed and no additional complaints, except as documented Neuro Reports no additional complaints Psych Reports no additional complaints Endo Reports no additional complaints Alexandre/Lymph Reports no additional complaints Aller/Immun Reports no additional complaints Physical exam (Primary Care) Vital Signs: Last Vital Signs Temp 98.0 F 11/17/24 09:56 Pulse 80 11/17/24 09:56 Resp 16 11/17/24 09:56 BP 130/76 11/17/24 09:56 Pulse Ox 99 11/17/24 09:56 Oxygen Delivery Method Room Air 11/17/24 09:56 BMI result Body Mass Index 23.2 Tobacco/Smoking Status: Tobacco use Status Tobacco use date assessed 11/17/24 11/17/24 09:59 Patient Tobacco Use Status Never used Tobacco 11/17/24 09:59 e-Cigarette/Vaping Use Never Used 11/17/24 09:59 Thrive Assessment: Date of Thrive Assessment Date Thrive assessed 11/01/24 11/17/24 09:59 Const General: comfortable and no acute distress Orientation/consciousness: patient oriented x3 HENMT General nose exam: Normal external nose present and No nasal discharge present Face and sinus: Yes face symmetric Mouth: Normal oral and palatal mucosa present and moist mucous membranes Neck Neck: Yes full ROM, Yes no lymphadenopathy and Yes supple Resp Effort & Inspection: normal respiratory effort and able to speak in complete sentences Auscultation: clear to auscultation bilaterally Cardio Rate: regular rate Rhythm: regular rhythm Heart sounds: S1 normal heart sound present and S2 normal heart sound present GI Inspection: Yes normal to inspection Palpation (GI): Soft to palpation, nontender and no masses Auscultation: normal bowel sounds Neuro General: patient oriented x3, gait normal, tone normal, moves all extremities, Normal light touch and pain sensation and no focal motor deficits Extrem General: Yes full ROM, Yes no joint enlargement, Yes no clubbing, cyanosis or edema and Yes normal gait Coding Level of Care Code Est Pt Level 4 (74378) Diagnoses Anemia, unspecified type D64.9 Anemia type: unspecified type History of dehydration Z86.39 Paroxysmal atrial fibrillation I48.0 Assessment & Plan Assessment & Plan (1) Anemia: Code(s): D64.9 - Anemia, unspecified Category: Medical Qualifiers: Anemia type: unspecified type Qualified Code(s): D64.9 - Anemia, unspecified Plan: Noted to be mildly anemic on last labs done at the ER, will repeat another CBC and ordered an iron profile (2) History of dehydration: Code(s): Z86.39 - Personal history of other endocrine, nutritional and metabolic disease Plan: Patient states that she has been feeling well, with no further episodes of diarrhea. Appetite good (3) Paroxysmal atrial fibrillation: Code(s): I48.0 - Paroxysmal atrial fibrillation Category: Medical Plan: Currently on metoprolol succinate ER 25 mg daily and apixaban 5 mg 1 tablet twice a day Orders: Orders Complete Blood Count Auto Diff 11/17/24 D64.9 - Anemia, unspecified IRON PROFILE 11/17/24 D64.9 - Anemia, unspecified
== END 2024-11-17 11:05 | disposition home or self-care (01) ==
PROVIDERS: PCP Internal Medicine; Visit Provider Internal Medicine
DX: D64.9 Anemia, unspecified (principal); Z86.39 Personal history of other endocrine, nutritional and metabolic disease; I48.0 Paroxysmal atrial fibrillation

== ENCOUNTER → 2025-01-28 09:09 | Outpatient (REF) | payer MEDICARE, SELFPAY ==
--- NOTE | ~2025-01-28 | NM_ITS ---
Lexiscan Myocardial perfusion study Indication: Preoperative cardiovascular stratification Technique: The patient was brought in for a Lexiscan perfusion study on 01/28/2025 and was injected 0.4 mg of Lexiscan intravenously. Within a minute of this injection 25 mCi of sestamibi was given intravenously. Images were obtained using the SPECT gamma camera interlaced with the gating device. Images were obtained in supine position. Resting perfusion study was performed on 01/31/2025. Patient was administered 25 mCi of sestamibi intravenously at rest. Images were then obtained in supine position. Images obtained without without CT attenuation. Total DLP 72 mGy-cm. Images were processed with the software and compared side to side in short axis, horizontal long axis and vertical long axis views. Findings: The stress perfusion study showed nonattenuated images show mildly to moderately reduced uptake in the basal and midportion of the septum and anteroseptal area. There is also minimally reduced uptake in the distal anterior wall of the LV myocardium. Attenuated corrected images show moderately reduced uptake in the apex of the LV myocardium. The gated study shows normal LV systolic function with calculated LVEF of greater than 60%. LV cavity is normal in size. The gated study shows normal systolic wall thickening and contraction of segments. Resting study shows no change in perfusion pattern compared to stress perfusion study. Gating at rest reveals normal systolic wall motion with ejection fraction at 65%. The findings are consistent with no clear reversible defect suggestive of ischemia, likely normal myocardial perfusion.. NM/NM cardiolite stress test Impression: 1. Myocardial perfusion imaging study shows likely normal myocardial perfusion 2. Gated LVEF is 65% 3. Transient ischemic dilatation not present Nondiagnostic changes on EKG. Electronically signed by: Danny Beckett MD 01/31/2025 04:09 PM EDT
--- NOTE | 2025-01-28 09:12 | CA_ITS ---
Acquisition Time: 2025-01-28 09:37:07 Total Exercise Time: 00:02:00 Test Indications: AFIB Medications: SEE H&P Protocol: LEXISCAN Max HR: 122 BPM 91% of Pred: 134 BPM Max BP: 132/68 mmHG Max Work Load: 1.0 METS Pharmacological stress test with Lexiscan while pt marches in the chair, with reports of flushing, SOB and heart pounding, without any arrythmias, with normotensive response to injection. Nondiagnostic EKG for ischemia. In recovery, pt treated with IVP Aminophylline 75 mg to reverse Lexiscan after which pt feeling back to baseline. Nuclear images pending. Test reviewed with Dr. Rice. Referred By: Danny Beckett Electronically Signed By: Gt Becker
--- OUTSIDE RECORDS SUMMARY | 2025-01-28 09:21 | XMS_ITS | Data Portability ---
Author Organization [place] - [facility], [facility] Address [address] [place] [address] Care Team Providers Care Metal Riveter Name Role Phone GAGE RAMIREZ Referring Provider GAGE RAMIREZ Primary Care Provider Assessment Encounter Date Assessment Date Assessment LastModified by Organization Details LastModified Time 11/25/2024 11/25/2024 I am seeing the patient today under the supervision of who was available but who did not see the patient. HPI: Patient presents today complaining of right hip pain. States that the pain has been bothersome for quite some time, over the past few years. There was no inciting injury or antecedent event that brought on the pain originally. Pain is worse with activities including standing from a seated position, ascending/descendin g stairs, and walking for prolonged periods of time. The patient has difficulty putting on socks and shoes due to limits in range of motion. Would like to discuss PAUL with Dr. Mosquera for the anterior approach. Past family, medical, social history and review of systems has been reviewed, updated and is located in the patient? s chart. The patient is well appearing and in no apparent distress. Alert and oriented x3. Gait is antalgic favoring the right side. Examination: right hip: Visual inspection reveals no swelling, ecchymosis or erythema about the hip. No tenderness to palpation about the hip. Hip range of motion limited with irritability during internal rotation and flexion. Strength 4/5. + DANIKA. + FADDIR. Negative scouring test. Negative Stinchfield. Neurovascular intact. Calf soft and nontender. X-rays obtained at an outside institution and independently reviewed by myself today at [facility] AP and lateral of the right hip reveal severe joint space narrowing with osteophyte formation and subchondral sclerosis/cysts. No evidence of AVN, acute fracture or dislocation. Impression: osteoarthritis, right hip Plan: I explained the nature of the diagnosis with the patient and its treatment options both conservative and surgical. The patient was thoroughly counseled today regarding their hip condition, its natural history and the options, both operative and non-operative. The nature of hip replacement surgery, the potential risks, benefits, and complications, the magnitude of the surgery, the intensity of postoperative recovery as well as its elective nature were explained at length today. Issues regarding life long dislocation, infection, and activity precautions were reviewed. The longevity of the implants was discussed. Will follow up with Dr. Mosquera as scheduled for further evaluation. The patient understands and agrees with the plan. They know to call if they have any further questions or concerns regarding their symptoms, or to follow up sooner if needed. Not available 11/25/2024 11:58:43 12/14/2024 12/14/2024 Imaging: Imaging ordered, independently reviewed and interpreted by Jaleel Mosquera MD reveals the following findings: XR Hip Right Hip: Two views of the hip were obtained including AP pelvis and groin lateral views. Severe DJD present. Changes consistent with osteoarthritis including joint space narrowing, subchondral sclerosis, and osteophyte formation. Arthrosis primarily affects the superior compartment. There is wtzr-bn-euvm articulation present Impression: Right hip osteoarthritis Plan: Will plan for anterior approach. I recommend a total hip arthroplasty for relief of their hip disease. They have exhausted conservative measures. Their symptoms are significant enough to warrant replacement. I informed the patient that the goal is to offer significant pain relief for about 15 years, and hopefully this also improves their hip function. Activities can be resumed after surgery, however running and jumping are discouraged. They agree to this procedure. Prior to surgery the patient needs to have the following: CBC, CMP, medical clearance, cardiac clearance Indications for surgery: Advanced joint disease demonstrated by: X-ray Failure of conservative management Unsuccessful history of appropriate conservative therapy (non-surgical medical management). Non surgical medical management was implemented for 3 months or more to assess effectiveness. Conservative treatment as clinically appropriate for the patient? s current episode of care including, but not limited to, one or more of the following: anti-inflammatory medications, analgesics, flexibility and muscle strengthening exercises, supervised physical therapy, activities of daily living (1ADLs) diminished despite completing a plan of care, activity restrictions as is reasonable, assistive device use, weight reduction as appropriate, and therapeutic injections into the joint as appropriate. Risks and benefits of surgery were discussed with the patient and the patient understood. I discussed the alternatives and details of surgery and postoperative care with the patient. The patient understands the concepts of surgery and the postoperative conditions required for healing. The patient further understands that surgery can have unfavorable outcomes. In particular, we discussed the possible complications of nonhealing of the tissues and need for reoperation, nerve injury, bleeding or blood loss requiring transfusion, hematoma or complications of anticoagulation used to prevent blood clots, infection requiring further surgery or removal of implants, massive infection requiring amputation, or continued or worse pain. We also discussed worsening of chronic medical conditions and life-threatening complications including stroke, clot, heart attack, pulmonary embolism and related to the surgery or anesthesia, or other factors. The patient understands these risks and benefits of surgery and wishes to proceed, and has signed consent willfully. Due to the condition of the joint, it is my medical opinion that further conservative treatment will not provide relief of their pain, thus we are proceeding with surgery. VTE risk factors: History of VTE: No Active malignancy (excluding skin cancer): No Systolic heart failure (LVEF < 40%): No Bilateral TKA or PAUL being performed: No Current use of hormonal therapy: No (Testosterone use excluded) Oral contraceptive pills Hormone replacement therapy Known thrombophilic disorder: No Antiphospholipid Syndrome Factor V Leiden Prothrombin Gene Mutation Protein C/S Deficiency Anti-Thrombin Deficiency Paroxysmal Nocturnal Hemoglobinuria (PNH) Myeloproliferative Disorder/ZAYDA-2 Mutation Polycythemia Vera Chronic Myelogenous Leukemia Essential Thrombocytosis Total risk factors: 0 Based on risk stratification above, will plan to use eliquis for DVT prophylaxis. Patients prescribed antithrombotic therapy for an indication other than post-operative VTE prophylaxis should be assessed on an individual basis for continuation of their current therapy. If using a direct oral anticoagulant (DOAC) as home regimen, either resume DOAC post-op, or consider temporary transition to Warfarin therapy in the post-operative period. [email or web address] Not available 12/14/2024 15:34:13 12/31/2024 12/31/2024 Assessment: Amna ent presents with symptoms that are consistent with hip OA. Demonstrates good understanding of home program, post-operative mechanics for gait and stairs, hip kit, and expectations following surgery. ? Plan: Discharge patient to hip OA friendly [facility]. Follow up with patient post-operatively. [email or web address] Not available 12/31/2024 08:15:22 01/18/2025 01/18/2025 SURGICAL HISTORY AND PHYSICAL PRIMARY DIAGNOSIS: Osteoarthritis of the right hip. REASON FOR ADMISSION: The patient is being admitted for an anterior right total hip arthroplasty with Dr. Jaleel Mosquera on 01/24/2025. HISTORY OF PRESENT ILLNESS: The patient is an 85-year-old female who presents here today with her daughter for complaints of right hip pain. She reports she has had this pain ongoing for several years. It has been getting progressively worse. She has tried and failed nonoperative measures and states the pain is severe enough that it limits her ability to perform activities of daily living as well as social tasks. She is now ready to pursue an anterior right total hip arthroplasty with Dr. Jaleel Mosquera on 01/24/2025. PAST MEDICAL HISTORY: 1. Osteoarthritis of the right hip. 2. Atrial fibrillation which is controlled on Eliquis. 3. CVA and pulmonary embolism in 12/2023, which was believed to be related to the patient's atrial fibrillation. She reports she only has some mild aphasia left from the CVA. 4. Systolic ejection murmur. 5. Prediabetes. 6. Breast cancer status post lumpectomy and lymph node removal. She cannot have any blood pressure or IV lab draws on the left arm. PAST SURGICAL HISTORY: 1. Lymph node removal in the left arm in 1998. 2. Lumpectomy in 1998. MEDICATIONS: Current medications include: 1. Eliquis 5 mg by mouth twice a day, which her last dose will be 01/20/2025. 2. Metoprolol ER 25 mg by mouth once a day. 3. Vitamin D one tablet by mouth once a day. ALLERGIES: SHE REPORTS ALLERGIES TO ANTIBIOTICS OF NITROFURANTOIN AND CEFUROXIME. SOCIAL HISTORY: The patient is alert and oriented, but she is forgetful. Her daughter is here today with her and her son will be staying with her for the first week postop to help her with her care. She denies the use of any alcohol, tobacco, or recreational drugs. REVIEW OF SYSTEMS: The patient's 12-point review of systems is negative with the exception of the HPI. The patient still reports occasional aphasia related to her CVA a year ago. PHYSICAL EXAMINATION: VITAL SIGNS: Weigh 141 pounds. GENERAL: She is alert and oriented. Normal insight, affect grooming, forgetful throughout conversation. HEENT: Normocephalic. Conjunctivae pink. NECK: Supple. Trachea midline. CHEST: Lungs are clear to auscultation bilaterally. Able to speak in complete sentences. CARDIAC: The patient has an irregularly irregular rate and rhythm. She does have a known history of atrial fibrillation. ABDOMEN: Soft and nontender. LOWER EXTREMITIES: The patient's right lower extremity skin is intact. There is no erythema, ecchymosis, or induration. She has a negative straight leg raise test bilaterally. She has extension 0 degrees, flexion 100 to 110 degrees. Bilateral lower extremities with positive motor sensation screening intact. The calves are supple and nontender. Ankle motion is satisfactory. Skin about the feet intact. PREOPERATIVE DIAGNOSTIC DATA: The patient's orthopedic x-ray shows severe DJD present of the right hip. Changes consistent with osteoarthritis include joint space narrowing, subchondral sclerosis, and osteophyte formation. The arthrosis primarily affects the superior compartment and there is nuyu-nw-whxj articulation present. The patient's preoperative EKG shows atrial fibrillation with premature ventricular conducted complexes at 75 beats per minute. LABORATORY DATA: CBC from 01/05/2025 shows a hemoglobin 12.5, hematocrit of 38.6, platelet count 289. Coags within normal limits, INR 1.1. Chemistries show a hemoglobin A1c of 5.7, creatinine 0.90, estimated GFR of 63. ASSESSMENT AND PLAN: The patient has advanced osteoarthritis of the right hip and is now scheduled for an anterior right total hip arthroplasty with Dr. Jaleel Mosquera on 01/24/2025. She was [facility] by [facility]. They state that the patient's risk for any major adverse cardiac events is elevated, but she meets the ACC/AHA criteria for proceeding to noncardiac surgery. She has a murmur noted on exam and the echocardiogram from 12/2023 shows an aortic valve calcification without stenosis or sclerosis. There is no additional cardiac workup recommended. She is considered to be a low risk for any pulmonary complications. She is elevated risk for postop delirium. No absolute medical contraindications identified to proceeding with the proposed surgery. The patient will receive intravenous tranexamic acid as she is just over a year from her pulmonary embolism and CVA. She will be on Eliquis 2.5 mg by mouth twice a day for 7 days postop before returning to her home dose. She will be monitored on telemetry throughout hospital stay. Discharge plans will be to home with services. She is not a candidate for same-day discharge. Questions have been answered. She acknowledges understanding and wishes to proceed. She will have one week in-home physical therapy prior to going to outpatient. The patient should receive no blood pressures or blood lab draws on the left arm due to lymph node removals. Prescriptions sent to the pharmacy today include Colace, Celebrex, Tylenol, and pantoprazole. She will require a script for pain medication and Eliquis 2.5 mg by mouth #14 tablets prior to discharge from the hospital. CONTACTS: Her son, Leno, who can be reached at [phone]. [email or web address] Not available 01/18/2025 14:40:55 Plan of Treatment Reminders Order Date Submit Date Provider Last Modified By Organization Details Last Modified Time Details Appointments POST OP 15 2024 01:30P M Judy Yarbrough PA-C Not available Not available Not available POST OP 10 2024 02:40P M Jaleel Mosquera MD Not available Not available Not available Lab None recorde d. Referral None recorde d. Procedures None recorde d. Surgeries None recorde d. Imaging XR, hip + pelvis, unilate ral, 2 or 3 view - New right hip, WB, Dr. Good s, room 203 2024 025 [facility], [address], [facility] [[email or web address] [address], [place], [address], 12/29/2024 13:00:55 Medication Orders Colace 100 mg capsule 2024 025 [facility]acy #[id number], [address] [place], [address], 01/18/2025 13:38:28 Celebre x 200 mg capsule 2024 025 [facility]armacy #[id number], [address] [place], [address], 01/18/2025 13:38:28 Tylenol 8 Hour 650 mg tablet, extende d release 2024 025 [id number] [address] [place], [address], 01/18/2025 13:38:28 pantopr azole 40 mg tablet, delayed release 2024 025 [id number] [address] [place], [address], 01/18/2025 13:38:28 Patient TargetsNo targets recorded. Patient InstructionsNo instructions recorded. Reason for Referral None Reported. Results Created Date Observation Date Name Description Value Unit Range Abnormal Flag Note LastModifiedBy Organization Detail LastModifiedTime 12/15/1912/14/2024 XR, hip + pelvi s, unila teral , 2 or 3 view [email or web address]:/ [email or web address] ?Encry pted=s hAaTro YD8dLq bEUv6g %2BXZw aYqtaq 0bqfl% 2Fg9IQ a4ajBk vP9nXo QUaueC m3YtLR FvZlgJ JJ8mAn HZtai3 0c9169 AC0KqY n2AVKe jKiQtr MwF INTERFACE [facility] [address] [facility] [[email or web address] [address], [place], [address], 12/14/2024 14:11:28 12/15/19 25 12/14/2024 XR, hip + pelvi s, unila teral , 2 or 3 view http:/ [email or web address] ?Encry pted=s hAaTro YD8dLq bEUv6g %2BXZw aYqtaq 0bqfl% 2Fg9IQ a4ajBk vP9nXo QUaueC m3YtLR FvZlgJ JJ8mAn HZtai3 0f3877 AC0KqY n2AVKe jKiQtr MwF INTERFACE [facility] [address], [place], [address], 12/14/2024 14:11:30 Result Notes None recorded. Problems Name Problem SNOMED Code Status Onset Date Resolution Date Notes Provider Name and Address Organization Details Recorded Time Arthritis of right hip 1982785749859 101 Active 2024 HENRY lopez [facility] 5 13:52:37 Osteoarthr itis of right hip joint 0653969752301 07 Active 2024 Jaleel Mosquear MD [address], [place], [address] , [facility] 5 15:34:11 Problem Notes None recorded. Procedures Surgical History Date Name Laterality Status Provider Name and Address Organization Details Recorded Time 5 74725 Therapeutic Exercise (1:1) completed Ann Hubbardston, PT [address], [place], [address], [facility] 12/31/2024 08:14:17 5 59124: Low complexity PT Eval completed Ann Hubbardston, PT [address], [place], [address], [facility] 12/31/2024 08:14:18 5 G8420 BMI Normal, No Follow-Up Plan Required completed Ann Chris, PT [address], [place], [address], [facility] 12/31/2024 08:14:12 5 G8427 Current Medication Documented completed Ann Chris, PT [address], [place], [address], [facility] 12/31/2024 15:21:22 Imaging Results Imaging Date Name Status LastModified by Organiz ation Details LastModified Time 12/14/2024 XR, hip + pelvis, unilateral , 2 or 3 view completed INTERFACE [facility] [address], [place], [address], 12/14/2024 14:11:28 12/14/2024 XR, hip + pelvis, unilateral , 2 or 3 view completed INTERFACE [facility] [address], [place], [address], 12/14/2024 14:11:30 Procedure Notes None recorded. Medical Equipment None Reported. Allergies Allergen ID Allergen Name Allergen Category Reaction Reaction Severity Criticality Documentation Date Start Date Code Code System Note Provider Name and Address Organization Details Recorded Time 098282 nitrofura ntoin medicatio n Not available Not available Not available 11/25/2024 7454 RxNorm KAYLIA L'HEUREUX [facility] 10:13:57 682094 cefuroxim e Not available Not available Not available Not available 11/25/2024 2194 RxNorm KAYLIA L'HEUREUX [facility] 10:14:59 Medications Name Sig Start Date Stop Date Status Note LastModified by Organization Details LastModified Time Colace 100 mg capsule Take 1 capsule twice a day by oral route for 30 days. 2024 active Not Available Not Available Not Avai lable cefuroxime axetil 250 mg tablet TAKE 1 TABLET BY MOUTH TWICE DAILY 11/25 completed Not Available Not Available Not Available sulfamethoxa zole 400 mg-trimethop rim 80 mg tablet TAKE 1 TABLET BY MOUTH EVERY DAY 11/25 completed Not Available Not Available Not Available sulfamethoxa zole 800 mg-trimethop rim 160 mg tablet TAKE 1 TABLET BY MOUTH EVERY 12 HOURS FOR 7 DAYS 11/25 completed Not Available Not Available Not Available aspirin 81 mg tablet,delay ed release TAKE 1 TABLET BY MOUTH EVERY DAY 11/25 completed Not Available Not Available Not Available Celebrex 200 mg capsule Take 1 capsule every day by oral route for 33 days. 2024 active Not Available Not Available Not Avai lable levetiraceta m 250 mg tablet TAKE 1 TABLET BY MOUTH TWICE A DAY 11/25 completed Not Available Not Available Not Available pantoprazole 40 mg tablet,delay ed release Take 1 tablet every day by oral route for 30 days. 2024 active Not Available Not Available Not Avai lable metoprolol succinate ER 25 mg tablet,exten ded release 24 hr TAKE 1 TABLET BY MOUTH EVERY DAY active Not Available Not Available No t Available Tylenol 8 Hour 650 mg tablet,exten ded release Take 1 tablet 3 times a day by oral route for 33 days. 2024 active Not Available Not Available Not Avai lable Vitamin D3 50 mcg (2,000 unit) tablet TAKE 1 TABLET BY MOUTH EVERY DAY active Not Available Not Available No t Available Probiotic active Not Available Not Tia ilable Not Available Eliquis 5 mg tablet TAKE 1 TABLET (5 MG) ORALLY 2 TIMES A DAY active Not Available Not Available No t Available Vitals Date Recorded Body height Body mass index (BMI) Body weight Provider Name and Address Organization Details Last Updated DateTime 11/25/2024 167.64 cm 22.9 kg/m2 75669.12 g REESE IRWIN [facility] 11/25/2024 10:13:14 Date Recorded Body height Body mass index (BMI) Body weight Provider Name and Address Organization Details Last Updated DateTime 12/14/2024 167.64 cm 22.9 kg/m2 26251.12 g HENRY NYE [facility] 12/14/2024 13:52:14 Date Recorded Body height Body mass index (BMI) Body weight Provider Name and Address Organization Details Last Updated DateTime 12/31/2024 167.64 cm 22.9 kg/m2 56312.12 g Ann Chris, PT [address] [facility] [address], [place], [address], [facility] 12/31/2024 08:13:57 Date Recorded Body height Body mass index (BMI) Body weight Provider Name and Address Organization Details Last Updated DateTime 01/18/2025 167.64 cm 23.6 kg/m2 77036.49 g EDWARD MANUEL [facility] 01/18/2025 10:49:47 Social History Question Answer Notes LastModified by Organizat ion Details LastModified Time Tobacco Smoking Status Never Smoker REESE IRWIN [facility] 11/25/2024 10:15:52 What Is Your Level Of Alcohol Consumption? None Information not available 11/25/2024 What Is Your Relationship Status? Information not available 11/25/2024 Do You Use Any Illicit Or Recreational Drugs? No Information not available 11/25/2024 Do You Or Have You Ever Used Any Other Forms Of Tobacco Or Nicotine? No Information not available 11/25/2024 Sex: Unknown Functional Status None recorded. Mental Status None recorded. Family History Nothing Reported. Medical History Condition Response Allergies/Hayfever N Coronary Artery Disease N Anxiety/Depression N Breathing or lung disorders N Emphysema N Nerve Disorders N Thyroid Problems N COPD N Pacemaker N Anemia N Kidney/Bladder Problems Y Vascular Disease N Heart Trouble Y Heart Attack ([place]) N Gastrointestinal Disease N Cholesterol N Diabetes N Autoimmune disease N Bleeding Disorder N Inflammatory Joint disease N Orthotics N Arthritis Y Seizures/Epilepsy Y Blood Clot N AIDS/HIV N Congestive Heart Failure (CHF) N Acid Reflux (GERD) N Cancer Y Stroke Y Asthma N Circulation Problems N Peripheral Vascular Disease N Sleep Apnea N Hepatitis N Heart Disease N Rheumatoid Arthritis N Arrhythmia N Pulmonary Embolism N Headaches N Fibromyalgia N Hypertension Y Osteoporosis N Gynecological HistoryNo gynecological history recorded. Obstetrics History GPAL:G 0 P 0 0 0 0 Past Encounters Encounter ID Performer Location Encounter Start Date Encounter Closed Date Diagnosis/Indication Diagnosis SNOMED-CT Code Diagnosis ICD10 Code Diagnosis Note [id number] GERMAN Teixeira [address] [place] [address] 11/25/2024 09:42:06 12/11/2024 12:15:14 Osteoarthritis of right hip joint 9295860326 84530 M16.11 [id number] MD SHAUN Valdez [address] [place] [address] 12/14/2024 13:32:55 12/29/2024 13:00:54 Arthritis of right hip 4303982834 454633 M16.11 Osteoarthr itis of right hip joint 9794751248 30053 M16.11 [id number] MD SHAUN Valdez [facility] [address] [place] [address] 12/31/2024 12:44:48 12/31/2024 14:27:44 Osteoarthritis of right hip joint 6771371298 25069 M16.11 [id number] Miriam Malone, DAX SHAUN [address] [place] [address] 01/18/2025 10:41:04 01/26/2025 13:35:24 Osteoarthritis of right hip joint 2977774992 12240 M16.11 Health Concerns Section Related Observation LastModified by Organization Detai ls LastModified Time None Recorded Concern Status LastModified by Organization Details LastModified Time None Recorded Advance Directives Directive None Recorded Payers Encounter Date Sequence Insurance Name Policy Number Policy Chowdary Covered Member ID Chowdary Member ID Guarantor Name 11/25/2024 1 [place] [employer] Juliet Hendrixay [id number] Juliet Holguinguay 11/25/2024 2 [place] [id number] Juliet Reyna [id number] Juliet Holguinguay 12/14/2024 1 [place] Juliet Hendrixay [id number] Juliet Duguay 12/14/2024 2 [place] [id number] Juliet Holguinguay [id number] 24 Juliet Duguay 12/31/2024 1 [place] Juliet Holguinguay [id number] Juliet Duguay 12/31/2024 2 [place] [id number] Juliet Holguinguay [id number] Juliet Holguinguay 01/18/2025 1 [place] Juliet Holguinguay [id number] Juliet Duguay 01/18/2025 2 [place] [id number] Juliet Holguinguay [id number] 24 Juliet Reyna Notes Date Note Type Note Provider Name and Address Organization Details Recorded Time text/html History of present illness:Complaint: Right hip painPain: The pain is severe, it is worsened with activity and has gotten to point where it limits the patient's ability to ambulate moderate distances without needing to rest for pain relief. The patient is limited in their regular daily and social activities as a result of this painNon-operative treatment: Patient has tried and failed anti-inflammatory pain medications, Tylenol, and a home exercise program. They have not had an intra-articular corticosteroid injection but at this point in the course of their disease, an injection is not likely to provide any significant benefit and would only serve to delay surgery. She has severe [id number] disease with destructive changes of her acetabulum, there is simply no further role for nonoperative treatment Shawn is an extremely friendly and pleasant 84-year-old female who presents today for evaluation for her right hip. They have a known, longstanding history of right hip osteoarthritis and have undergone a lengthy course of conservative management with generalized failure of nonsurgical options. Their pain is severe and worsened with activity, it has gotten to the point where it is significantly interfering with their ability to perform activities of daily living as well as daily social tasks. They are interested in pursuing total hip arthroplasty for definitive relief of their pain from osteoarthritisPast family, medical, social history and review of systems has been reviewed and updated, and is located in the patient? s chart. Jaleel Mosquera MD [address], [place], [address], [facility] 12/14/2024 15:34:23 5 text/html Patient is 84 year old female, with chronic history of hip pain and OA. Presents today for prehab visit for scheduled anterior PAUL on 01/24/25. Arrives today ambulating with single point cane. Reviewed post-operative mobility and mechanics with appropriate assistive device. Has 2 steps at home without railings. Demonstrates good understanding of post-operative expectations, hip kit, and HEP. Current vocational status is retired.Functional limitations include restricted hip ROM, difficulty ambulating community distances, and pain navigating stairs. Ann Perez, PT [address], [place], [address], [facility] 12/31/2024 15:21:41 OBGyn Episode No OBEpisode recorded.
== END ==
LOC: HO.CARD 09:09
PROVIDERS: PCP Internal Medicine; Visit Provider Internal Medicine Cardiovascular Disease
DX: Z01.810 Encounter for preprocedural cardiovascular examination (principal); I48.0 Paroxysmal atrial fibrillation; I63.49 Cerebral infarction due to embolism of other cerebral artery
CPT/HCPCS: 78452; 93017; A9500; J0280; J2785

== ENCOUNTER → 2025-01-28 09:12 | Outpatient (BNV) | payer MEDICARE, SELFPAY | PROVIDERS: PCP Internal Medicine | DX: R06.02 Shortness of breath (principal) | CPT/HCPCS: 78452; 93016; 93018 ==

== ENCOUNTER 2025-04-15 10:13 | Outpatient (REF) | payer MEDICARE, SELFPAY ==
--- OUTSIDE RECORDS SUMMARY | 2025-04-15 10:42 | XMS_ITS | Patient Health Record ---
Author Organization [facility] Address [address] [place] [id number] Care Team Providers Care [employer] Name Role Phone Kenneth Correia Unavailable [phone] Reason For Referral No Information Plan Of Treatment No Information
[2025-04-15 13:52] LABS: Appearance Urine Cloudy; Glucose Urine UA Negative (Negative); PH 6.5 (5.0-9.0); Specific Gravity - Urine 1.015 (1.005-1.025); UMIC TRIGGER UA YES
== END 2025-04-15 10:14 | disposition home or self-care (01) ==
LOC: HO.HMGCLDS 10:13
PROVIDERS: PCP Internal Medicine; Visit Provider Urology
DX: N30.20 Other chronic cystitis without hematuria (principal)
CPT/HCPCS: 81001; 87086

== ENCOUNTER 2025-06-30 10:02 | Outpatient (AMB) | payer MEDICARE, SELFPAY ==
--- NOTE | 2025-06-30 10:12 | A.OFFVIS_ITS ---
Intake Visit Reasons: follow up Intake Note: Patient is present for a follow up Urology Medication: None Antibiotic Allergies:Nitrofuratoin Blood Thinners: Eliquis PVR:2ml Slate Worker Required: No Accompanied by: Self / Same As Patient Allergies nitrofurantoin Adverse Reaction (Severe, Verified 06/30/25 10:18) Diarrhea atorvastatin Adverse Reaction (Intermediate, Verified 06/30/25 10:18) muslce pain simvastatin Adverse Reaction (Intermediate, Verified 06/30/25 10:18) muscle pain cefuroxime Adverse Reaction (Verified 06/30/25 10:18) Diarrhea HPI Comments Details: 06/30/25--Ronak is here for 9 month follow-up. She has been treated for recurrent urinary tract infection in the past with a course of suppressive antibiotics. Currently she is not on daily antibiotics. She last was treated for UTI symptoms in April. Urinalysis 3+ blood leukocytes negative. I will send surveillance urine culture and send urine for cytology. History of Present Illness The patient is an 85-year-old female presenting with a follow-up for recurrent urinary tract infections. She has a history of recurrent urinary tract infections, previously managed with suppressive antibiotics, but is currently not on daily antibiotics. The last treatment for urinary tract infection symptoms was in April, and a todays urinalysis showed 3+ blood with negative leukocytes. Discussed UA results-- microscopic hematuria, and a surveillance urine culture along with urine cytology has been planned. S/P -hip replacement surgery - she is getting around well, currently in the recovery phase, engaging in regular exercise to aid rehabilitation.. She is on Eliquis. Results - Urinalysis: 3 plus blood, leukocytes negative Plan 1. Recurrent Urinary Tract Infection - Surveillance urine culture and urine cytology to be conducted to monitor for infection and other abnormalities. - Patient advised to maintain adequate hydration without overconsumption to manage urinary frequency. 2. Microscopic Hematuria - Urine cytology planned to investigate the cause of hematuria. 3.- as long as urine cytology is normal we will follow-up in 4 months. 10/15/24--Bailey is here for follow up for recurrent UTIs. She completed a suppressive course of antibiotics, Bactrim. office cystoscopy was done on 03/25/24 and Cystoscopy findings: Mild to moderate bladder wall thickening, mild inflammatory changes consistent with cystitis, no suspicious bladder lesions visualized. History of breast cancer unable to use Estrace cream. Discussed cranberry use, juice or supplement. She states she had been doing very well until about one week ago and called the office and Dr. Ayala called in a sulfa abx for bid for 7 days. I will have her cont Bactrim SS daily for 10 days. FU in 6 months Review of chart: 03/25/24--Bailey is here for office cystoscopy. She has had recurrent UTIs. She completed a suppressive course of antibiotics, Bactrim. She states that her urinary symptoms have improved. Cystoscopy findings: Mild to moderate bladder wall thickening, mild inflammatory changes consistent with cystitis, no suspicious bladder lesions visualized. History of breast cancer unable to use Estrace cream. Discussed cranberry use, juice or supplement. Follow-up in 6 months. 02/02/2024--patient is asymptomatic urine nitrite positive reviewed prior urine cultures both Klebsiella. Discussed with the patient she may have bacteria colonization however will hold on cysto today. Reschedule office cystoscopy. Discussed renal ultrasound 12/05/23--Mild bilateral mild caliectasis without rupinder hydronephrosis. No renal calculi. 11/07/23--Juliet is an 83 year old female who is here for evaluation due to dysuria. The patient states she had an acute episode of increased urinary f requency and pain with urination so went the ED on 09/08/2023. A urine culture was sent which came back less than 10,000 colonies. She followed up with her PCP and was placed on Bactrim and Pyridium which she stated helped her symptoms. Past Medical history -history of breast cancer, previous bladder suspension. The patient states she does have urinary leakage associated with urgency. She states that she has had about 2 UTIs that she can remember in her life time. Examination: Pelvic exam small urethral prolapse 14 Gambian catheter-PVR 125 mL UA: Positive leukocytes, nitrate positive. I have discussed workup to include evaluation of the upper tracts and FU for cystoscopy evaluation. Urine for cytology. Urine culture. 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 Mother No problems noted. Maternal Aunt No problems noted. Maternal Uncle No problems noted. Social History Household Members: None Housing: House Are you a primary senior caregiver to a significant other at home: No Do you presently have visiting nurse or other home services: No Alcohol intake: current Alcohol intake frequency: does not drink Alcohol type: beer and wine Patient Tobacco Use Status: Never used Tobacco e-Cigarette/Vaping Use: Never Used Second Hand Smoke Exposure: No service: No Current occupational status: retired Cognitive needs: No Hearing needs: No Vision needs: Yes Review of Systems Const All systems reviewed & are unremarkable except as noted in HPI and below Reports no additional complaints Eyes Reports no additional complaints ENT Reports no additional complaints Card Reports no additional complaints Resp Reports no additional complaints GI Reports no additional complaints Reports as per HPI Musc Reports no additional complaints Skin/Breast Reports system reviewed and no additional complaints, except as documented Neuro Reports no additional complaints Psych Reports no additional complaints Endo Reports no additional complaints Alexandre/Lymph Reports no additional complaints Aller/Immun Reports no additional complaints Office Procedures Post Void Residual Post Residual Void Post Void Residual (PVR): 2 30886-[id number] Void Residual by ultrasound Results Reviewed Results Reviewed: Date of Service: 12/05/23 US RETROPERITONEAL LIMITED (RENAL ONLY) CLINICAL INFORMATION: Urge incontinence, hematuria. COMPARISON: None available. TECHNIQUE: Real-time imaging of the kidneys. FINDINGS: RIGHT KIDNEY: 9.7 x 5.9 x 4.6 cm (SAG x AP x TRV). The kidney is normal in size, contour, and echogenicity. Renal cortical thickness is normal. No renal calculi. Mild caliectasis without rupinder hydronephrosis. 1.3 x 1.4 x 1.1 cm simple lower pole cyst is seen. No imaging follow-up is recommended. LEFT KIDNEY: 10.8 x 5.0 x 4.3 cm (SAG x AP x TRV). The kidney is normal in size, contour, and echogenicity. Renal cortical thickness is normal. No renal calculi. Mild caliectasis without rupinder hydronephrosis. There are multiple cysts, the largest is a 1.2 x 1.3 x 1.5 cm simple cyst in the lower pole. No imaging follow-up is recommended. IMPRESSION: Mild bilateral mild caliectasis without rupinder hydronephrosis. No renal calculi. Assessment & Plan Assessment & Plan (1) Urethral prolapse: Code(s): N36.8 - Other specified disorders of urethra Category: Medical (2) Recurrent UTI: Code(s): N39.0 - Urinary tract infection, site not specified Category: Medical (3) Chronic cystitis: Code(s): N30.20 - Other chronic cystitis without hematuria Category: Medical (4) Microscopic hematuria: Code(s): R31.29 - Other microscopic hematuria Category: Medical Plan Plan 1. Recurrent Urinary Tract Infection - Surveillance urine culture and urine cytology to be conducted to monitor for infection and other abnormalities. - Patient advised to maintain adequate hydration without overconsumption to manage urinary frequency. 2. Microscopic Hematuria - Urine cytology planned to investigate the cause of hematuria. 3.- as long as urine cytology is normal we will follow-up in 4 months. Orders: Orders Urine Culture Today N30.20 - Other chronic cystitis without hematuria Urine Cytology Today N30.20 - Other chronic cystitis without hematuria AMB Post Void Residual by ultrasound Today N30.20 - Other chronic cystitis without hematuria, N36.8 - Other specified disorders of urethra, N39.0 - Urinary tract infection, site not specified, N39.41 - Urge incontinence AMB Urinalysis Automated Today N30.20 - Other chronic cystitis without hematuria, N36.8 - Other specified disorders of urethra, N39.0 - Urinary tract infection, site not specified, N39.41 - Urge incontinence Patient Instructions: The patient had an opportunity to ask questions regarding treatment plan. The patient expressed understanding and agreement with the above treatment plan. The patient is aware they should contact our office by phone for worsening of their current condition or the appearance of new symptoms. Compliance is encouraged with any medications and followup testing that is ordered. It is a privilege to be allowed the opportunity to participate in the urologic care of your patient. If you have any questions or concerns regarding treatment for the above conditions please do not hesitate to contact me. The office telephone contact is [phone]. This note is constructed in part using voice recognition software. While every effort has been made to ensure accuracy publications inspector errors may have been included. Yours sincerely, Mackenzie Turk MD Scribe Plan - Not visible on output: Patient was informed and verbally consented to the use of an ambient scribe for clinic note documentation during this visit. Coding Level of Care Code Est Pt Level 4 (61061) Diagnoses Urethral prolapse N36.8 Recurrent UTI N39.0 Chronic cystitis N30.20 Microscopic hematuria R31.29 CPT Codes Post Residual Void - PVR CPT Code: 18116-Bnmt Void Residual by ultrasound ([id number])
--- OUTSIDE RECORDS SUMMARY | 2025-06-30 12:09 | XMS_ITS | Patient Health Record ---
Author Organization [facility] Address [address] [place] [address] Care Team Providers Care Transition Mgr Name Role Phone Kenneth Correia Unavailable [phone] Reason For Referral No Information Plan Of Treatment No Information
== END 2025-06-30 10:50 | disposition home or self-care (01) ==
LOC: HO.HUSH 10:03
PROVIDERS: PCP Internal Medicine; Visit Provider Urology
DX: N36.8 Other specified disorders of urethra (principal); N39.0 Urinary tract infection, site not specified; N30.20 Other chronic cystitis without hematuria; R31.29 Other microscopic hematuria; N39.41 Urge incontinence
CPT/HCPCS: 99214

== ENCOUNTER → 2025-06-30 10:02 | Outpatient (BNVA) | payer MEDICARE, SELFPAY | PROVIDERS: PCP Internal Medicine; Visit Provider Urology | DX: R31.29 Other microscopic hematuria (principal); N30.20 Other chronic cystitis without hematuria; N36.8 Other specified disorders of urethra; N39.41 Urge incontinence; Z79.01 Long term (current) use of anticoagulants | CPT/HCPCS: 51798; 81003; 99212 ==

== ENCOUNTER 2025-06-30 16:53 | Outpatient (REF) | payer MEDICARE, SELFPAY | END 2025-06-30 16:54 | disposition home or self-care (01) | LOC: HO.LNP 16:53 | PROVIDERS: Visit Provider Urology | DX: N39.41 Urge incontinence (principal); N36.8 Other specified disorders of urethra; N39.0 Urinary tract infection, site not specified | CPT/HCPCS: 87086; 88112 ==

== ENCOUNTER 2025-07-21 10:54 | Outpatient (REF) | payer MEDICARE, SELFPAY ==
--- NOTE | ~2025-07-21 | MM_ITS ---
EXAMINATION: MM SCREENING DIGITAL BREAST TOMOSYNTHESIS, BILATERAL CLINICAL INFORMATION: Screening. Asymptomatic. COMPARISON: Mammography: Comparison is made with available priors TECHNIQUE: Digital breast mammography with tomosynthesis is performed in both the craniocaudal and mediolateral oblique views along with computer-aided detection (CAD). FINDINGS: There are scattered areas of fibroglandular density. Left postsurgical changes are stable. There are no significant masses, abnormal calcifications, or other abnormalities. MM/MM tomosynthesis screening BI IMPRESSION: No mammographic evidence of malignancy. ASSESSMENT: BI-RADS Category 2: Benign RECOMMENDATION: Routine annual mammography screening. 1 year F/U This examination should not preclude the clinical evaluation of a suspicious palpable abnormality. This patient's information was entered into a reminder system with a target due date for their next mammogram. Electronically signed by: Sammie Peralta DO 07/21/2025 02:27 PM EDT
--- OUTSIDE RECORDS SUMMARY | 2025-07-21 13:47 | XMS_ITS | Patient Health Record ---
Author Organization [facility] Address [address] [place] [id number] Care Team Providers Care [employer] Name Role Phone Kenneth Correia Unavailable [phone] Reason For Referral No Information Plan Of Treatment No Information
== END 2025-07-21 10:55 | disposition home or self-care (01) ==
LOC: HO.MAMMO 10:54
PROVIDERS: PCP Internal Medicine; Visit Provider Internal Medicine
DX: Z12.31 Encounter for screening mammogram for malignant neoplasm of breast (principal)
CPT/HCPCS: 77063; 77067

== ENCOUNTER → 2025-07-21 11:15 | Outpatient (BNV) | payer MEDICARE, SELFPAY | PROVIDERS: PCP Internal Medicine; Visit Provider Internal Medicine | DX: Z12.31 Encounter for screening mammogram for malignant neoplasm of breast (principal) | CPT/HCPCS: 77063; 77067 ==

== ENCOUNTER 2025-07-27 09:40 | Outpatient (REF) | payer MEDICARE, SELFPAY ==
--- OUTSIDE RECORDS SUMMARY | 2025-07-27 11:18 | XMS_ITS | Patient Health Record ---
Author Organization [facility] Address [address] [place] [id number] Care Team Providers Care Machinist General Name Role Phone Kenneth Correia Unavailable [phone] Reason For Referral No Information Plan Of Treatment No Information
[2025-07-27 13:12] LABS: Appearance Urine Clear; Glucose Urine UA Negative (Negative); PH 6.5 (5.0-9.0); Specific Gravity - Urine 1.015 (1.005-1.025); UMIC TRIGGER UA YES
== END 2025-07-27 09:41 | disposition home or self-care (01) ==
LOC: HO.HMGCLDS 09:40
PROVIDERS: PCP Internal Medicine; Visit Provider Urology
DX: N39.0 Urinary tract infection, site not specified (principal)
CPT/HCPCS: 81001; 87086

== ENCOUNTER 2025-08-01 15:22 | Outpatient (AMB) | payer MEDICARE, SELFPAY ==
--- NOTE | 2025-08-01 15:42 | A.OFFVIS_ITS ---
Intake Visit Reasons: Bladder/follow up Intake Note: Patient is present for a bladder/follow up Urology Medication: None Antibiotic Allergies:Nitrofuratoin Blood Thinners: Eliquis PVR:194ml Cessation Systems Outreach Specialist Required: No Accompanied by: Self / Same As Patient Allergies nitrofurantoin Adverse Reaction (Severe, Verified 08/01/25 16:29) Diarrhea atorvastatin Adverse Reaction (Intermediate, Verified 08/01/25 16:29) muslce pain simvastatin Adverse Reaction (Intermediate, Verified 08/01/25 16:29) muscle pain cefuroxime Adverse Reaction (Verified 08/01/25 16:29) Diarrhea HPI Comments Details: 08/01/25-- History of Present Illness The patient is an 85-year-old female presenting for follow-up regarding her urinary tract infections. She reports feeling well and no longer experiencing symptoms of a bladder infection. Previously, she experienced frequent urination, approximately every two hours during the day and three times at night, attributed to her high fluid intake. She has adjusted her fluid intake, which has improved her symptoms, and emphasizes the importance of hydration while avoiding excessive bathroom trips. Recommendations include adding lemon to water for urinary tract health and maintaining proper hygiene practices. Cranberry juice is suggested as an alternative, with a preference for organic options. Plan Urinary Tract Infection (Uti) - Monitor symptoms and avoid unnecessary antibiotics unless symptoms reappear. - Encourage hydration with lemon water or cranberry juice to support urinary tract health. - Maintain proper hygiene practices to prevent contamination. 06/30/25--Bailey is here for 9 month follow-up. She has been treated for recurrent urinary tract infection in the past with a course of suppressive antibiotics. Currently she is not on daily antibiotics. She last was treated for UTI symptoms in April. Urinalysis 3+ blood leukocytes negative. I will send surveillance urine culture and send urine for cytology. History of Present Illness The patient is an 85-year-old female presenting with a follow-up for recurrent urinary tract infections. She has a history of recurrent urinary tract infections, previously managed with suppressive antibiotics, but is currently not on daily antibiotics. The last treatment for urinary tract infection symptoms was in April, and a todays urinalysis showed 3+ blood with negative leukocytes. Discussed UA results-- microscopic hematuria, and a surveillance urine culture along with urine cytology has been planned. S/P -hip replacement surgery - she is getting around well, currently in the recovery phase, engaging in regular exercise to aid rehabilitation.. She is on Eliquis. Results - Urinalysis: 3 plus blood, leukocytes negative Plan 1. Recurrent Urinary Tract Infection - Surveillance urine culture and urine cytology to be conducted to monitor for infection and other abnormalities. - Patient advised to maintain adequate hydration without overconsumption to manage urinary frequency. 2. Microscopic Hematuria - Urine cytology planned to investigate the cause of hematuria. 3.- as long as urine cytology is normal we will follow-up in 4 months. 10/15/24--Bailey is here for follow up for recurrent UTIs. She completed a suppressive course of antibiotics, Bactrim. office cystoscopy was done on 03/25/24 and Cystoscopy findings: Mild to moderate bladder wall thickening, mild inflammatory changes consistent with cystitis, no suspicious bladder lesions visualized. History of breast cancer unable to use Estrace cream. Discussed cranberry use, juice or supplement. She states she had been doing very well until about one week ago and called the office and Dr. Ayala called in a sulfa abx for bid for 7 days. I will have her cont Bactrim SS daily for 10 days. FU in 6 months 03/25/24--Bailey is here for office cystoscopy. She has had recurrent UTIs. She completed a suppressive course of antibiotics, Bactrim. She states that her urinary symptoms have improved. Cystoscopy findings: Mild to moderate bladder wall thickening, mild inflammatory changes consistent with cystitis, no suspicious bladder lesions visualized. History of breast cancer unable to use Estrace cream. Discussed cranberry use, juice or supplement. Follow-up in 6 months. 02/02/2024--patient is asymptomatic urine nitrite positive reviewed prior urine cultures both Klebsiella. Discussed with the patient she may have bacteria colonization however will hold on cysto today. Reschedule office cystoscopy. Discussed renal ultrasound 12/05/23--Mild bilateral mild caliectasis without rupinder hydronephrosis. No renal calculi. 11/07/23--Juliet is an 83 year old female who is here for evaluation due to dysuria. The patient states she had an acute episode of increased urinary frequency and pain with urination so went the ED on 09/08/2023. A urine culture was sent which came back less than 10,000 colonies. She followed up with her PCP and was placed on Bactrim and Pyridium which she stated helped her symptoms. Past Medical history -history of breast cancer, previous bladder suspension. The patient states she does have urinary leakage associated with urgency. She states that she has had about 2 UTIs that she can remember in her life time. Examination: Pelvic exam small urethral prolapse 14 Uzbek catheter-PVR 125 mL UA: Positive leukocytes, nitrate positive. I have discussed workup to include evaluation of the upper tracts and FU for cystoscopy evaluation. Urine for cytology. Urine culture. 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 Mother No problems noted. Maternal Aunt No problems noted. Maternal Uncle No problems noted. Social History Household Members: None Housing: House Are you a primary care transitions nurse to a significant other at home: No Do you presently have visiting nurse or other home services: No Alcohol intake: current Alcohol intake frequency: does not drink Alcohol type: beer and wine Patient Tobacco Use Status: Never used Tobacco e-Cigarette/Vaping Use: Never Used Second Hand Smoke Exposure: No service: No Current occupational status: retired Cognitive needs: No Hearing needs: No Vision needs: Yes Review of Systems Const All systems reviewed & are unremarkable except as noted in HPI and below Reports no additional complaints Eyes Reports no additional complaints ENT Reports no additional complaints Card Reports no additional complaints Resp Reports no additional complaints GI Reports no additional complaints Reports as per HPI Musc Reports no additional complaints Skin/Breast Reports system reviewed and no additional complaints, except as documented Neuro Reports no additional complaints Psych Reports no additional complaints Endo Reports no additional complaints Alexandre/Lymph Reports no additional complaints Aller/Immun Reports no additional complaints Office Procedures Post Void Residual Post Residual Void Post Void Residual (PVR): 194 [id number] Void Residual by ultrasound Assessment & Plan Assessment & Plan (1) Recurrent UTI: Code(s): N39.0 - Urinary tract infection, site not specified Category: Medical (2) Chronic cystitis: Code(s): N30.20 - Other chronic cystitis without hematuria Category: Medical (3) Microscopic hematuria: Code(s): R31.29 - Other microscopic hematuria Category: Medical Plan Plan Urinary Tract Infection (Uti) - Monitor symptoms and avoid unnecessary antibiotics unless symptoms reappear. - Encourage hydration with lemon water or cranberry juice to support urinary tract health. - Maintain proper hygiene practices to prevent contamination. Orders: Orders AMB Post Void Residual by ultrasound 08/01/25 N39.0 - Urinary tract infection, site not specified Patient Instructions: Patient was informed and verbally consented to the use of an ambient scribe for clinic note documentation during this visit. Scribe Plan - Not visible on output: Patient was informed and verbally consented to the use of an ambient scribe for clinic note documentation during this visit. Coding Level of Care Code Est Pt Level 3 (07765) Diagnoses Recurrent UTI N39.0 Chronic cystitis N30.20 Microscopic hematuria R31.29 CPT Codes Post Residual Void - PVR CPT Code: 12814-Wtek Void Residual by ultrasound ([id number])
--- OUTSIDE RECORDS SUMMARY | 2025-08-01 18:38 | XMS_ITS | Patient Health Record ---
Author Organization [facility] Address [address] [place] [id number] Care Team Providers Care Corn Detasseler Name Role Phone Kenneth Correia Unavailable [phone] Reason For Referral No Information Plan Of Treatment No Information
== END 2025-08-01 16:45 | disposition home or self-care (01) ==
LOC: HO.HUSH 15:23
PROVIDERS: PCP Internal Medicine; Visit Provider Urology
DX: N39.0 Urinary tract infection, site not specified (principal); N30.20 Other chronic cystitis without hematuria; R31.29 Other microscopic hematuria
CPT/HCPCS: 99213

== ENCOUNTER → 2025-08-01 15:22 | Outpatient (BNVA) | payer MEDICARE, SELFPAY | PROVIDERS: PCP Internal Medicine; Visit Provider Urology | DX: N30.20 Other chronic cystitis without hematuria (principal); R31.29 Other microscopic hematuria | CPT/HCPCS: 51798; 99212 ==